=== PATIENT | male | born 1960 | race Caucasian/White ===

== ENCOUNTER 2016-05-12 06:32 | Inpatient (IN) | payer BC ==
[2016-04-11 15:01] VITALS: BMI 35.0
--- NOTE | 2016-04-11 15:35 | PAT Medication Instructions ---
Service Date Apr 11, 2016. Current Home Medication List Aspirin (Aspirin Ec), 81 MG PO QAM Fish Oil (Cabool-3), 2 TAB PO QAM Glucosamine-Chondroitin (Glucosamine & Chondroitin 500-400 mg), 2 TAB PO QAM Ibuprofen (Motrin), 600 MG PO Q6H PRN for Pain Ibuprofen-Diphenhydramine Citr (Ibuprofen Pm), 1 TAB PO HS PRN for RN Multivitamin (Multivitamin), 1 TAB PO QAM [Cinnamon], 2 TAB PO QAM [Pomegranite], 2 TAB PO QAM [Turmeric], 1 TAB PO QAM [Vitamin C], 2 TAB PO QAM [Vitamin D ], 1 TAB PO QAM Medication Instructions For Your Scheduled Surgery - Check with surgeon for instructions: Ibuprofen (Motrin), 600 MG PO Q6H PRN for Pain Ibuprofen-Diphenhydramine Citr (Ibuprofen Pm), 1 TAB PO HS PRN for RN - Hold the following medications 2 weeks prior to surgery: [Turmeric], 1 TAB PO QAM [Cinnamon], 2 TAB PO QAM Fish Oil (Cabool-3), 2 TAB PO QAM Glucosamine-Chondroitin (Glucosamine & Chondroitin 500-400 mg), 2 TAB PO QAM - Hold the following medications the morning of surgery: [Vitamin C], 2 TAB PO QAM [Vitamin D ], 1 TAB PO QAM Multivitamin (Multivitamin), 1 TAB PO QAM [Pomegranate], 2 TAB PO QAM - Take the following medications the morning of surgery with a sip of water: Aspirin (Aspirin Ec), 81 MG PO QAM (okay to continue per surgeon) If you have any questions please call us at [phone] (Lashanda Berkowitz PA-C) or [phone] or [phone]
--- NOTE | 2016-04-11 16:13 | DIAGNOSTIC IMAGING REPORT ---
CHEST 2 VIEWS ROUTINE CLINICAL HISTORY: PAT preoperative evaluation COMPARISON STUDY: No previous studies for comparison. FINDINGS: The bones soft tissues and hemidiaphragms are normal. The cardiomediastinal silhouette is normal. The lungs are clear. The pulmonary vasculature is normal. IMPRESSION: Negative chest. Electronically signed by: Wil Rae M.D. 04/11/2016 4:12 PM Dictated Date/Time: 04/11/2016 4:12 PM
[2016-04-11 16:27] LABS: URINE APPEARANCE CLEAR (CLEAR); URINE BILIRUBIN NEG (NEG); URINE COLOR YELLOW; URINE NITRITE NEG (NEG); URINE SPECIFIC GRAVITY 1.015 (1.000-1.030); UROBILINOGEN NEG (NEG)
[2016-04-11 16:27] LABS: BASO % 0.4 %; BASO ABS # 0.02 K/uL (0-0.2); COMPLETE YES; EOS % 0.5 %; HEMATOCRIT 43.8 % (42-52); IG% 0.2 %; LYMPH % 39.7 %; LYMPH ABS # 2.19 K/uL (1.2-3.4); MEAN CELL VOLUME 86.4 fL (80-100); MEAN PLATELET VOLUME 9.6 fL (7.4-10.4); MONO % 9.6 %; NEUT % 49.6 %; PLATELET COUNT 177 K/uL (130-400); RED BLOOD COUNT 5.07 M/uL (4.7-6.1); WHITE BLOOD COUNT 5.52 K/uL (4.8-10.8)
[2016-04-11 16:34] LABS: MANUAL MICROSCOPIC REQUIRED? NO; REVIEW REQ? NO
[2016-04-11 16:37] LABS: PROTHROMBIN TIME (PATIENT) 10.2 SECONDS (9.0-12.0)
[2016-04-11 16:54] LABS: BUN/CREATININE RATIO 14.2 (10-20); CALCIUM 9.2 mg/dl (8.5-10.1); CREATININE 0.89 mg/dl (0.60-1.40); POTASSIUM 4.5 mmol/L (3.5-5.1)
--- NOTE | 2016-05-10 17:14 | HISTORY & PHYSICAL EXAMINATION ---
DATE OF ADMISSION: 05/12/2016 CHIEF COMPLAINT: Osteoarthritis of the left knee. HISTORY OF PRESENT ILLNESS: Adam is a very pleasant 55-year-old male who had an ACL reconstruction in the past. Unfortunately, he has gone on to develop significant arthritis of the left knee. After failing extensive conservative treatment including multiple injections, he has elected to proceed with a left total knee arthroplasty. PAST MEDICAL HISTORY: Denies. PAST SURGICAL HISTORY: Significant for arthroscopy of bilateral knees and a right shoulder arthroscopy in 2015. ALLERGIES: None. FAMILY HISTORY: Noncontributory. CURRENT MEDICATIONS: Include aspirin 81 mg daily and ibuprofen as needed for pain. FAMILY HISTORY: Noncontributory. SOCIAL HISTORY: He is , has 5 children. Rarely drinks. He is mildly active. REVIEW OF SYSTEMS: He complains of left knee pain. All other pertinent review of systems is negative. PHYSICAL EXAMINATION: GENERAL: He is awake, alert and oriented x3. He is in no apparent distress. He is very pleasant. HEENT: Pupils are equal, round and reactive to light. Extraocular motion intact. Oral mucosa is pink and moist. HEART: Regular rate per radial pulse. LUNGS: Fiona symmetrically bilaterally with no audible breath sounds. ABDOMEN: Soft, nontender, and nondistended. MUSCULOSKELETAL: On physical examination of the left knee, he has good active range of motion. He has no effusion. He has a lot of pain over the medial and lateral joint line and over the patellofemoral region. IMPRESSION: Osteoarthritis of the left knee. PLAN: We will proceed with a Biomet Vanguard left total knee arthroplasty. Postoperatively, he will be kept likely 2 midnights in the hospital for postoperative medical management. We will start him on aspirin 325 mg twice a day postoperatively.
[2016-05-12] VITALS (10 sets, daily range): BP systolic 112–147; BP diastolic 65–90; PULSE 55–97; TEMP 36.4–36.8; O2SAT 94–98; Ht 175.3 cm; Wt 106.4 kg
[~2016-05-12] VITALS: Ht 175.3 cm; Wt 106.4 kg
[~2016-05-12 06:32] MED LIST: ACETAMINOPHEN 500 MG TAB PO SCH; ASPI81TA28 PO; BUPIVACAINE 0.5 % 5 MG/1 ML PF 10ML VIAL ONE; BUPIVACAINE/EPINEPHRINE 0.25% 1:200,000 30 ML VIAL ONE; CEFAZOLIN 2000 MG/60 ML D5W 60 ML IV SCH; CINNAMON PO; FAMOTIDINE 20 MG TAB PO SCH; GABAPENTIN 300 MG CAP PO SCH; GLUC1CAP33 PO; IBUP-1450 PO; IBUP1TAB55 PO; LACTATED RINGER'S 1000ML 1,000 ML IV SCH; LACTATED RINGER'S 1000ML IV SCH; MULT-506 PO; OMEG10007 PO; POMEGRANITE PO; ROPIVACAINE 5MG/ML 30 ML 150 MG, BUPIVACAINE/EPINEPHR 0.5% MPF 30 ML, KETOROLAC TROMETH... INFIL SCH; TURMERIC PO; VITAMIN C PO; VITAMIN D PO
[2016-05-12] MEDS ORDERED: FENTANYL CITRATE INJ 50 MCG/1 ML 2 ML VIAL ONE (06:50)
[2016-05-12] MEDS ORDERED: MIDAZOLAM HCL 1 MG/ML 2ML VIAL ONE ×2 (06:50→09:12)
--- NOTE | 2016-05-12 06:51 | History & Physical Bridge Note ---
H&P Re-Evaluation Bridge Note: I have examined the patient, reviewed the History & Physical and in the interval since the performance of the History & Physical I have noted the following changes of clinical significance: No changes noted
[2016-05-12] MEDS ORDERED: BACITRACIN 50000 UNIT VIAL ONE (07:28)
[2016-05-12] MEDS ORDERED: ORTHO JOINT ANESTHETIC ONE (07:28)
[2016-05-12] MEDS ORDERED: MEPERIDINE HCL 25 MG/ML CARP IV PRN (07:30)
[2016-05-12] MEDS ORDERED: PHENYLEPHRINE 100MCG/ML 5ML SYR IV PRN (07:30)
[2016-05-12] MEDS ORDERED: ONDANSETRON INJ 2 MG/ML 2 ML VIAL IV PRN ×2 (07:30→11:45)
[2016-05-12] MEDS ORDERED: FLUMAZENIL 0.1 MG/1 ML 10 ML VIAL IV PRN (07:30)
[2016-05-12] MEDS ORDERED: HYDROmorphone INJ 2 MG/ML SYR/VIAL IV PRN (07:30)
[2016-05-12] MEDS ORDERED: NALOXONE HCL 0.4 MG/1 ML VIAL/CARP IV PRN (07:30)
[2016-05-12] MEDS ORDERED: FENTANYL CITRATE INJ 50 MCG/1 ML 2 ML VIAL IV PRN (07:30)
[2016-05-12] MEDS ORDERED: LABETALOL HCL IV 5 MG/ML 20ML IV PRN (07:30)
[2016-05-12] MEDS ORDERED: ATROPINE SULFATE 0.1 MG/ML 5ML SYR IV PRN (07:30)
[2016-05-12] MEDS ORDERED: EpHEDrine SULFATE INJ 50 MG/ML AMP IV PRN (07:30)
[2016-05-12] MEDS: TRANEXAMIC ACID INJ 1,000 MG in SODIUM CHLORIDE 0.9% 100ML 100 ML IV SCH ×2 (08:19→14:00)
[2016-05-12] MEDS ORDERED: LIDOCAINE HCL 2% 2 ML VIAL (20MG/ML) ONE (08:47)
[2016-05-12] MEDS ORDERED: PROPOFOL IV EMULSION 10 MG/ML 20 ML VIAL IV ONE ×3 (08:47→11:02)
[2016-05-12] MEDS ORDERED: ONDANSETRON INJ 2 MG/ML 2 ML VIAL ONE (08:47)
--- NOTE | 2016-05-12 11:31 | [facility] Post Operative Brief Note ---
Immediate Operative Summary Operative Date May 12, 2016. Pre-Operative Diagnosis Osteoarthritis left knee Post-Operative Diagnosis Same Procedure(s) Performed Left total knee arthroplasty--cemented Surgeon Dr Jarvis Panel Wirer Surgeon(s) Romel Alicia PA-C Estimated Blood Loss 200ml Findings as above Specimens A. Left knee bone and tissue B. explanted hardware left knee x2 Complication(s) None Disposition Recovery Room / PACU
[2016-05-12] MEDS ORDERED: METOCLOPRAMIDE HCL INJ 5 MG/ML 2 ML VIAL IV PRN (11:45)
[2016-05-12] MEDS ORDERED: MoRPHine SULFATE 2 MG/ML CARP IV PRN (11:45)
[2016-05-12] MEDS ORDERED: BISACODYL 10 MG SUPP PR PRN (11:45)
[2016-05-12] MEDS ORDERED: SOD PHOSPHATE/SOD BIPHOSPHATE ENEMA 132 ML BTL PR PRN (11:45)
[2016-05-12] MEDS ORDERED: SILVER SULFADIAZINE 1% CR 50 GM JAR EXT PRN (11:45)
[2016-05-12] MEDS ORDERED: MAGNESIUM HYDROXIDE SUSP 30 ML UDC PO PRN (11:45)
[2016-05-12] MEDS ORDERED: OXYCODONE HCL IR 5 MG TAB (IMMEDIATE RELEASE) PO PRN (11:45)
--- NOTE | 2016-05-12 12:30 | DIAGNOSTIC IMAGING REPORT ---
TWO VIEWS LEFT KNEE CLINICAL HISTORY: Postoperative examination. FINDINGS: AP and crosstable lateral portable views of the left knee are obtained. A left knee arthroplasty is in near anatomic alignment. There has been undersurface remodeling of the patella. No acute fracture is seen. There are expected postoperative changes around the knee including a surgical drain, soft tissue edema, and subcutaneous gas. IMPRESSION: Expected postoperative changes status post left knee arthroplasty. No acute fracture is seen. Electronically signed by: Nirav Resendiz M.D. 05/12/2016 12:29 PM Dictated Date/Time: 05/12/2016 12:29 PM
--- NOTE | 2016-05-12 12:46 | Anesthesiology Progress Note ---
Anesthesia Post Op Note Date & Time May 12, 2016 at 12:46 Vital Signs Pain Intensity: 0 Vital Signs Past 12 Hours Date Time Temp Pulse Resp B/P Pulse Ox O2 Delivery O2 Flow Rate FiO2 05/12/16 12:25 36.9 58 16 05/12/16 12:25 58 16 114/76 97 05/12/16 12:20 59 13 05/12/16 12:20 60 13 112/76 97 05/12/16 12:15 56 14 05/12/16 12:15 57 14 114/73 96 05/12/16 12:10 57 10 05/12/16 12:10 58 10 107/76 98 05/12/16 12:08 112/78 05/12/16 12:05 36.6 56 16 112/78 98 Nasal Cannula 2 05/12/16 06:50 36.8 81 16 129/80 95 Room Air Notes Mental Status: alert / awake / arousable, participated in evaluation Pt Amnestic to Procedure: Yes Nausea / Vomiting: adequately controlled Pain: adequately controlled Airway Patency, RR, SpO2: stable & adequate BP & HR: stable & adequate Hydration State: stable & adequate Neuraxial Anesthesia: was administered, sensory block is resolving Anesthetic Complications: no major complications apparent
[2016-05-12] MEDS: D5W AND 1/2NSS + 20MEQ KCL 1,000 ML IV SCH (14:06)
[2016-05-12] MEDS: ACETAMINOPHEN IV 1,000 MG in EMPTY BAG 0 ML IV SCH ×2 (14:07→22:21)
[2016-05-12] MEDS ORDERED: NURSING VERBAL MED ORDER ONE (16:15)
--- NOTE | 2016-05-12 16:58 | OPERATIVE REPORT ---
DATE OF OPERATION: 05/12/2016 PREOPERATIVE DIAGNOSIS: Osteoarthritis of the left knee status post anterior cruciate ligament reconstruction. POSTOPERATIVE DIAGNOSIS: Same. PROCEDURE: Left total knee arthroplasty with removal of hardware. SURGEON: Dr. Tim Jarvis. HOT BLAST WORKER: Romel Alicia PA-C, whose assistance was necessary for positioning the leg and helping with instrumentation. ANESTHESIA: Spinal with a left adductor nerve block. COMPLICATIONS: None. CONDITION: Stable to PACU. INDICATIONS FOR PROCEDURE: Adam is a pleasant 55-year-old male who presented to my office with increasing left knee pain. He had an ACL done in the past and had 2 metal interference screws, one on the femoral side and the other on the tibial side. Unfortunately, he was progressing on to arthritis in this knee and after failing extensive conservative treatment, elected to undergo a left total knee arthroplasty. DESCRIPTION OF PROCEDURE: On 05/12/2016, he arrived at [facility] for the above procedure. He was seen in the preoperative holding area and the operative extremity was identified and signed. He was given a preoperative antibiotic and taken back to the operating room, laid on the table in supine position. He had a spinal anesthetic and a left adductor nerve block. The left knee was then prepped and draped in sterile fashion. Time-out was done and the patient and operative extremity was properly identified. A standard incision was made directly over the patella. Dissection was taken down through the fascia and a medial parapatellar approach was used. There was some scarring of the patella tendon, which made the case a little bit more difficult. Time was spent doing a release of the medial and lateral meniscus as well as the ACL and PCL. The patella was everted. It was very large patella. An 8 mm was resected off the posterior patella. The patella measured to be a size 34 and 3 drill holes were placed. The knee was then flexed. A drill was sent down the center of the femoral canal. An intramedullary kristina was then placed. Off that kristina, a distal femoral cutting block was placed and 9 mm was resected off the distal femur. A posterior referencing guide was then used and the femur measured to be a size 72.5. Two drill holes were placed in 3 degrees of external rotation and a 4-in-1 cutting block was impacted into place. Anterior, posterior and chamfer cuts were then made. A box cutting guide was then placed and the box was resected for the posterior stabilizing component. The proximal tibia was then exposed. A drill was sent down the center of the tibial canal followed by an intramedullary kristina. Off that kristina, a proximal tibial resection guide was placed and 2 mm was resected off the low medial side. This was checked with a spacer block and I did have to take an additional 2 mm off the proximal tibia. The tibia measured to be a size 75. It was set in appropriate rotation and the tibia was then drilled and punched. Trial components were placed. The knee was brought through a full range of motion and felt to be stable. The surrounding soft tissues were irrigated with 3 liters of normal saline solution with bacitracin. Surrounding soft tissues were also injected with 100 mL of orthopedic pain control cocktail. The femoral, tibial, and patellar components were then cemented in place with Palacos-G cement. A size 10 polyethylene insert was used. It was snapped into place and anterior bar was locked. The knee was brought through a full range of motion and felt to be stable. Two drains were placed. The extensor mechanism was closed with #2 FiberWire suture in the superior aspect of the patella and #1 Vicryl further proximally and distally. The skin was closed with 2-0 Vicryl and 3-0 V-Loc suture and a Prineo dressing. He was then placed in a soft compressive dressing and taken to the postanesthesia care unit in stable condition. He tolerated the procedure well. To note, while drilling both the femoral and tibial canals, I did encounter the metal interference screws from his ACL reconstruction. Time was spent taking these screws out of the canals. IMPLANTS USED: I used a Biomet Vanguard left total knee arthroplasty with a 72.5 left femur, a 75 mm tibia, a 34 x 8.5 patella and a 10-mm posterior stabilized bearing. All complements were cemented with Palacos-G cement. I attest to the content of the Intraoperative Record and any orders documented therein. Any exceptions are noted below. DUYEN
[2016-05-12] MEDS: CEFAZOLIN IV 2,000 MG in DEXTROSE 5% 50ML 50 ML IV SCH (17:16)
[2016-05-12] MEDS: KETOROLAC TROMETHAMINE 30 MG/ML VIAL IV. SCH ×2 (17:19→22:20)
[2016-05-12] MEDS: ASPIRIN 325 MG ECTAB PO SCH (21:16)
[2016-05-12] MEDS: DOCUSATE SODIUM 100 MG CAP PO SCH (21:16)
[2016-05-12] MEDS: SENNA 8.6 MG TAB PO SCH (21:17)
[2016-05-12] MEDS: ZOLPIDEM TARTRATE 10 MG TAB PO PRN (22:30)
[2016-05-13] VITALS (7 sets, daily range): BP systolic 101–130; BP diastolic 63–80; PULSE 57–87; TEMP 36.8–37.3; O2SAT 92–97
[2016-05-13] MEDS: CEFAZOLIN IV 2,000 MG in DEXTROSE 5% 50ML 50 ML IV SCH (00:08)
[2016-05-13] MEDS: D5W AND 1/2NSS + 20MEQ KCL 1,000 ML IV SCH ×3 (00:08→08:45)
[2016-05-13] MEDS: KETOROLAC TROMETHAMINE 30 MG/ML VIAL IV. SCH ×4 (04:15→21:56)
[2016-05-13 05:30] LABS: HEMATOCRIT 34.1 % (42-52); MEAN CORPUSCULAR HEMOGLOBIN 31.1 pg (25-34); MEAN CORPUSCULAR HGB CONC 35.8 g/dl (32-36); MEAN PLATELET VOLUME 9.4 fL (7.4-10.4); PLATELET COUNT 154 K/uL (130-400); RED BLOOD COUNT 3.92 M/uL (4.7-6.1); WHITE BLOOD COUNT 13.19 K/uL (4.8-10.8)
[2016-05-13 05:54] LABS: BUN/CREATININE RATIO 17.1 (10-20); CALCIUM 8.2 mg/dl (8.5-10.1); CREATININE 0.93 mg/dl (0.60-1.40); POTASSIUM 4.8 mmol/L (3.5-5.1)
[2016-05-13] MEDS: ACETAMINOPHEN IV 1,000 MG in EMPTY BAG 0 ML IV SCH ×3 (06:01→22:29)
[2016-05-13] MEDS: PANTOprazole SOD 40 MG TAB PO SCH (08:45)
[2016-05-13] MEDS: ASPIRIN 325 MG ECTAB PO SCH ×2 (08:45→20:39)
[2016-05-13] MEDS: DOCUSATE SODIUM 100 MG CAP PO SCH ×2 (08:45→20:39)
[2016-05-13] MEDS: MULTIVITAMIN TAB PO SCH (08:45)
--- NOTE | 2016-05-13 09:09 | PROGRESS NOTE ---
DATE: 05/13/2016 CHIEF COMPLAINT: Status post left total knee arthroplasty postop day #1. PROGRESS: Adam was seen and examined at bedside today. Overall, he is doing fairly well. He has very little pain in his knee. He is happy with his progress at this point, has no complaints. PHYSICAL EXAMINATION: LEFT KNEE: The dressing is clean and dry and the drain is to suction. He has active dorsiflexion and plantar flexion of his left ankle. Sensation is intact throughout. DATA: He has an H\T\H today of 12.2 and 34.1. His glucose is 127. His vital signs are all stable on room air. He is voiding on his own. X-rays postoperatively of the left knee showed the prosthesis to be in near anatomic alignment without any evidence of fracture, dislocation or loosening. IMPRESSION: Status post left total knee arthroplasty postop day #1. PLAN: At this point, he is doing fairly well. He will be seen by physical therapy today and will work on pain control. Tomorrow the nursing staff can change the dressing and pull the drain and I am planning to discharge him to home with [facility].
[2016-05-13] MEDS: SENNA 8.6 MG TAB PO SCH (20:38)
[2016-05-13] MEDS: ZOLPIDEM TARTRATE 10 MG TAB PO PRN (20:39)
[2016-05-14] MEDS: KETOROLAC TROMETHAMINE 30 MG/ML VIAL IV. SCH ×2 (04:06→10:42)
[2016-05-14] MEDS: ACETAMINOPHEN IV 1,000 MG in EMPTY BAG 0 ML IV SCH (05:48)
[2016-05-14 05:56] VITALS: BP 137/78; PULSE 76; TEMP 37; O2SAT 95
[2016-05-14] MEDS: ASPIRIN 325 MG ECTAB PO SCH (07:42)
[2016-05-14] MEDS: DOCUSATE SODIUM 100 MG CAP PO SCH (07:42)
[2016-05-14] MEDS: MULTIVITAMIN TAB PO SCH (07:42)
[2016-05-14] MEDS: PANTOprazole SOD 40 MG TAB PO SCH (07:43)
[2016-05-14] MEDS ORDERED: RXC5 PO (09:31)
--- NOTE | 2016-05-14 09:32 | Discharge Instructions ---
Discharge Instructions Date of Service May 14, 2016. Admission Reason for Admission: Left Knee Osteoarthritis Discharge Discharge Diagnosis / Problem: Left Total Knee Discharge Goals Goal(s): Decrease discomfort, Improve function Activity Recommendations Activity Limitations: resume your previous activity Shower/Bathe: may shower/bathe in 3 days . Instructions / Follow-Up Instructions / Follow-Up may shower tomorrow, leave glue dressing in place Current Hospital Diet Patient's current hospital diet: Regular Diet Discharge Diet Recommended Diet: Regular Diet Procedures Procedures Performed: Left total knee arthroplasty--cemented Pending Studies Studies pending at discharge: no Medical Emergencies . Who to Call and When: Medical Emergencies: If at any time you feel your situation is an emergency, please call 911 immediately. . Non-Emergent Contact Non-Emergency issues call your: Surgeon Call Non-Emergent contact if: wound has increased drainage, wound has increased redness . "Provider Documentation" section prepared by Tim Jarvis. VTE Core Measure Inpt VTE Proph given/why not?: Other Anticoagulation (Aspirin 325 twice a day for 6 weeks)
--- NOTE | 2016-05-14 09:55 | PROGRESS NOTE ---
DATE: 05/14/2016 CHIEF COMPLAINT: Status post left total knee arthroplasty, postop day #2. PROGRESS: Adam was seen and examined at bedside today. Overall, he is doing very well. He had some soreness in his knee, but it certainly tolerable. He was able to get some sleep last night. He has been working well with physical therapy. He has no new complaints. PHYSICAL EXAMINATION: LEFT KNEE: The dressing has been changed. The drain has been pulled. His leg is out to full extension. He has active dorsiflexion and plantarflexion of his left ankle and sensation is intact throughout. IMPRESSION: Status post left total knee arthroplasty, postop day #2. PLAN: At this point, he is doing well. His pain is well controlled on the oral pain medications and he is participating well with physical therapy. We will discharge him to home later this morning with the [facility].
--- NOTE | 2016-05-14 10:13 | DISCHARGE SUMMARY ---
DISCHARGE DIAGNOSIS: Primary osteoarthritis of the left knee. PROCEDURE: Left total knee arthroplasty on 05/12/[address] Tim Jarvis. DISCHARGE INSTRUCTIONS: 1. Oxycodone 5-10 mg every 4 hours as needed for pain. 2. Aspirin 325 mg twice a day for 6 weeks. 3. SRINIVAS hose stockings for 6 weeks. 4. Start physical therapy this week. 5. Follow up with Dr. Jarvis in 2 weeks. 6. Continue home supplementations. HOSPITAL COURSE: Adam is a pleasant 55-year-old male who presented to my office with left knee pain. He had an ACL reconstruction in the past and he has gone on to develop osteoarthritis of the knee. After failing years of conservative treatment, he elected to undergo a total knee arthroplasty. On 05/12/2016, he arrived at [facility] and underwent a left knee replacement without complications. He had a spinal anesthetic and a left adductor nerve block. Postoperatively, he was discharged to general orthopedic floor. His hospital course was uneventful. On postop day #1, his H\T\H was stable at 12.2 and 34.1. His pain was controlled on oral medications. He was ambulating well with physical therapy. On postop day #2, the dressing was changed, the drain was pulled and he continued to do well with therapy. His pain was controlled and he was subsequently discharged to home with [employer] and the above discharge instructions.
[2016-05-14 10:24] VITALS: BP 137/78; PULSE 76; TEMP 37; O2SAT 95
== END 2016-05-14 11:58 | disposition home health service (06) | DRG 470 ==
LOC: ENRESERVDT → ENRESERVTM → C.ACU 06:32 → C.3E 11:36
PROVIDERS: ADMIT Orthopaedic Surgery; ATTEND Orthopaedic Surgery
PROC: 0SRD0J9 Replacement of Left Knee Joint with Synthetic Substitute, Cemented, Open Approach (ICD-10-PCS; principal; 2016-05-12 08:45)
DX: M17.12 Unilateral primary osteoarthritis, left knee (principal); Z79.82 Long term (current) use of aspirin

== ENCOUNTER 2017-06-16 09:39 | Emergency (ER) | payer BC, OTHER ==
[~2017-06-16] VITALS: Ht 175.3 cm; Wt 107.6 kg
[~2017-06-16 09:39] MED LIST changes: -ACETAMINOPHEN 500 MG TAB PO SCH; -ASPI81TA28 PO; -BUPIVACAINE 0.5 % 5 MG/1 ML PF 10ML VIAL ONE; -BUPIVACAINE/EPINEPHRINE 0.25% 1:200,000 30 ML VIAL ONE; -CEFAZOLIN 2000 MG/60 ML D5W 60 ML IV SCH; -FAMOTIDINE 20 MG TAB PO SCH; -GABAPENTIN 300 MG CAP PO SCH; -LACTATED RINGER'S 1000ML 1,000 ML IV SCH; -LACTATED RINGER'S 1000ML IV SCH; -ROPIVACAINE 5MG/ML 30 ML 150 MG, BUPIVACAINE/EPINEPHR 0.5% MPF 30 ML, KETOROLAC TROMETH... INFIL SCH; +RXC5 PO
[2017-06-16 09:42] VITALS: TEMP 36.8; Ht 175.3 cm; Wt 107.6 kg
[2017-06-16 10:07] LABS: BASO % 0.3 %; BASO ABS # 0.02 K/uL (0-0.2); EOS % 0.5 %; EOS ABS # 0.03 K/uL (0-0.5); HEMATOCRIT 43.8 % (42-52); HEMOGLOBIN 16.3 g/dL (14.0-18.0); IG# 0.01 K/uL (0.00-0.02); LYMPH % 33.1 %; LYMPH ABS # 1.94 K/uL (1.2-3.4); MEAN CELL VOLUME 85.9 fL (80-100); MEAN CORPUSCULAR HGB CONC 37.2 g/dl (32-36); MEAN PLATELET VOLUME 9.5 fL (7.4-10.4); MONO % 8.7 %; MONO ABS # 0.51 K/uL (0.11-0.59); NEUT % 57.2 %; NEUT ABS # 3.35 K/uL (1.4-6.5); PLATELET COUNT 158 K/uL (130-400); RED CELL DISTRIBUTION WIDTH CV 12.5 % (11.5-14.5); RED CELL DISTRIBUTION WIDTH SD 39.8 fL (36.4-46.3); WHITE BLOOD COUNT 5.86 K/uL (4.8-10.8)
[2017-06-16 10:28] LABS: ALBUMIN 3.9 gm/dl (3.4-5.0); CREATININE 0.9 mg/dl (0.60-1.40); POTASSIUM 4.1 mmol/L (3.5-5.1)
[2017-06-16] MEDS ORDERED: ASPI81TA28 PO (10:28)
[2017-06-16 10:30] LABS: TOTAL PROTEIN 7.8 gm/dl (6.4-8.2)
[2017-06-16 10:42] LABS: INR 0.9 (0.9-1.1); PTT PATIENT 24.7 SECONDS (21.0-31.0)
--- NOTE | 2017-06-16 13:10 | DIAGNOSTIC IMAGING REPORT ---
CT ABD/PELVIS IV AND ORAL CONT CLINICAL HISTORY: Midline abdominal pain COMPARISON STUDY: None. TECHNIQUE: Following the IV administration of 94 mL of Optiray-320, CT scan of the abdomen and pelvis was performed from the lung bases to the proximal femurs. Images are reviewed in the axial, sagittal, and coronal planes. IV contrast was administered without complication. A dose lowering technique was utilized adhering to the principles of ALARA. CT DOSE: 978.78 mGy.cm FINDINGS: Lower chest: The heart is normal in size and configuration, without pericardial effusion. The lung bases and pleural spaces are clear. Liver: There is mild hepatic steatosis. No focal masses are visualized. The portal vein appears patent. Gallbladder: Unremarkable. Spleen: Normal in size and attenuation. Pancreas: Unremarkable. Adrenal glands: Unremarkable. Kidneys: There is symmetric renal cortical enhancement. The kidneys are normal in size without hydronephrosis. Bowel: There are no transition zones indicate bowel obstruction. The appendix appears normal. There is no acute diverticulitis. Peritoneum: There is no intraperitoneal free air or abdominal ascites. There is a tiny fat-containing umbilical hernia. Vasculature: The abdominal aorta is normal in course and caliber. Adenopathy: None. Pelvic viscera: The bladder, and pelvic viscera are unremarkable. Skeletal structures: No destructive osseous lesions are seen. IMPRESSION: 1. Mild hepatic steatosis 2. No evidence of bowel obstruction. No evidence of free air 3. Normal appendix 4. No evidence of acute diverticulitis 5. Tiny fat-containing umbilical hernia Electronically signed by: Gurjit Castaneda M.D. 06/16/2017 1:08 PM Dictated Date/Time: 06/16/2017 1:05 PM
[2017-06-16] MEDS ORDERED: OPTIRAY 320 IV PRN (13:15)
[2017-06-16 14:05] VITALS: BP 138/88; PULSE 61; O2SAT 96
--- NOTE | 2017-06-16 16:25 | EMERGENCY ROOM VISIT NOTE ---
History Report prepared by Chacho: René Bertrand Under the Supervision of: Dr. Miller Miller M.D. First contact with patient: 10:11 Chief Complaint: ABDOMINAL PAIN Stated Complaint: ABDOMINAL PAIN - CENTER Nursing Triage Summary: Patient c/o of abdominal pain since yesterday. Patient points to mid abdomen to lower abdomen. Patient reports hx of polyps. Denies n/v/d or constipation. History of Present Illness The patient is a 56 year old male who presents to the Emergency Room with complaints of constant, severe midline abdominal pain beginning yesterday morning. The patient reports that he had not eaten anything prior to the onset of his pain. He states that the pain is completely alleviated by lying down, but elicited by sitting up, movement, or pressure applied upon the region. The patient reports that the pain is most intense when pressure is applied on his abdomen. The patient denies any vomiting, diarrhea, black or bloody stools, or any abnormal bowel movements. He notes that he had abdominal surgery performed as an , but does not know what the procedure was. He was told that his appendix is on the other side of his body. He has not heard of the terms malrotation or situs inversus. He was seen at an urgent care center and sent here to rule out appendicitis. Source of History: patient Onset: 1 day ago. Position: abdomen (midline ) Symptom Intensity: severe Timing: constant Modifying Factors (Worsening): movement, other (pressure ) Modifying Factors (Relieving): other (lying down ) Associated Symptoms: No vomiting, No melena, No diarrhea Note: Denies: abnormal bowel movements. Review of Systems See HPI for pertinent positives & negatives. A total of 10 systems reviewed and were otherwise negative. Past Medical & Surgical Medical Problems: (1) Osteoarthritis of knee Family History Patient reports no known family medical history. Social History Smoking Status: Never Smoker Alcohol Use: occasionally Marital Status: Current/Historical Medications Scheduled Aspirin (Aspirin Ec), 81 MG PO DAILY Fish Oil ([place]-3), 2 TAB PO QAM Glucosamine-Chondroitin (Glucosamine & Chondroitin 500-400 mg), 2 TAB PO QAM Multivitamin (Multivitamin), 1 TAB PO QAM [Cinnamon], 2 TAB PO QAM [Pomegranite], 2 TAB PO QAM [Turmeric], 1 TAB PO QAM [Vitamin C], 2 TAB PO QAM [Vitamin D ], 1 TAB PO QAM Scheduled PRN Ibuprofen (Motrin), 600 MG PO Q6H PRN for Pain Ibuprofen-Diphenhydramine Citr (Ibuprofen Pm), 1 TAB PO HS PRN for RN Allergies Coded Allergies: No Known Allergies (Unverified , 06/16/17) Physical Exam Vital Signs Date Time Temp Pulse Resp B/P (MAP) Pulse Ox O2 Delivery O2 Flow Rate FiO2 06/16/17 14:05 61 16 138/88 96 06/16/17 12:23 77 18 134/89 96 Room Air 06/16/17 10:59 77 18 131/89 96 Room Air 06/16/17 09:42 36.8 77 18 140/92 96 Room Air Physical Exam Constitutional: Vital signs reviewed. Eyes: Pupils are equal round reactive to light. Conjunctiva are noninjected. ENT: Pharynx is clear without erythema or exudate. Mucous membranes are moist. Neck supple without meningeal signs. Respiratory: Clear to auscultation bilaterally. Breath sounds are equal bilaterally. Cardiovascular: Regular rate and rhythm. No rubs or gallops. GI: Midline tenderness from the epigastrium down to suprapubic region without guarding. No CVA tenderness.. Bowel sounds are present. Musculoskeletal: No peripheral edema. No lower extremity tenderness. Integumentary: No cyanosis. Neurological: The patient is awake and alert. No focal deficits. Psychiatric: Normal affect. Medical Decision & Procedures ER Provider Diagnostic Interpretation: Radiology results as stated below per my review and the radiologist's interpretation: CT ABD/PELVIS IV AND ORAL CONT CLINICAL HISTORY: Midline abdominal pain COMPARISON STUDY: None. TECHNIQUE: Following the IV administration of 94 mL of Optiray-320, CT scan of the abdomen and pelvis was performed from the lung bases to the proximal femurs. Images are reviewed in the axial, sagittal, and coronal planes. IV contrast was administered without complication. A dose lowering technique was utilized adhering to the principles of ALARA. CT DOSE: 978.78 mGy.cm FINDINGS: Lower chest: The heart is normal in size and configuration, without pericardial effusion. The lung bases and pleural spaces are clear. Liver: There is mild hepatic steatosis. No focal masses are visualized. The portal vein appears patent. Gallbladder: Unremarkable. Spleen: Normal in size and attenuation. Pancreas: Unremarkable. Adrenal glands: Unremarkable. Kidneys: There is symmetric renal cortical enhancement. The kidneys are normal in size without hydronephrosis. Bowel: There are no transition zones indicate bowel obstruction. The appendix appears normal. There is no acute diverticulitis. Peritoneum: There is no intraperitoneal free air or abdominal ascites. There is a tiny fat-containing umbilical hernia. Vasculature: The abdominal aorta is normal in course and caliber. Adenopathy: None. Pelvic viscera: The bladder, and pelvic viscera are unremarkable. Skeletal structures: No destructive osseous lesions are seen. IMPRESSION: 1. Mild hepatic steatosis 2. No evidence of bowel obstruction. No evidence of free air 3. Normal appendix 4. No evidence of acute diverticulitis 5. Tiny fat-containing umbilical hernia Electronically signed by: Gurjit Castaneda M.D. 06/16/2017 1:08 PM Dictated Date/Time: 06/16/2017 1:05 PM Laboratory Results 06/16/17 09:55 Red Blood Count 5.10, Mean Corpuscular Volume 85.9, Mean Corpuscular Hemoglobin 32.0, Mean Corpuscular Hemoglobin Concent 37.2, Mean Platelet Volume 9.5, Neutrophils (%) (Auto) 57.2, Lymphocytes (%) (Auto) 33.1, Monocytes (%) (Auto) 8.7, Eosinophils (%) (Auto) 0.5, Basophils (%) (Auto) 0.3, Neutrophils # (Auto) 3.35, Lymphocytes # (Auto) 1.94, Monocytes # (Auto) 0.51, Eosinophils # (Auto) 0.03, Basophils # (Auto) 0.02 06/16/17 09:55 Test 06/16/17 09:55 06/16/17 11:00 White Blood Count 5.86 K/uL (4.8-10.8) Red Blood Count 5.10 M/uL (4.7-6.1) Hemoglobin 16.3 g/dL (14.0-18.0) Hematocrit 43.8 % (42-52) Mean Corpuscular Volume 85.9 fL (80-100) Mean Corpuscular Hemoglobin 32.0 pg (25-34) Mean Corpuscular Hemoglobin Concent 37.2 g/dl (32-36) Platelet Count 158 K/uL (130-400) Mean Platelet Volume 9.5 fL (7.4-10.4) Neutrophils (%) (Auto) 57.2 % Lymphocytes (%) (Auto) 33.1 % Monocytes (%) (Auto) 8.7 % Eosinophils (%) (Auto) 0.5 % Basophils (%) (Auto) 0.3 % Neutrophils # (Auto) 3.35 K/uL (1.4-6.5) Lymphocytes # (Auto) 1.94 K/uL (1.2-3.4) Monocytes # (Auto) 0.51 K/uL (0.11-0.59) Eosinophils # (Auto) 0.03 K/uL (0-0.5) Basophils # (Auto) 0.02 K/uL (0-0.2) RDW Standard Deviation 39.8 fL (36.4-46.3) RDW Coefficient of Variation 12.5 % (11.5-14.5) Immature Granulocyte % (Auto) 0.2 % Immature Granulocyte # (Auto) 0.01 K/uL (0.00-0.02) Prothrombin Time 9.9 SECONDS (9.0-12.0) Prothromb Time International Ratio 0.9 (0.9-1.1) Activated Partial Thromboplast Time 24.7 SECONDS (21.0-31.0) Partial Thromboplastin Ratio 1.0 Anion Gap 3.0 mmol/L (3-11) Est Creatinine Clear Calc Drug Dose 110.8 ml/min Estimated GFR () 110.3 Estimated GFR (Non- 95.1 BUN/Creatinine Ratio 12.1 (10-20) Calcium Level 9.0 mg/dl (8.5-10.1) Total Bilirubin 1.2 mg/dl (0.2-1) Aspartate Amino Transf (AST/SGOT) 13 U/L (15-37) Alanine Aminotransferase (ALT/SGPT) 33 U/L (12-78) Alkaline Phosphatase 69 U/L (45-117) Total Protein 7.8 gm/dl (6.4-8.2) Albumin 3.9 gm/dl (3.4-5.0) Globulin 3.9 gm/dl (2.5-4.0) Albumin/Globulin Ratio 1.0 (0.9-2) Lipase 201 U/L (73-393) Urine Color YELLOW Urine Appearance CLEAR (CLEAR) Urine pH 7.0 (4.5-7.5) Urine Specific Makinen 1.006 (1.000-1.030) Urine Protein NEG (NEG) Urine Glucose (UA) NEG (NEG) Urine Ketones NEG (NEG) Urine Occult Blood NEG (NEG) Urine Nitrite NEG (NEG) Urine Bilirubin NEG (NEG) Urine Urobilinogen NEG (NEG) Urine Leukocyte Esterase NEG (NEG) Laboratory results as reviewed by me. ED Course 1018: The patient was evaluated in room C02. A complete history and physical exam was performed. 1146: I discussed test results with the patient. Waiting on CT scan reading for further treatment plan. 1319: I discussed the patient's CT results with the patient. I was able to successfully reduce his umbilical hernia. The patient feels much better now. 1353: I discussed the patient's case with Collin VELASQUEZ for general surgery. She states that the patient should schedule an appointment as an outpatient. I discussed discharge and return instructions with the patient. Upon reevaluation , the patient appeared to have improvement of his symptoms. I discussed violeta' s findings with him. He verbalized agreement of the treatment plan. He was discharged home. Medical Decision This is a 56-year-old male who presents with abdominal pain. Differential diagnosis includes pancreatitis, gastritis, diverticulitis, appendicitis, UTI, hernia. I did perform a limited focused review of portions of the patient's old chart on the electronic medical record. The patient has had no recent pertinent visits to this hospital. I did evaluate the patient as noted above. Patient has had pain since yesterday morning. Is worse when he moves. He is tender throughout the midline of his abdomen seemingly worse just above his umbilicus. He was sent here by an urgent care center rule out appendicitis. He states he is not sure if his appendix is on the left of the right side. He had surgery as an and told that his bowels were twisted. IV access was established. The patient declined any pain medication. I did order and personally review the patient's urine analysis as described above. I did order and review the patient's blood work as noted in the electronic medical record. His labs are unremarkable. There is no elevation of his white blood cell count. Lipase is unremarkable. I did order a CT of the abdomen and pelvis. I did review the images myself as well as the radiology report as described above. There is no acute process other than a fat-containing umbilical hernia. I did reexamine the patient. He is quite tender over the umbilicus. I was able to slowly and easily reduce a small umbilical hernia. He stated he felt much better afterwards although he still had some soreness to the area above his umbilicus. I did discuss precautions regarding activity with him. I did speak to the general surgery service who will follow up as an outpatient. He was discharged and referred to Dr. Virgen of surgery. He was given return instructions as outlined below. Medication Reconcilliation Current Medication List: was personally reviewed by me Blood Pressure Screening Patient's blood pressure: Elevated blood pressure Blood pressure disposition: Referred to PCP The patient is hypertensive. Consults Time Called: 1345 Consulting Physician: Collin VELASQUEZ for general surgery Returned Call: [phone] I discussed the patient's case with Collin VELASQUEZ for general surgery. She states that the patient should schedule an appointment as an outpatient. Impression Primary Impression: Incarcerated umbilical hernia Scribe Attestation The scribe's documentation has been prepared under my direct and personally reviewed by me in its entirety. I confirm that the note above accurately reflects all work, treatment, procedures, and medical decision making performed by me. Departure Information Dispostion Home / Self-Care Referrals Jovi Bacon M.D. (PCP) Forms Call Back Authorization, HOME CARE DOCUMENTATION FORM, IMPORTANT VISIT INFORMATION Patient Instructions 5-Hydroxyindoleacetic Acid Urine, My [facility] Additional Instructions You have been examined and treated today on an emergency basis only. This is not a substitute for, or an effort to provide, complete comprehensive medical care. It is impossible to recognize and treat all injuries or illnesses in a single emergency department visit. It is therefore important that you follow up closely with Dr. Virgen of surgery. Call as soon as possible for an appointment. Return for worsening symptoms or if you develop fever, vomiting, rectal bleeding or any other concerning symptoms.
== END 2017-06-16 14:05 | disposition home or self-care (01) ==
LOC: C.EDB 09:41 → C.EDC 14:05
DX: K42.0 Umbilical hernia with obstruction, without gangrene (principal); R03.0 Elevated blood-pressure reading, without diagnosis of hypertension; Z79.82 Long term (current) use of aspirin

== ENCOUNTER → 2017-06-19 | Outpatient (CLI) | payer OTHER ==
[~2017-06-19] MED LIST changes: +ASPI81TA28 PO; +DIPH-437 PO; +OXYC-57 PO; -RXC5 PO
--- NOTE | 2017-06-19 17:28 | DIAGNOSTIC IMAGING REPORT ---
CHEST 2 VIEWS ROUTINE CLINICAL HISTORY: Preoperative chest COMPARISON STUDY: April 11, 2016 FINDINGS: The cardiac and mediastinal contours are normal. There is no evidence of focal pulmonary consolidation. There is no evidence of failure. No pleural effusions are visualized.[ There is a small left cardiophrenic angle fat pad. IMPRESSION: No active disease in the chest. Electronically signed by: Gurjit Castaneda M.D. 06/19/2017 5:27 PM Dictated Date/Time: 06/19/2017 5:26 PM
== END | disposition home or self-care (01) ==
LOC: C.LAB 16:49
PROVIDERS: ATTEND Surgery
DX: Z01.818 Encounter for other preprocedural examination (principal); K42.9 Umbilical hernia without obstruction or gangrene

== ENCOUNTER → 2017-06-21 | Day surgery (SDC) | payer OTHER ==
[2017-06-20 09:36] VITALS: BMI 34.0
[~2017-06-21] VITALS: Ht 175.3 cm; Wt 106.4 kg
[~2017-06-21] MED LIST changes: +ATROPINE SULFATE 0.1 MG/ML 5ML SYR IV PRN; +BACITRACIN 50000 UNIT VIAL ONE; +BUPIVACAINE/EPINEPHRINE 0.5% MPF 1:200,000 30 ML VIAL ONE; +CHECK SCOPOLAMINE PATCH PLACEMENT SCH; +DEXAMETHASONE SOD INJ 4 MG/ML VIAL ONE; +EpHEDrine SULFATE INJ 50 MG/ML AMP IV PRN; +FENTANYL CITRATE INJ 50 MCG/1 ML 2 ML VIAL IV PRN; +FENTANYL CITRATE INJ 50 MCG/1 ML 2 ML VIAL ONE; +GLYCOPYRROLATE INJ 0.2 MG/ML VIAL ONE; +HYDROmorphone INJ 2 MG/ML SYR/VIAL IV PRN; +KETOROLAC TROMETHAMINE 30 MG/ML VIAL ONE; +LABETALOL HCL IV 5 MG/ML 20ML IV PRN; +LACTATED RINGER'S 1000ML 1,000 ML IV SCH; +LARYING-O-JET KIT (LTA) ONE; +LIDOCAINE HCL 2% 2 ML VIAL (20MG/ML) ONE; +MIDAZOLAM HCL 1 MG/ML 2ML VIAL ONE; +MoRPHine SULFATE 2 MG/ML CARP IV PRN; +NEOSTIGMINE METHYLSULFATE 5 MG/5 ML SYR ONE; +ONDANSETRON INJ 2 MG/ML 2 ML VIAL IV PRN; +ONDANSETRON INJ 2 MG/ML 2 ML VIAL ONE; +OXYCODONE/ACETAMINOPHEN 5-325 TAB PO PRN; +PHENYLEPHRINE 100MCG/ML 5ML SYR IV PRN; +PROMETHAZINE HCL INJ 12.5 MG in SODIUM CHLORIDE 0.9% 50ML 50 ML IV PRN; +PROPOFOL IV EMULSION 10 MG/ML 20 ML VIAL IV ONE; +ROCURONIUM BROMIDE 10 MG/ML 5 ML VIAL IV ONE; +SCOPOLAMINE 1.5 MG TDSY TD ONE; +SCOPOLAMINE 1.5 MG TDSY TD SCH
[2017-06-21 06:35] VITALS: BP 123/79; PULSE 65; TEMP 36.9; O2SAT 95; Ht 175.3 cm; Wt 106.4 kg
--- NOTE | 2017-06-21 07:30 | History & Physical Bridge Note ---
H&P Re-Evaluation Bridge Note: I have examined the patient, reviewed the History & Physical and in the interval since the performance of the History & Physical I have noted the following changes of clinical significance: No changes noted at bedside, pt marked, all questions answered
--- NOTE | 2017-06-21 08:51 | [facility] Post Operative Brief Note ---
Immediate Operative Summary Operative Date Jun 21, 2017. Pre-Operative Diagnosis Umbilical hernia Post-Operative Diagnosis SAME HEMATOMA LEFT RECTUS Procedure(s) Performed repair inc umbilical hernia and left rectus muscle biopsy Surgeon Dr. Virgen Counsellors Surgeon(s) albert bolaños Estimated Blood Loss 5cc Findings See Below as post op dx Specimens left rectus muscle biopsy
--- NOTE | 2017-06-21 09:13 | Discharge Instructions ---
Discharge Instructions Date of Service Jun 21, 2017. Visit Reason for Visit: Umbilical Hernia Discharge Discharge Diagnosis / Problem: repair of hernia Discharge Goals Goal(s): Decrease discomfort Activity Recommendations Activity Limitations: as noted below Lifting Limitations: no more than 10 pounds Shower/Bathe: tomorrow Driving or Machine Use: resume 3 days after discharge Anesthesia . Post Anesthesia Instructions: If you have had General Anesthesia or IV Sedation: * Do not drive today. * Resume driving when surgeon permits. * Do not make important decisions or sign legal documents today. * Call surgeon for: 1. Temperature elevations greater than 101 degrees F. 2. Uncontrollable pain. 3. Excessive bleeding. 4. Persistent nausea and vomiting. 5. Medication intolerance (nausea, vomiting or rash). * For nausea and vomiting use only clear liquids such as: tea, soda, bouillon until nausea subsides, then gradually increase diet as tolerated. * If you have any concerns or questions, call your surgeon's office. If physician is unavailable and it is an emergency, call 911 or go to the nearest emergency room. . Instructions / Follow-Up Instructions / Follow-Up Dr. Virgen in 1 week, call [phone] if you need to schedule an appt or have any questions Your bandage is waterproof, shower over it for two days then you may remove the bandage Diet Recommendations Recommended Home Diet: no limitations Procedures Procedures Performed: repair inc umbilical hernia and left rectus muscle biopsy Pending Studies Studies pending at discharge: no Medical Emergencies . Who to Call and When: Medical Emergencies: If at any time you feel your situation is an emergency, please call 911 immediately. . Non-Emergent Contact Non-Emergency issues call your: Surgeon Call Non-Emergent contact if: you have a fever, temperature is above 101.5, your pain is not controlled, wound has increased redness, you have any medication questions . . "Provider Documentation" section prepared by Nate Wolf. .
--- NOTE | 2017-06-21 09:46 | Anesthesiology Progress Note ---
Anesthesia Post Op Note Date & Time Jun 21, 2017 at 09:46 Vital Signs Pain Intensity: 0 Vital Signs Past 12 Hours Date Time Temp Pulse Resp B/P (MAP) Pulse Ox O2 Delivery O2 Flow Rate FiO2 06/21/17 09:40 36.1 60 14 156/84 94 Oxymask 3 06/21/17 09:30 66 14 147/88 94 Oxymask 3 06/21/17 09:20 75 14 149/87 96 Oxymask 5 06/21/17 09:10 36.0 83 12 146/80 96 Oxymask 10 06/21/17 06:35 36.9 65 18 123/79 (94) 95 Room Air Notes Mental Status: alert / awake / arousable, participated in evaluation Pt Amnestic to Procedure: Yes Nausea / Vomiting: adequately controlled Pain: adequately controlled Airway Patency, RR, SpO2: stable & adequate BP & HR: stable & adequate Hydration State: stable & adequate Anesthetic Complications: no major complications apparent
[2017-06-21 09:56] VITALS: BP 126/76; PULSE 65; TEMP 36.6; O2SAT 96
--- NOTE | 2017-06-21 10:16 | OPERATIVE REPORT ---
DATE OF OPERATION: 06/21/2017 SURGEON: Rachid Virgen MD CARRY OUT CLERK: Nate Wolf PA-C PREOPERATIVE DIAGNOSIS: Incarcerated umbilical hernia. POSTOPERATIVE DIAGNOSIS: Incarcerated umbilical hernia with left rectus muscle hematoma. PROCEDURE: Repair of incarcerated umbilical hernia with Marlex mesh onlay, biopsy of the left rectus muscle. SUMMARY: The patient was brought into the operating room theater. The abdomen was prepped with Betadine scrubbing solution and properly draped. The patient had an incarcerated umbilical hernia and according to the patient, the lump was quite prominent and going over to the supraumbilical area. Therefore, we made an incision about 2 inches long above the umbilicus going towards the left of the umbilicus, deepened through subcutaneous tissue. We were met with significant amount of fatty tissue, in fact, to get to the abdominal wall, the patient had about 2.5 inches of fat. We dissected this out and then we were able to get onto the anterior abdominal wall just laterally to the midline and as we freed up the tissue, we were not sure exactly where the opening of the defect. Therefore, we scored using electrocautery on the abdominal wall fascia in the midline, the right rectus sheath into the left. On the left hand side, we could see what appeared to be a weak left rectus sheath, I was not sure exactly what the reason for this was as we were just at the left of the midline. We then elevated the subcutaneous tissue, then we were able to free the area, it was approximately 4 cm in diameter circumferentially. At this point, we had not gone down to the umbilical opening yet. What possible might was the anterior rectus sheath on the left side, it was quite thin, therefore I opened that and once we opened the sheath for approximately a centimeter and a half, there was a bloody hematoma in the sheath itself. There was no evidence of any gross abnormality from the rectus muscle itself. This was not recognized by the CAT scan that he had about 4 days ago. I was not sure if this was something related to our dissection or it was something prior to that, because the blood that seemed to be old in nature and the muscle fibers. I elected to take about a centimeter biopsy of this that we sent for permanent, again, it did not look pathological. Having said this, then I opened the linea alba above the umbilicus sufficient enough to place a finger in there into the abdomen, so I could palpate the posterior aspect of this rectus sheath making sure there was no pathology with that and that appeared to be fine. At this point, I closed the peritoneum with 3-0 chromic suture and then closed the linea alba that we had opened just about a centimeter and a half with #1 PDS [id number]. We took the dissection toward the umbilical area and we could see the incarcerated fatty tissue. The defect itself was about a centimeter or so, therefore, we were able to reduce that all intraabdominally without resecting the incarcerated fat. I closed the opening with #1 PDS. We had enough dissection on top of the previous opening of the peritoneum. I closed the rectus sheath with #1 silk suture. There was no active bleeding and then placed a sheet of Marlex about 2 x 4 circumferentially covering all the defect in the rectus and also to the right of the midline where we had opened the linea alba and well-incorporating the defect in the umbilical area. The mesh was attached to the abdominal wall fascia using 2-0 nylon suture, continuous. The area was checked for hemostasis and appeared satisfactory. We used local anesthesia around the mesh and then used topical antibiotic. 2-0 Vicryl was used to approximate the fatty tissue onto the mesh and subcutaneous 3-0 Monocryl for skin edges. Morris applied. The procedure was tolerated well by the patient. Estimated blood loss approximately 5 mL. The patient was taken to recovery room in good condition. I attest to the content of the Intraoperative Record and any orders documented therein. Any exception s are noted below.
[2017-06-21 10:26] VITALS: BP 136/78; PULSE 60; O2SAT 96
[2017-06-21 10:56] VITALS: BP 136/78; PULSE 59; O2SAT 96
== END | disposition home or self-care (01) ==
LOC: C.ACU 06:14
PROVIDERS: ATTEND Surgery
DX: K42.0 Umbilical hernia with obstruction, without gangrene (principal); Z82.49 Family history of ischemic heart disease and other diseases of the circulatory system; Z83.3 Family history of diabetes mellitus; Z80.0 Family history of malignant neoplasm of digestive organs; Z79.82 Long term (current) use of aspirin; E78.5 Hyperlipidemia, unspecified; K21.9 Gastro-esophageal reflux disease without esophagitis; E66.9 Obesity, unspecified

== ENCOUNTER 2022-04-12 11:09 | Observation (INO) ==
[2022-04-12] MEDS ORDERED: SODIUM CHLORIDE 0.9% 500 ML IV ONE (11:17)
--- NOTE | 2022-04-12 11:38 | Emergency Department Note ---
Impression & Plan Chest pain, Left arm weakness, Hypertensive urgency ED Provider Note NAME: ELISHA KENNEDY AGE: 61 SEX: M ARRIVES VIA: Walk-In INFORMANT: Patient ED PROVIDER(S): José Antonio Lyons MD CHIEF COMPLAINT: CP, LUE weakness PLAN: Disposition: Admit MEDICAL DECISION MAKING: The patient is a pleasant 61-year-old gentleman with a past medical history of hyperlipidemia who presents to the emergency department as a walk-in for evaluation of acute onset sharp/stabbing like left-sided chest pain that radiated to his left arm and jaw and abdomen at approximately 1015. The patient reports subsequently feeling heaviness, numbness tingling/weakness in his left arm. The pain lasted approximately 30 minutes and subsided however he reports feeling continued heaviness in his left arm. He reports having some upper respiratory sinus congestion over the past week but denies any significant cough/forceful coughing or vomiting. On arrival the patient is uncomfortable but in no acute distress, afebrile with blood pressure in triage initially 200/130s and vital signs otherwise stable. He appears clinically dry. On examination the patient has equal pulses in all extremities. He has equivocal objective weakness of the left upper extremity. Given the patient's neurologic symptoms stroke alert was activated. Case was [place] [facility] [place], Dr. Roque. EKG without overt acute ischemia. WBC, H/H and platelets within normal limits. Chemistry without metabolic acidosis. Electrolytes and LFTs without significant abnormality. High- sensitivity troponin 2.7, within normal limits. Lipase not elevated. COVID-19 RNA, YANY test was negative. CT head and CTA of the head and neck in addition to CT of the chest with dissection protocol were performed. CTs were unremarkable without evidence of acute pathology nor significant vascular disease. Appreciate telestroke evaluation and recommendations. At the time of telestroke evaluation the patient's symptoms were improving and he reported 80-90% strength of his left upper extremity compared to his right upper extremity and had no objective weakness/drift on examination. Given the patient's minimal symptoms at this point with reassuring evaluation otherwise upon discussion regarding option for TNK given he is within the window the patient did agree that he did not feel the benefit in this setting would outweigh the risks. Thus, TNK was deferred. Appreciate further recommendations for cardiac evaluation given the patient's symptoms as well as his elevated blood pressure. At this time stroke is considered less likely and so recommendations are to manage blood pressure as would typically be done for hypertensive urgency and permissive hypertension is not necessary. If no additional explanation is identified MRI of the brain could be considered. Case was d/[place]. Wilhelm, [facility] [place] who will evaluate the patient for admission. Triage Nursing notes reviewed and agree them. Prior/outside medical records reviewed Vital Signs: reviewed Differential diagnosis: Cardiac ischemia, aortic dissection, pulmonary embolism, pneumothorax, pneumonia, pericarditis, myocarditis, esophageal rupture, GERD, cholecystitis, pancreatitis, musculoskeletal, as well as other pathologies. ER treatment provided: See below. Diagnostics interpreted by me: ECG: Normal sinus rhythm, 72 bpm, no ectopy, no overt ST elevation or depression, QTc 42, QRS 82 Cardiac Monitoring: An order for continuous cardiac monitoring was placed and demonstrated Normal sinus rhythm, 72 bpm, no ectopy Laboratory studies: See below Imaging studies: See below Consultation(s): [facility] [place], Dr. Roque. Dr. Wilhelm [facility] [place]. HPI: The patient is a pleasant 61-year-old gentleman with a past medical history of hyperlipidemia who presents to the emergency department as a walk-in for evaluation of acute onset sharp/stabbing like left-sided chest pain that radiated to his left arm and jaw and abdomen at approximately 1015. The patient reports subsequently feeling heaviness, numbness tingling/weakness in his left arm. The pain lasted approximately 30 minutes and subsided however he reports feeling continued heaviness in his left arm. He reports having some upper respiratory sinus congestion over the past week but denies any significant cough/forceful coughing or vomiting. ROS: See above HPI for pertinent positives & negatives. A total of 10 systems reviewed and were otherwise negative. VITALS:See Below PHYSICAL EXAMINATION: GENERAL: Awake, alert, uncomfortable-appearing, in no distress HENT: Normocephalic, atraumatic. Oropharynx with dry mucous membranes and otherwise unremarkable. EYES: Normal conjunctiva. Sclera non-icteric. EOMI. No nystamgus. PEARRL. NECK: Supple. No nuchal rigidity. FROM. No JVD. RESPIRATORY: Clear to auscultation. CARDIAC: Regular rate, normal rhythm. Extremities warm and well perfused. Pulses equal. ABDOMEN: Soft, non-distended. No tenderness to palpation. No rebound or guarding. No masses. RECTAL: Deferred. MUSCULOSKELETAL: Chest examination reveals no tenderness. The back is symmetric al on inspection without obvious abnormality. There is no CVA tenderness to palpation. No joint edema. LOWER EXTREMITIES: Calves are equal size bilaterally and non-tender. No edema. No discoloration. NEURO: Speech is fluent. CN II-XII grossly intact. Steady gait. Equivocal left upper extremity weakness. SKIN: No rash or jaundice noted. José Antonio Lyons MD Past Med/Surg History Medical History (Updated 04/13/22 @ 01:43 by José Antonio Lyons MD) Diverticular disease History of anesthesia reaction VOCAL CORDS DAMAGED DURING HERNIA SURGERY Hyperlipidemia NO MEDS, DIET CONTROLLED Nausea and vomiting after administration of anesthetic agent Obesity (BMI 30-39.9) Osteoarthritis Surgical History H/O arthroscopy of left knee X3 H/O arthroscopy of right knee X3 H/O umbilical hernia repair History of colonoscopy History of repair of left rotator cuff History of repair of right rotator cuff History of tooth extraction WISDOM TEETH History of total left knee replacement (TKR) Hx of vasectomy S/P LASIK surgery of both eyes Family History Mother Family history of diabetes mellitus Grandfather Family hx of colon cancer PATERNAL Grandmother Family hx of colon cancer PATERNAL Brother Family hx of colon cancer 2 BROTHERS Family history of esophageal cancer Family/Other Family hx of colon cancer PATERNAL UNCLES Social History Smoking Status: Never smoker Second Hand Exposure: Yes (BOTH PARENTS SMOKED); Hx Alcohol Use: Yes Alcohol type: beer and wine Hx Substance Use: No Preferred Language: Northern Irish Communication Ability: Effective Jig Mill Operator Required: No Beliefs That Will Affect Care: Hindu Hindu Beliefs: LUTHERAN Current Living Situation: Spouse and Family Current Living Situation Comment: LIVES WITH AND SON Feels Safe at Home: Yes Assistive Devices: Glasses Allergies Allergies Allergy/AdvReac Type Severity Reaction Status Date / Time No Known Allergies Allergy Verified 07/02/19 18:43 Home Meds Home Medications Medication Instructions Recorded Confirmed ascorbic acid (vitamin C) 500 mg 500 mg PO QAM 11/27/17 04/12/22 tablet (Vitamin C) cholecalciferol (vitamin D3) 25 1,000 unit PO QAM 11/27/17 04/12/22 mcg (1,000 unit) capsule (Vitamin D3) garlic 1,000 mg capsule 1,000 mg PO QAM 11/27/17 04/12/22 ibuprofen 200 mg tablet 200 - 400 mg PO QID PRN Pain 11/27/17 04/12/22 multivitamin 1 tab PO QAM 11/27/17 04/12/22 turmeric 400 mg capsule 1 tab PO QAM 11/27/17 04/12/22 cinnamon bark 500 mg capsule 1,000 mg PO DAILY 07/02/19 04/12/22 (Cinnamon) glucosamine sulf dipot 2 cap PO DAILY 07/02/19 04/12/22 chlr,msm,chond 550 mg-C 30 mg-gala 1 mg capsule (Glucosamine Chondroitin) rosuvastatin 10 mg tablet (Crestor) 10 mg PO DAILY 07/02/19 04/12/22 Pomegranate 04/12/22 Results & Data (ED) Vital Signs Vital Signs - 24 hr 04/12/22 11:12 04/12/22 11:38 04/12/22 12:03 Temperature 36.8 C Temperature Source Temporal Artery Scan Pulse Rate 68 65 Pulse Rate from SpO2 Sensor Pulse Rhythm Regular Respiratory Rate 18 18 Blood Pressure 200/134 H Blood Pressure Mean 156 Pulse Oximetry 97 98 97 Oxygen Delivery Method Room Air Room Air Room Air Sepsis Recent Fever Within 48 Hours No Sepsis New/Unexplained Change in Mental Status No Sepsis Action Taken by Nursing No Action Required 04/12/22 12:27 04/12/22 12:54 04/12/22 13:05 Temperature Temperature Source Pulse Rate 62 60 65 Pulse Rate from SpO2 Sensor 62 Pulse Rhythm Respiratory Rate 12 18 15 Blood Pressure 125/86 176/97 H Blood Pressure Mean 99 123 Pulse Oximetry 98 95 95 Oxygen Delivery Method Room Air Room Air Sepsis Recent Fever Within 48 Hours Sepsis New/Unexplained Change in Mental Status Sepsis Action Taken by Nursing 04/12/22 13:10 04/12/22 13:20 04/12/22 13:30 Temperature Temperature Source Pulse Rate 58 L 57 L Pulse Rate from SpO2 Sensor 58 L 58 L Pulse Rhythm Respiratory Rate 9 L 9 L Blood Pressure 155/98 H Blood Pressure Mean 117 Pulse Oximetry 94 96 Oxygen Delivery Method Sepsis Recent Fever Within 48 Hours Sepsis New/Unexplained Change in Mental Status Sepsis Action Taken by Nursing 04/12/22 13:30 04/12/22 13:40 Temperature Temperature Source Pulse Rate 56 L 57 L Pulse Rate from SpO2 Sensor 56 L 57 L Pulse Rhythm Respiratory Rate 12 12 Blood Pressure Blood Pressure Mean Pulse Oximetry 96 96 Oxygen Delivery Method Sepsis Recent Fever Within 48 Hours Sepsis New/Unexplained Change in Mental Status Sepsis Action Taken by Nursing Laboratory Data Attestation: I reviewed the patient's lab results. 04/12/22 11:28 04/12/22 11:28 Lab Results 04/12/22 04/12/22 04/12/22 Range/Units 11:28 11:28 11:28 WBC 4.81 (4.8-10.8) K/ul RBC 5.12 (4.70-6.10) M/uL Hgb 15.6 (14.0-18.0) g/dl POC Hgb (14.0-18.0) g/dl Hct 43.9 (42.0-52.0) % POC Hct (42-52) % MCV 85.7 (80.0-100.0) fL MCH 30.5 (25.0-34.0) pg MCHC 35.5 (32.0-36.0) g/dL RDW Std Deviation 38.7 (36.4-46.3) fL RDW Coeff of Anna 12.3 (11.5-14.5) % Plt Count 171 (130-400) K/uL MPV 9.5 (9.4-12.4) fL Immature Gran % (Auto) 0.2 % Neut % (Auto) 56.0 % Lymph % (Auto) 32.6 % [place] % (Auto) 10.2 % Eos % (Auto) 0.4 % Baso % (Auto) 0.6 % Neut # (Auto) 2.69 (1.40-6.50) K/uL Lymph # (Auto) 1.57 (1.2-3.4) K/uL [place] # (Auto) 0.49 (0.11-0.59) K/uL Eos # (Auto) 0.02 (0-0.50) K/uL Baso # (Auto) 0.03 (0-0.2) K/uL Immature Gran # (Auto) 0.01 (0.01-0.20) K/uL PT 10.6 (9.0-12.0) Seconds INR 1.0 (0.9-1.1) APTT 26.2 (21.0-31.0) Seconds PTT Ratio 1.0 POC Sodium (135-144) mmol/L Sodium 137 (136-145) mmol/L POC Potassium (3.3-5.0) mmol/L Potassium 4.1 (3.5-5.1) mmol/L POC Chloride (101-112) mmol/L Chloride 106 (98-107) mmol/L Carbon Dioxide 26 (21-32) mmol/L POC Total CO2 (24-31) mmol/L Anion Gap 5 (3-11) POC Anion Gap (16-25) mmol/L POC BUN (7-18) mg/dl BUN 19 (6-23) mg/dl Creatinine 0.94 (0.6-1.4) mg/dl POC Creatinine (0.6-1.3) mg/dl Est Cr Clr Drug Dosing 97.1 ml/min Est GFR ( Amer) 101.0 ml/min Est GFR (Non-Af Amer) 87.2 ml/min BUN/Creatinine Ratio 20.2 H (10-20) Glucose 97 (70-99(Fasting)) mg/dl POC Glucose (70-99) mg/dl POC Glucose (other) (70-99) mg/dl Calcium 10.3 H (8.5-10.1) mg/dl POC Ioniz Calcium Andrzej (1.12-1.32) mmol/l Phosphorus 3.4 (2.5-4.9) mg/dl Magnesium 2.2 (1.7-2.4) mg/dl Total Bilirubin 1.3 H (0.2-1.0) mg/dl AST 18 (13-39) U/L ALT 23 (7-52) U/L Alkaline Phosphatase 60 (34-104) U/L Troponin I High Sens 2.7 (0-20) pg/ml Total Protein 7.9 (6.0-8.3) gm/dl Albumin 4.6 (3.4-5.0) gm/dl Globulin 3.3 (2.5-4.0) gm/dl Albumin/Globulin Ratio 1.4 (0.9-2) Lipase 28 (11-82) U/L SARS-CoV-2, RNA, NAAT (NEGATIVE) 04/12/22 04/12/22 04/12/22 Range/Units 11:30 11:34 11:50 WBC (4.8-10.8) K/ul RBC (4.70-6.10) M/uL Hgb (14.0-18.0) g/dl POC Hgb 15.0 (14.0-18.0) g/dl Hct (42.0-52.0) % POC Hct 44 (42-52) % MCV (80.0-100.0) fL MCH (25.0-34.0) pg MCHC (32.0-36.0) g/dL RDW Std Deviation (36.4-46.3) fL RDW Coeff of Anna (11.5-14.5) % Plt Count (130-400) K/uL MPV (9.4-12.4) fL Immature Gran % (Auto) % Neut % (Auto) % Lymph % (Auto) % [place] % (Auto) % Eos % (Auto) % Baso % (Auto) % Neut # (Auto) (1.40-6.50) K/uL Lymph # (Auto) (1.2-3.4) K/uL [place] # (Auto) (0.11-0.59) K/uL Eos # (Auto) (0-0.50) K/uL Baso # (Auto) (0-0.2) K/uL Immature Gran # (Auto) (0.01-0.20) K/uL PT (9.0-12.0) Seconds INR (0.9-1.1) APTT (21.0-31.0) Seconds PTT Ratio POC Sodium 139 (135-144) mmol/L Sodium (136-145) mmol/L POC Potassium 4.1 (3.3-5.0) mmol/L Potassium (3.5-5.1) mmol/L POC Chloride 105 (101-112) mmol/L Chloride (98-107) mmol/L Carbon Dioxide (21-32) mmol/L POC Total CO2 24 (24-31) mmol/L Anion Gap (3-11) POC Anion Gap 14.0 L (16-25) mmol/L POC BUN 16 (7-18) mg/dl BUN (6-23) mg/dl Creatinine (0.6-1.4) mg/dl POC Creatinine 0.9 (0.6-1.3) mg/dl Est Cr Clr Drug Dosing ml/min Est GFR ( Amer) ml/min Est GFR (Non-Af Amer) ml/min BUN/Creatinine Ratio (10-20) Glucose (70-99(Fasting)) mg/dl POC Glucose 95 (70-99) mg/dl POC Glucose (other) 95 (70-99) mg/dl Calcium (8.5-10.1) mg/dl POC Ioniz Calcium Andrzej 1.18 (1.12-1.32) mmol/l Phosphorus (2.5-4.9) mg/dl Magnesium (1.7-2.4) mg/dl Total Bilirubin (0.2-1.0) mg/dl AST (13-39) U/L ALT (7-52) U/L Alkaline Phosphatase (34-104) U/L Troponin I High Sens (0-20) pg/ml Total Protein (6.0-8.3) gm/dl Albumin (3.4-5.0) gm/dl Globulin (2.5-4.0) gm/dl Albumin/Globulin Ratio (0.9-2) Lipase (11-82) U/L SARS-CoV-2, RNA, NAAT NEGATIVE (NEGATIVE) 04/12/22 Range/Units 14:13 WBC (4.8-10.8) K/ul RBC (4.70-6.10) M/uL Hgb (14.0-18.0) g/dl POC Hgb (14.0-18.0) g/dl Hct (42.0-52.0) % POC Hct (42-52) % MCV (80.0-100.0) fL MCH (25.0-34.0) pg MCHC (32.0-36.0) g/dL RDW Std Deviation (36.4-46.3) fL RDW Coeff of Anna (11.5-14.5) % Plt Count (130-400) K/uL MPV (9.4-12.4) fL Immature Gran % (Auto) % Neut % (Auto) % Lymph % (Auto) % [place] % (Auto) % Eos % (Auto) % Baso % (Auto) % Neut # (Auto) (1.40-6.50) K/uL Lymph # (Auto) (1.2-3.4) K/uL [place] # (Auto) (0.11-0.59) K/uL Eos # (Auto) (0-0.50) K/uL Baso # (Auto) (0-0.2) K/uL Immature Gran # (Auto) (0.01-0.20) K/uL PT (9.0-12.0) Seconds INR (0.9-1.1) APTT (21.0-31.0) Seconds PTT Ratio POC Sodium (135-144) mmol/L Sodium (136-145) mmol/L POC Potassium (3.3-5.0) mmol/L Potassium (3.5-5.1) mmol/L POC Chloride (101-112) mmol/L Chloride (98-107) mmol/L Carbon Dioxide (21-32) mmol/L POC Total CO2 (24-31) mmol/L Anion Gap (3-11) POC Anion Gap (16-25) mmol/L POC BUN (7-18) mg/dl BUN (6-23) mg/dl Creatinine (0.6-1.4) mg/dl POC Creatinine (0.6-1.3) mg/dl Est Cr Clr Drug Dosing ml/min Est GFR ( Amer) ml/min Est GFR (Non-Af Amer) ml/min BUN/Creatinine Ratio (10-20) Glucose (70-99(Fasting)) mg/dl POC Glucose (70-99) mg/dl POC Glucose (other) (70-99) mg/dl Calcium (8.5-10.1) mg/dl POC Ioniz Calcium Andrzej (1.12-1.32) mmol/l Phosphorus (2.5-4.9) mg/dl Magnesium (1.7-2.4) mg/dl Total Bilirubin (0.2-1.0) mg/dl AST (13-39) U/L ALT (7-52) U/L Alkaline Phosphatase (34-104) U/L Troponin I High Sens 3.7 (0-20) pg/ml Total Protein (6.0-8.3) gm/dl Albumin (3.4-5.0) gm/dl Globulin (2.5-4.0) gm/dl Albumin/Globulin Ratio (0.9-2) Lipase (11-82) U/L SARS-CoV-2, RNA, NAAT (NEGATIVE) Administered Medications Diphenhydramine HCl (Diphenhydramine Capsule 25 Mg Cap) 25 mg PO HS PRN PRN Reason: Insomnia Stop: 05/12/22 18:16 Last Admin: 04/12/22 22:43 Dose: 25 mg Documented By: MARIA LUZ Discontinued Medications Aspirin (Aspirin Chew 324 Mg) 324 mg PO NOW STA Stop: 04/12/22 12:36 Last Admin: 04/12/22 12:52 Dose: 324 mg Documented By: MARIA LUZ(2) Sodium Chloride (Nss) 500 mls @ 999 mls/hr IV .Q31M ONE Stop: 04/12/22 11:47 Last Infusion: 04/12/22 12:21 Dose: 0 mls/hr Documented By: MARIA LUZ(2) Admin: 04/12/22 11:53 Dose: 999 mls/hr Documented By: MARIA LUZ(2) Ioversol (Optiray 350 100ml) 112 ml IV ONCE ONE Stop: 04/12/22 11:49 Last Admin: 04/12/22 11:39 Dose: 112 ml Documented By: EZRA Imaging Data Radiologist's Impression: Chest CTA 04/12/22 11:29 CT angio chest dissec wo/w con HISTORY: 61 years-old Male with stabbing CP, LUE weakness. Acute chest pain with left upper extremity weakness TECHNIQUE: Multiple CTA images of the chest were obtained after the intravenous administration of 112 ml Optiray. Coronal and sagittal MIPS were obtained from the axial data set and were submitted for review. Noncontrast chest CT also obtained. All measurements were obtained according to NASCET criteria. A dose lowering technique was utilized adhering to the principles of ALARA. COMPARISON: Chest radiograph of same day FINDINGS: CTA: Moderate cardiomegaly without pericardial effusion. Moderate coronary artery calcifications. No thoracic aortic aneurysm or dissection. The opacified pulmonary artery appears unremarkable. CT CHEST: Unremarkable thyroid. No lymphadenopathy. No pneumothorax, pleural effusion, airspace consolidation, overt pulmonary edema, suspicious pulmonary nodule or mass. Central airways are patent. Mild nonspecific distal esophageal wall thickening with nonenlarged periesophageal lymph nodes. Mild hepatic steatosis. No hepatic mass identified. Unremarkable soft tissues. No acute fracture identified. Prior left-sided rotator cuff repair. IMPRESSION: 1. No thoracic aortic aneurysm or dissection. 2. Cardiomegaly with moderate coronary artery calcifications. 3. Mild hepatic steatosis. ACT 112: Negative or not required by law. The above report was generated using voice recognition software. It may contain grammatical, syntax or spelling errors. Electronically signed by: Hipolito Ventura M.D. 04/12/2022 12:[address] 04/12/22 11:29 CT OF THE HEAD WITHOUT CONTRAST CLINICAL HISTORY: neuro deficit, acute stroke suspected. Left-sided weakness. COMPARISON STUDY: MRI of the brain March 18, 2021. CT DOSE: 3066.13 mGy.cm TECHNIQUE: Helical axial images of the head were obtained without IV contrast. Automated exposure control was utilized for the study. A dose lowering technique was utilized adhering to the principles of ALARA. FINDINGS: No acute intracranial hemorrhage, midline shift or mass effect is present. The ventricular system is unremarkable. The basal cisterns are patent. No extra-axial collections are present. There are no findings to suggest acute dural sinus thrombosis or acute territorial infarct. No significant calvarial abnormalities are present. Visualized portions of the sinuses and mastoid air cells are clear. IMPRESSION: No acute intracranial findings. ACT 112: Negative or not required by law. Electronically signed by: Cali Whitaker M.D. 04/12/2022 12:05 PM Head CTA 04/12/22 11:29 CTA ANGIOGRAPHY OF THE HEAD CLINICAL HISTORY: neuro deficit, acute stroke suspected. Left-sided weakness. COMPARISON STUDY: MRI of the brain March 18, 2021. TECHNIQUE: Helical axial images of the head were obtained following uneventful intravenous administration of 112 cc of Optiray. Sagittal and coronal reconstructions were viewed as well as maximal intensity projections on an independent 3-D workstation. Automated exposure control was utilized for the study. A dose lowering technique was utilized adhering to the principles of ALARA. FINDINGS: Brain volume is normal. Ventricular system is normal. Basal cisterns are patent. No extra-axial collections are present. No acute intracranial hemorrhage was identified on the head CT which will be reported separately. Mucous retention cyst within the right maxillary sinus is noted. The bilateral M1, M2, A1 and A2 segments are patent. There is mild plaque within the bilateral cavernous carotids without stenosis. persistence of the bilateral posterior to arteries is noted. As a result, the basilar artery and intracranial portions of the vertebral arteries are somewhat diminutive. Posterior cerebral arteries are patent. Major dural sinuses are patent. No intracranial aneurysm. IMPRESSION: No central vessel occlusion. No intracranial aneurysm. ACT 112: Negative or not required by law. Electronically signed by: Cali Whitaker M.D. 04/12/2022 12:10 PM Neck CTA 04/12/22 11:29 CT angio neck with con CLINICAL HISTORY: 61 years-old Male with neuro deficit, acute stroke suspected. Acute strokelike symptoms COMPARISON STUDY: CTA had of same day TECHNIQUE: Following the IV administration of 112 mL of Optiray, CT angiogram of the neck was performed from the aortic arch to the skull base. Images are reviewed in the axial, sagittal, and coronal planes. 3-D MIPS images are created and assessed. IV contrast was administered without complication. All measur ements were calculated based on NASCET criteria. A dose lowering technique was utilized adhering to the principles of ALARA. FINDINGS: Three-vessel morphology of the thoracic aortic arch. Patency of the innominate and imaged subclavian arteries. The common and internal carotid arteries are widely patent. Dominant right vertebral artery. The bilateral vertebral arteries are patent. origin of the posterior cerebral arteries. No aneurysm, d issection, high-grade stenosis or arterial occlusion identified. No pneumothorax. Unremarkable soft tissues. Mild polypoid mucosal thickening of the maxillary sinuses, right greater than left. Degenerative changes of the cervical spine without acute fracture identified. IMPRESSION:Unremarkable CTA of the neck. ACT 112: Negative or not required by law. The above report was generated using voice recognition software. It may contain grammatical, syntax or spelling errors. Electronically signed by: Hipolito Ventura M.D. 04/12/2022 12:23 PM Discharge Plan Visit Data Chief Complaint: Cardiac Assessment Stated Complaint: CHEST PAIN, L ARM WEAK/NUMB, PAIN IN JAW ED Provider: José Antonio Lyons Discharge Problem: Chest pain, Left arm weakness, Hypertensive urgency Patient Disposition: Admitted As Inpatient Discharge Instructions Interventions: ED Discharge Assessment Last Done: 04/12/22 18:24
[2022-04-12 11:40] LABS: Basophils # (auto) 0.03 K/uL (0-0.2); Basophils % (auto) 0.6 %; Eosinophils # (auto) 0.02 K/uL (0-0.50); Eosinophils % (auto) 0.4 %; Hematocrit (blood only) 43.9 % (42.0-52.0); Hemoglobin 15.6 g/dl (14.0-18.0); Immature Granulocytes # (auto) 0.01 K/uL (0.01-0.20); Immature Granulocytes % (auto) 0.2 %; Lymphocytes # (auto) 1.57 K/uL (1.2-3.4); Lymphocytes % (auto) 32.6 %; Mean Corpuscular Hemoglobin 30.5 pg (25.0-34.0); Mean Corpuscular Hgb Conc 35.5 g/dL (32.0-36.0); Mean Corpuscular Volume 85.7 fL (80.0-100.0); Mean Platelet Volume 9.5 fL (9.4-12.4); Monocytes # (auto) 0.49 K/uL (0.11-0.59); Monocytes % (auto) 10.2 %; Neutrophils # (auto) 2.69 K/uL (1.40-6.50); Platelet Count 171 K/uL (130-400); RDW Coefficient of Variation 12.3 % (11.5-14.5); RDW Standard Deviation 38.7 fL (36.4-46.3); Red Blood Count 5.12 M/uL (4.70-6.10); White Blood Count 4.81 K/ul (4.8-10.8)
--- NOTE | 2022-04-12 11:41 | Electrocardiogram Report ---
Test Reason : Blood Pressure : / mmHG Vent. Rate : 072 BPM Atrial Rate : 072 BPM P-R Int : 174 ms QRS Dur : 082 ms QT Int : 386 ms P-R-T Axes : 055 032 052 degrees QTc Int : 422 ms Normal sinus rhythm Poor R wave progression, consider anterior [place] vs. lead placement vs. LVH Abnormal ECG When compared with ECG of 02-JUL-2019 17:41, No significant change Confirmed by Conor Conroy ([id number]) on 04/12/2022 11:40:46 AM Referred By: Confirmed By:Conor Conroy
[2022-04-12 11:47] LABS: iSTAT Creatinine 0.9 mg/dl (0.6-1.3); iSTAT Ionized Calcium 1.18 mmol/l (1.12-1.32); iSTAT Potassium 4.1 mmol/L (3.3-5.0)
[2022-04-12] MEDS ORDERED: OPTIRAY 350 100ml IV ONE (11:48)
[2022-04-12 11:59] LABS: Partial Thromboplastin Time 26.2 Seconds (21.0-31.0); Prothrombin Time 10.6 Seconds (9.0-12.0)
--- NOTE | 2022-04-12 12:07 | CT Scan Report ---
CT OF THE HEAD WITHOUT CONTRAST CLINICAL HISTORY: neuro deficit, acute stroke suspected. Left-sided weakness. COMPARISON STUDY: MRI of the brain March 18, 2021. CT DOSE: 3066.13 mGy.cm TECHNIQUE: Helical axial images of the head were obtained without IV contrast. Automated exposure con trol was utilized for the study. A dose lowering technique was utilized adhering to the principles o f ALARA. FINDINGS: No acute intracranial hemorrhage, midline shift or mass effect is present. The ventricular system is unremarkable. The basal cisterns are patent. No extra-axial collections are present. There are no findings to suggest acute dural sinus thrombosis or acute territorial infarct. No significant calvarial abnormalities are present. Visualized portions of the sinuses and mastoid air cells are eula ar. IMPRESSION: No acute intracranial findings. ACT 112: Negative or not required by law. Electronically signed by: Cali Whitaker M.D. 04/12/2022 12:05 PM
--- NOTE | 2022-04-12 12:11 | CT Scan Report ---
CTA ANGIOGRAPHY OF THE HEAD CLINICAL HISTORY: neuro deficit, acute stroke suspected. Left-sided weakness. COMPARISON STUDY: MRI of the brain March 18, 2021. TECHNIQUE: Helical axial images of the head were obtained following uneventful intravenous administr ation of 112 cc of Optiray. Sagittal and coronal reconstructions were viewed as well as maximal inten sity projections on an independent 3-D workstation. Automated exposure control was utilized for the study. A dose lowering technique was utilized adhering to the principles of ALARA. FINDINGS: Brain volume is normal. Ventricular system is normal. Basal cisterns are patent. No extra-a xial collections are present. No acute intracranial hemorrhage was identified on the head CT which wi ll be reported separately. Mucous retention cyst within the right maxillary sinus is noted. The bilat eral M1, M2, A1 and A2 segments are patent. There is mild plaque within the bilateral cavernous carot ids without stenosis. persistence of the bilateral posterior to arteries is noted. As a result, the basilar artery and intracranial portions of the vertebral arteries are somewhat diminutive. Post erior cerebral arteries are patent. Major dural sinuses are patent. No intracranial aneurysm. IMPRESSION: No central vessel occlusion. No intracranial aneurysm. ACT 112: Negative or not required by law. Electronically signed by: Cali Whitaker M.D. 04/12/2022 12:10 PM
[2022-04-12 12:12] LABS: Albumin Globulin Ratio 1.4 (0.9-2); Albumin Level 4.6 gm/dl (3.4-5.0); BUN Creatinine Ratio 20.2 (10-20); Bilirubin,Total 1.3 mg/dl (0.2-1.0); Calcium 10.3 mg/dl (8.5-10.1); Creatinine Clr Calc Pharmacy 97.1 ml/min; Est GFR (Non-African American) 87.2 ml/min; Globulin 3.3 gm/dl (2.5-4.0); Magnesium 2.2 mg/dl (1.7-2.4); Phosphorus 3.4 mg/dl (2.5-4.9); Potassium 4.1 mmol/L (3.5-5.1); Total Protein 7.9 gm/dl (6.0-8.3); Troponin I High Sensitivity 2.7 pg/ml (0-20)
--- NOTE | 2022-04-12 12:24 | CT Scan Report ---
CT angio neck with con CLINICAL HISTORY: 61 years-old Male with neuro deficit, acute stroke suspected. Acute strokelike s ymptoms COMPARISON STUDY: CTA had of same day TECHNIQUE: Following the IV administration of 112 mL of Optiray, CT angiogram of the neck was perform ed from the aortic arch to the skull base. Images are reviewed in the axial, sagittal, and coronal pl anes. 3-D MIPS images are created and assessed. IV contrast was administered without complication. Al l measurements were calculated based on NASCET criteria. A dose lowering technique was utilized adhe ring to the principles of ALARA. FINDINGS: Three-vessel morphology of the thoracic aortic arch. Patency of the innominate and imaged subclavian arteries. The common and internal carotid arteries are widely patent. Dominant right vertebral artery . The bilateral vertebral arteries are patent. origin of the posterior cerebral arteries. No an eurysm, dissection, high-grade stenosis or arterial occlusion identified. No pneumothorax. Unremarkable soft tissues. Mild polypoid mucosal thickening of the maxillary sinuses , right greater than left. Degenerative changes of the cervical spine without acute fracture identifi ed. IMPRESSION:Unremarkable CTA of the neck. ACT 112: Negative or not required by law. The above report was generated using voice recognition software. It may contain grammatical, syntax o r spelling errors. Electronically signed by: Hipolito Ventura M.D. 04/12/2022 12:23 PM
--- NOTE | 2022-04-12 12:32 | CT Scan Report ---
CT angio chest dissec wo/w con HISTORY: 61 years-old Male with stabbing CP, LUE weakness. Acute chest pain with left upper extremi ty weakness TECHNIQUE: Multiple CTA images of the chest were obtained after the intravenous administration of 112 ml Optiray. Coronal and sagittal MIPS were obtained from the axial data set and were submitted for review. Noncontrast chest CT also obtained. All measurements were obtained according to NASCET criter ia. A dose lowering technique was utilized adhering to the principles of ALARA. COMPARISON: Chest radiograph of same day FINDINGS: CTA: Moderate cardiomegaly without pericardial effusion. Moderate coronary artery calcifications. No thora cic aortic aneurysm or dissection. The opacified pulmonary artery appears unremarkable. CT CHEST: Unremarkable thyroid. No lymphadenopathy. No pneumothorax, pleural effusion, airspace consolidation, overt pulmonary edema, suspicious pulmonary nodule or mass. Central airways are patent. Mild nonspecific distal esophageal wall thickening with nonenlarged periesophageal lymph nodes. Mild hepatic steatosis. No hepatic mass identified. Unremarkable soft tissues. No acute fracture identifie d. Prior left-sided rotator cuff repair. IMPRESSION: 1. No thoracic aortic aneurysm or dissection. 2. Cardiomegaly with moderate coronary artery calcifications. 3. Mild hepatic steatosis. ACT 112: Negative or not required by law. The above report was generated using voice recognition software. It may contain grammatical, syntax o r spelling errors. Electronically signed by: Hipolito Ventura M.D. 04/12/2022 12:31 PM
[2022-04-12] MEDS ORDERED: ASPIRIN CHEW 324 MG PO STA (12:35)
--- NOTE | 2022-04-12 12:48 | XRay Report ---
XR chest 1V portable HISTORY: Chest pain, nonspecific COMPARISON: Chest 07/02/2019. FINDINGS: The cardiac silhouette remains borderline enlarged. No pleural effusions. No pneumothorax. The lungs are clear. No acute rib fractures. IMPRESSION: No significant change compared to the prior study. No acute process. ACT 112: Negative or not required by law. Electronically signed by: Julio Leong M.D. 04/12/2022 12:46 PM
--- NOTE | 2022-04-12 12:55 | History & Physical Report ---
Date of Service April 12, 2022 Assessment & Plan (1) Chest pain: Plan: Rule out NH 10:15 am pain for 25 minutes, non-exertional although radiating to jaw and arm are concerning symptoms with moderate atherosclerotic disease on CT Serial troponins, if negative stress echo in AM Lipid profile and HbA1c with a.m. labs (2) Left arm weakness: Plan: Given significant pronator drift noted by ER physician will complete stroke workup with brain MRI and consult neurology given no good alternative explanation of his sudden weakness but low suspicion this is stroke related and may just be related to his chest pain (3) Hyperlipidemia: Plan: Continue rosuvastatin 10 mg p.o. daily Plan VTE prophylaxis - low risk Diet - heart healthy, n.p.o. at midnight Disposition - observation status to [facility] with telemetry Admission and Anticipated Discharge Date Admission Date: April 12, 2022 History of Present Illness Chief Complaint: Chest pain Primary Care Provider: Jovi Bacon MD Adam Olmedo is a 61 year old male who presents to the ER with chest pain rad iating to his jaw and left arm. Left-sided chest pain started at 10:15am lasting for 20-25 minutes, occurred while sitting in a nonstressful situation, radiating down to his epigastric area of his abdomen, severity 9/10, slowly resolved without intervention while walking around, no worse on exertion or drinking coffee. Nothing he can think of made it better or worse. During this episode of chest tightness he started to feel his left arm becoming numb, no pain but with some weakness. His left hand is felt cold which lasted till 1 PM in the emergency room. He also noticed the chest pain radiating to his jaw which started towards the end of him having chest pain and lasted slightly longer than the chest pain itself. He denies any nausea, shortness of breath, diaphoresis. He is a non-smoker, no diabetes. He has hypercholesterolemia which is treated with rosuvastatin. No previous heart attacks or strokes. Initial high- sensitivity troponin in the emergency room was normal. Due to left arm weakness and numbness noted in the emergency room a telestroke call was initiated. TNK was not recommended. He reports his left arm weakness and numbness is now completely resolved. Allergies Allergy/AdvReac Type Severity Reaction Status Date / Time No Known Allergies Allergy Verified 07/02/19 18:43 Home Medications Medication Instructions Recorded Confirmed Type ascorbic acid (vitamin C) 500 mg 500 mg PO QAM 11/27/17 04/12/22 History tablet (Vitamin C) cholecalciferol (vitamin D3) 25 1,000 unit PO QAM 11/27/17 04/12/22 History mcg (1,000 unit) capsule (Vitamin D3) garlic 1,000 mg capsule 1,000 mg PO QAM 11/27/17 04/12/22 History ibuprofen 200 mg tablet 200 - 400 mg PO QID PRN Pain 11/27/17 04/12/22 History multivitamin 1 tab PO QAM 11/27/17 04/12/22 History turmeric 400 mg capsule 1 tab PO QAM 11/27/17 04/12/22 History cinnamon bark 500 mg capsule 1,000 mg PO DAILY 07/02/19 04/12/22 History (Cinnamon) glucosamine sulf dipot 2 cap PO DAILY 07/02/19 04/12/22 History chlr,msm,chond 550 mg-C 30 mg-gala 1 mg capsule (Glucosamine Chondroitin) rosuvastatin 10 mg tablet (Crestor) 10 mg PO DAILY 07/02/19 04/12/22 History Pomegranate 04/12/22 History Past Med/Surg History Medical History (Updated 04/13/22 @ 03:34 by Martin Wilhelm MD) Diverticular disease History of anesthesia reaction VOCAL CORDS DAMAGED DURING HERNIA SURGERY Hyperlipidemia Nausea and vomiting after administration of anesthetic agent Obesity (BMI 30-39.9) Osteoarthritis Surgical History H/O arthroscopy of left knee X3 H/O arthroscopy of right knee X3 H/O umbilical hernia repair History of colonoscopy History of repair of left rotator cuff History of repair of right rotator cuff History of tooth extraction WISDOM TEETH History of total left knee replacement (TKR) Hx of vasectomy S/P LASIK surgery of both eyes Family History Mother Family history of diabetes mellitus Grandfather Family hx of colon cancer PATERNAL Grandmother Family hx of colon cancer PATERNAL Brother Family hx of colon cancer 2 BROTHERS Family history of esophageal cancer Family/Other Family hx of colon cancer PATERNAL UNCLES Social History Smoking Status: Never smoker Second Hand Exposure: Yes (BOTH PARENTS SMOKED); Hx Alcohol Use: Yes Alcohol type: beer and wine Hx Substance Use: No Preferred Language: Peruvian Communication Ability: Effective District Manager Primary Care Sales Required: No Beliefs That Will Affect Care: L[employer] Day L[employer] Day Beliefs: JAINISM Current Living Situation: Spouse and Family Current Living Situation Comment: LIVES WITH AND SON Feels Safe at Home: Yes Assistive Devices: Glasses Review of Systems Review of Systems: All systems reviewed & are unremarkable except as noted in HPI & below Physical Exam Constitutional: WD/WN, vitals as above Eyes: PERRL, conjunctivae normal, anicteric sclerae ENMT: external ear and nose normal, oropharynx normal Respiratory: normal respiratory effort, lungs clear to auscultation Cardiovascular: RRR, no murmur, no edema Gastrointestinal (Abdomen): normal bowel sounds, soft, nontender, no hepatosplenomegaly Musculoskeletal: no cyanosis or clubbing, extremities motor strength 5/5 Skin: no rashes, warm and dry Neurologic: moves all extremities and awake; no focal motor deficits and not confused Speech / Cognition: normal speech Motor/Sensory: no tremor, no pronator drift and no sensory deficit Cranial Nerves: sense of smell intact, PERRL, normal accommodation, EOM intact bilaterally, normal facial strength, tongue midline, able to rotate head bilaterally, able to elevate shoulders bilaterally, no nystagmus and symmetric palate elevation Psychiatric: A+Ox3, euthymic affect Results & Data Results & Data ([facility]) Vital Signs (Past 12 Hours) Vital Signs Temp Pulse Resp BP Pulse Ox O2 Del Method 04/12/22 12:27 62 12 125/86 98 Room Air 04/12/22 12:03 97 Room Air 04/12/22 11:38 65 18 98 Room Air 04/12/22 11:12 36.8 C 68 18 200/134 H 97 Room Air Laboratory Results Abnormal lab results 04/12/22 04/12/22 Range/Units 11:28 11:34 POC Anion Gap 14.0 L (16-25) mmol/L BUN/Creatinine Ratio 20.2 H (10-20) Calcium 10.3 H (8.5-10.1) mg/dl Total Bilirubin 1.3 H (0.2-1.0) mg/dl Diagnostic Findings XR chest 1V portable HISTORY: Chest pain, nonspecific COMPARISON: Chest 07/02/2019. FINDINGS: The cardiac silhouette remains borderline enlarged. No pleural effusions. No pneumothorax. The lungs are clear. No acute rib fractures. IMPRESSION: No significant change compared to the prior study. No acute process. CT angio chest dissec wo/w con HISTORY: 61 years-old Male with stabbing CP, LUE weakness. Acute chest pain with left upper extremity weakness TECHNIQUE: Multiple CTA images of the chest were obtained after the intravenous administration of 112 ml Optiray. Coronal and sagittal MIPS were obtained from the axial data set and were submitted for review. Noncontrast chest CT also obtained. All measurements were obtained according to NASCET criteria. A dose lowering technique was utilized adhering to the principles of ALARA. COMPARISON: Chest radiograph of same day FINDINGS: CTA: Moderate cardiomegaly without pericardial effusion. Moderate coronary artery calcifications. No thoracic aortic aneurysm or dissection. The opacified pulmonary artery appears unremarkable. CT CHEST: Unremarkable thyroid. No lymphadenopathy. No pneumothorax, pleural effusion, airspace consolidation, overt pulmonary edema, suspicious pulmonary nodule or mass. Central airways are patent. Mild nonspecific distal esophageal wall thickening with nonenlarged periesophageal lymph nodes. Mild hepatic steatosis. No hepatic mass identified. Unremarkable soft tissues. No acute fracture identified. Prior left-sided rotator cuff repair. IMPRESSION: 1. No thoracic aortic aneurysm or dissection. 2. Cardiomegaly with moderate coronary artery calcifications. 3. Mild hepatic steatosis. CT OF THE HEAD WITHOUT CONTRAST CLINICAL HISTORY: neuro deficit, acute stroke suspected. Left-sided weakness. COMPARISON STUDY: MRI of the brain March 18, 2021. CT DOSE: 3066.13 mGy.cm TECHNIQUE: Helical axial images of the head were obtained without IV contrast. Automated exposure control was utilized for the study. A dose lowering technique was utilized adhering to the principles of ALARA. FINDINGS: No acute intracranial hemorrhage, midline shift or mass effect is present. The ventricular system is unremarkable. The basal cisterns are patent. No extra-axial collections are present. There are no findings to suggest acute dural sinus thrombosis or acute territorial infarct. No significant calvarial abnormalities are present. Visualized portions of the sinuses and mastoid air cells are clear. IMPRESSION: No acute intracranial findings. CTA ANGIOGRAPHY OF THE HEAD CLINICAL HISTORY: neuro deficit, acute stroke suspected. Left-sided weakness. COMPARISON STUDY: MRI of the brain March 18, 2021. TECHNIQUE: Helical axial images of the head were obtained following uneventful intravenous administration of 112 cc of Optiray. Sagittal and coronal reconstructions were viewed as well as maximal intensity projections on an independent 3-D workstation. Automated exposure control was utilized for the study. A dose lowering technique was utilized adhering to the principles of A STAR. FINDINGS: Brain volume is normal. Ventricular system is normal. Basal cisterns are patent. No extra-axial collections are present. No acute intracranial hemorrhage was identified on the head CT which will be reported separately. Mucous retention cyst within the right maxillary sinus is noted. The bilateral M1, M2, A1 and A2 segments are patent. There is mild plaque within the bilateral cavernous carotids without stenosis. persistence of the bilateral posterior to arteries is noted. As a result, the basilar artery and intracranial portions of the vertebral arteries are somewhat diminutive. Posterior cerebral arteries are patent. Major dural sinuses are patent. No intracranial aneurysm. IMPRESSION: No central vessel occlusion. No intracranial aneurysm. CT angio neck with con CLINICAL HISTORY: 61 years-old Male with neuro deficit, acute stroke suspected. Acute strokelike symptoms COMPARISON STUDY: CTA had of same day TECHNIQUE: Following the IV administration of 112 mL of Optiray, CT angiogram of the neck was performed from the aortic arch to the skull base. Images are reviewed in the axial, sagittal, and coronal planes. 3-D MIPS images are created and assessed. IV contrast was administered without complication. All measurements were calculated based on NASCET criteria. A dose lowering technique was utilized adhering to the principles of ALARA. FINDINGS: Three-vessel morphology of the thoracic aortic arch. Patency of the innominate and imaged subclavian arteries. The common and internal carotid arteries are widely patent. Dominant right vertebral artery. The bilateral vertebral arteries are patent. origin of the posterior cerebral arteries. No aneurysm, dissection, high-grade stenosis or arterial occlusion identified. No pneumothorax. Unremarkable soft tissues. Mild polypoid mucosal thickening of the maxillary sinuses, right greater than left. Degenerative changes of the cervical spine without acute fracture identified. IMPRESSION:Unremarkable CTA of the neck. Medications Administered ER medications given: NSS 500 mL bolus Aspirin 324 mg p.o. ECG Indication: chest pain Rate (beats per minute): 72 Rhythm: normal sinus Findings: + other (Poor R wave progression); no acute ischemic change Comparison ECG Date: from (July 02, 2019) Change: no significant change Code Status & VTE Plan Code Status Full PG Care Time/CCT Total # of Minutes Spent Total Time Spent with Patient: Total time spent is greater than 50% in coordination of care (as documented) at patient's floor/unit and/or counseling patient: Coding Level of Care Code 17721 INT INP/OBS CARE 3/75MIN Diagnoses Chest pain R07.9 Left arm weakness R29.898 Hyperlipidemia E78.5
[2022-04-12] MEDS ORDERED: ACETAMINOPHEN 325 MG TAB PO PRN (16:02)
[2022-04-12] MEDS ORDERED: PHARMACIST DISCHARGE MED REC CONSULT PRN (16:02)
--- NOTE | 2022-04-12 16:42 | Neurology Consultation ---
Date of Consultation April 12, 2022 Assessment & Plan (1) Left arm weakness: Impression: The patient suddenly had burning left chest pain, which was radiating to left arm with paresthesia and weakness, started around 10:15 AM today. Imaging studies including head CT, CT angiogram of head, neck, and chest were unremarkable. The symptoms have been resolved since then. This is unlikely to be related to cerebrovascular accident, however, reported arm weakness will indicate stroke work-up. Recommendations/plan: We should start patient on daily aspirin, 81 mg. Continue on the rosuvastatin as before. We will check fasting lipid panel. Goal LDL level is lower than 100 unless MRI shows cerebrovascular accident. There is no indication for permissive hypertension. Usual management of blood pressure. Brain MRI without contrast. If brain MRI shows cerebrovascular accident, we should pursue with additional stroke work-up including echocardiogram with bubble study. Telemetry monitoring. Neurological monitoring. Thank you for the consultation. (2) Chest pain: Impression: The patient had sudden onset left chest pain, burning sensation, which was radiating to left arm, jaw, and abdomen. This is highly suggestive of coronary artery syndrome. The patient denies having similar symptoms in the past. Recommendations and plan: Cardiac enzymes. EKG and telemetry monitoring. Consider cardiology consultation. History of Present Illness Reason for Consultation: Left arm numbness and weakness. Requesting Physician: Martin Wilhelm MD Attending Physician: Martin Wilhelm MD History of Present Illness The patient is a 61-year-old pleasant gentleman, who experienced sudden onset, left burning chest pain, which was radiating to left arm, jaw and abdomen around 10:15 AM today. At the same time, he experienced left arm numbness and weakness. He did not experience neck pain, headache, or sensorimotor symptoms in other extremities. His speech was unaffected. Code stroke was activated and the patient was brought to emergency department. His symptoms were resolving in emergency department. Telestroke neurologist was consulted. Head CT, CT angiogram of head and neck, and CT angiogram of the chest did not show vascular abnormality or other acute intracranial pathology. Since then, his symptoms have been resolved completely. The patient denies having similar symptoms in the past. He has history of oral hyperlipidemia on the rosuvastatin. He denies having angina symptoms before. He denies any head and neck trauma but last weekend, he was carrying furniture's in the house, with some muscle ac hes.Laboratory work-up did not show obvious abnormality. The patient was admitted to hospital for stroke and cardiac work-up. Cardiac monitoring has been showing sinus rhythm so far. I have reviewed the patient's chart including imaging studies and visualized them personally. I have discussed the case with the patient and answered his questions in detail. Allergies Allergy/AdvReac Type Severity Reaction Status Date / Time No Known Allergies Allergy Verified 07/02/19 18:43 Home Medications Medication Instructions Recorded Confirmed Type ascorbic acid (vitamin C) 500 mg 500 mg PO QAM 11/27/17 04/12/22 History tablet (Vitamin C) cholecalciferol (vitamin D3) 25 1,000 unit PO QAM 11/27/17 04/12/22 History mcg (1,000 unit) capsule (Vitamin D3) garlic 1,000 mg capsule 1,000 mg PO QAM 11/27/17 04/12/22 History ibuprofen 200 mg tablet 200 - 400 mg PO QID PRN Pain 11/27/17 04/12/22 History multivitamin 1 tab PO QAM 11/27/17 04/12/22 History turmeric 400 mg capsule 1 tab PO QAM 11/27/17 04/12/22 History cinnamon bark 500 mg capsule 1,000 mg PO DAILY 07/02/19 04/12/22 History (Cinnamon) glucosamine sulf dipot 2 cap PO DAILY 07/02/19 04/12/22 History chlr,msm,chond 550 mg-C 30 mg-gala 1 mg capsule (Glucosamine Chondroitin) rosuvastatin 10 mg tablet (Crestor) 10 mg PO DAILY 07/02/19 04/12/22 History Pomegranate 04/12/22 History Patient History Medical History Diverticular disease History of anesthesia reaction VOCAL CORDS DAMAGED DURING HERNIA SURGERY Hyperlipidemia NO MEDS, DIET CONTROLLED Nausea and vomiting after administration of anesthetic agent Obesity (BMI 30-39.9) Osteoarthritis Surgical History H/O arthroscopy of left knee X3 H/O arthroscopy of right knee X3 H/O umbilical hernia repair History of colonoscopy History of repair of left rotator cuff History of repair of right rotator cuff History of tooth extraction WISDOM TEETH History of total left knee replacement (TKR) Hx of vasectomy S/P LASIK surgery of both eyes Family History Mother Family history of diabetes mellitus Grandfather Family hx of colon cancer PATERNAL Grandmother Family hx of colon cancer PATERNAL Brother Family hx of colon cancer 2 BROTHERS Family history of esophageal cancer Family/Other Family hx of colon cancer PATERNAL UNCLES Social History Smoking Status: Never smoker Second Hand Exposure: Yes (BOTH PARENTS SMOKED); Hx Alcohol Use: Yes Alcohol type: beer and wine Hx Substance Use: No Preferred Language: Kinyarwanda Communication Ability: Effective General Foreman Required: No Beliefs That Will Affect Care: Gnosticist Gnosticist Beliefs: PENTECOSTALISM Current Living Situation: Spouse and Family Current Living Situation Comment: LIVES WITH AND SON Feels Safe at Home: Yes Assistive Devices: Glasses Review of Systems Review of Systems: All systems reviewed & are unremarkable except as noted in HPI & below Physical Exam Physical Exam: General Examination: Constitutional: Well developed person in no acute distress. HENT: Normal exam with inspection. CV: Hearth rhythm is regular. Neck: Supple, no carotid bruits. Lungs: Non-labored and comfortable breathing. Abdomen: Soft, non-tender, non-distended. Skin: No rash or ecchymosis. Extremities: No edema or cyanosis NEUROLOGICAL EXAMINATION: Mental Status: Alert and oriented to place, person and time. Cranial Nerves: II-XII are intact. No nystagmus. Funduscopy: Normal looking optic discs. Motor: 5/5 in all extremities without asymmetry. Tone: Normal without spasticity or rigidity. Sensory: Intact to all sensory modalities. Coordination: No dysmetria with FTN testing. Speech: Fluent. Comprehension is intact. Gait: Normal. No ataxia or abnormal walking pattern. Musculoskeletal: Normal muscle bulk, no atrophy. DTRs: 2- all. No babinsky Results & Data ([facility]) Vital Signs (Past 12 Hours) Vital Signs Temp Pulse Resp BP Pulse Ox O2 Del Method 04/12/22 15:20 59 L 12 149/95 H 94 Room Air 04/12/22 15:10 52 L 12 95 04/12/22 15:00 54 L 14 94 04/12/22 15:00 149/95 H 04/12/22 14:50 57 L 12 97 04/12/22 14:40 61 10 L 94 Room Air 04/12/22 14:38 63 18 04/12/22 14:38 139/94 04/12/22 13:40 57 L 12 96 04/12/22 13:30 56 L 12 96 04/12/22 13:30 155/98 H 04/12/22 13:20 57 L 9 L 96 04/12/22 13:10 58 L 9 L 94 04/12/22 13:05 65 15 95 04/12/22 12:54 60 18 176/97 H 95 Room Air 04/12/22 12:27 62 12 125/86 98 Room Air 04/12/22 12:03 97 Room Air 04/12/22 11:38 65 18 98 Room Air 04/12/22 11:12 36.8 C 68 18 200/134 H 97 Room Air Laboratory Results Laboratory Results - last 24 hr 04/12/22 04/12/22 04/12/22 11:28 11:28 11:28 WBC 4.81 RBC 5.12 Hgb 15.6 POC Hgb Hct 43.9 POC Hct MCV 85.7 MCH 30.5 MCHC 35.5 RDW Std Deviation 38.7 RDW Coeff of Anna 12.3 Plt Count 171 MPV 9.5 Immature Gran % (Auto) 0.2 Neut % (Auto) 56.0 Lymph % (Auto) 32.6 [place] % (Auto) 10.2 Eos % (Auto) 0.4 Baso % (Auto) 0.6 Neut # (Auto) 2.69 Lymph # (Auto) 1.57 [place] # (Auto) 0.49 Eos # (Auto) 0.02 Baso # (Auto) 0.03 Immature Gran # (Auto) 0.01 PT 10.6 INR 1.0 APTT 26.2 PTT Ratio 1.0 POC Sodium Sodium 137 POC Potassium Potassium 4.1 POC Chloride Chloride 106 Carbon Dioxide 26 POC Total CO2 Anion Gap 5 POC Anion Gap POC BUN BUN 19 Creatinine 0.94 POC Creatinine Est Cr Clr Drug Dosing 97.1 Est GFR ( Amer) 101.0 Est GFR (Non-Af Amer) 87.2 BUN/Creatinine Ratio 20.2 H Glucose 97 POC Glucose POC Glucose (other) Calcium 10.3 H POC Ioniz Calcium Andrzej Phosphorus 3.4 Magnesium 2.2 Total Bilirubin 1.3 H AST 18 ALT 23 Alkaline Phosphatase 60 Troponin I High Sens 2.7 Total Protein 7.9 Albumin 4.6 Globulin 3.3 Albumin/Globulin Ratio 1.4 Lipase 28 SARS-CoV-2, RNA, NAAT 04/12/22 04/12/22 04/12/22 11:30 11:34 11:50 WBC RBC Hgb POC Hgb 15.0 Hct POC Hct 44 MCV MCH MCHC RDW Std Deviation RDW Coeff of Anna Plt Count MPV Immature Gran % (Auto) Neut % (Auto) Lymph % (Auto) [place] % (Auto) Eos % (Auto) Baso % (Auto) Neut # (Auto) Lymph # (Auto) [place] # (Auto) Eos # (Auto) Baso # (Auto) Immature Gran # (Auto) PT INR APTT PTT Ratio POC Sodium 139 Sodium POC Potassium 4.1 Potassium POC Chloride 105 Chloride Carbon Dioxide POC Total CO2 24 Anion Gap POC Anion Gap 14.0 L POC BUN 16 BUN Creatinine POC Creatinine 0.9 Est Cr Clr Drug Dosing Est GFR ( Amer) Est GFR (Non-Af Amer) BUN/Creatinine Ratio Glucose POC Glucose 95 POC Glucose (other) 95 Calcium POC Ioniz Calcium Andrzej 1.18 Phosphorus Magnesium Total Bilirubin AST ALT Alkaline Phosphatase Troponin I High Sens Total Protein Albumin Globulin Albumin/Globulin Ratio Lipase SARS-CoV-2, RNA, NAAT NEGATIVE 04/12/22 14:13 WBC RBC Hgb POC Hgb Hct POC Hct MCV MCH MCHC RDW Std Deviation RDW Coeff of Anna Plt Count MPV Immature Gran % (Auto) Neut % (Auto) Lymph % (Auto) [place] % (Auto) Eos % (Auto) Baso % (Auto) Neut # (Auto) Lymph # (Auto) [place] # (Auto) Eos # (Auto) Baso # (Auto) Immature Gran # (Auto) PT INR APTT PTT Ratio POC Sodium Sodium POC Potassium Potassium POC Chloride Chloride Carbon Dioxide POC Total CO2 Anion Gap POC Anion Gap POC BUN BUN Creatinine POC Creatinine Est Cr Clr Drug Dosing Est GFR ( Amer) Est GFR (Non-Af Amer) BUN/Creatinine Ratio Glucose POC Glucose POC Glucose (other) Calcium POC Ioniz Calcium Andrzej Phosphorus Magnesium Total Bilirubin AST ALT Alkaline Phosphatase Troponin I High Sens 3.7 Total Protein Albumin Globulin Albumin/Globulin Ratio Lipase SARS-CoV-2, RNA, NAAT Diagnostic Findings Chest X-Ray 04/12/22 11:17 XR chest 1V portable HISTORY: Chest pain, nonspecific COMPARISON: Chest 07/02/2019. FINDINGS: The cardiac silhouette remains borderline enlarged. No pleural effusions. No pneumothorax. The lungs are clear. No acute rib fractures. IMPRESSION: No significant change compared to the prior study. No acute process. ACT 112: Negative or not required by law. Electronically signed by: Julio Leong M.D. 04/12/2022 12:46 PM Chest CTA 04/12/22 11:29 CT angio chest dissec wo/w con HISTORY: 61 years-old Male with stabbing CP, LUE weakness. Acute chest pain with left upper extremity weakness TECHNIQUE: Multiple CTA images of the chest were obtained after the intravenous administration of 112 ml Optiray. Coronal and sagittal MIPS were obtained from the axial data set and were submitted for review. Noncontrast chest CT also obtained. All measurements were obtained according to NASCET criteria. A dose lowering technique was utilized adhering to the principles of ALARA. COMPARISON: Chest radiograph of same day FINDINGS: CTA: Moderate cardiomegaly without pericardial effusion. Moderate coronary artery calcifications. No thoracic aortic aneurysm or dissection. The opacified pu lmonary artery appears unremarkable. CT CHEST: Unremarkable thyroid. No lymphadenopathy. No pneumothorax, pleural effusion, airspace consolidation, overt pulmonary edema, suspicious pulmonary nodule or mass. Central airways are patent. Mild nonspecific distal esophageal wall thickening with nonenlarged periesophageal lymph nodes. Mild hepatic steatosis. No hepatic mass identified. Unremarkable soft tissues. No acute fracture identified. Prior left-sided rotator cuff repair. IMPRESSION: 1. No thoracic aortic aneurysm or dissection. 2. Cardiomegaly with moderate coronary artery calcifications. 3. Mild hepatic steatosis. ACT 112: Negative or not required by law. The above report was generated using voice recognition software. It may contain grammatical, syntax or spelling errors. Electronically signed by: Hipolito Ventura M.D. 04/12/2022 12:[address] 04/12/22 11:29 CT OF THE HEAD WITHOUT CONTRAST CLINICAL HISTORY: neuro deficit, acute stroke suspected. Left-sided weakness. COMPARISON STUDY: MRI of the brain March 18, 2021. CT DOSE: 3066.13 mGy.cm TECHNIQUE: Helical axial images of the head were obtained without IV contrast. Automated exposure control was utilized for the study. A dose lowering technique was utilized adhering to the principles of ALARA. FINDINGS: No acute intracranial hemorrhage, midline shift or mass effect is present. The ventricular system is unremarkable. The basal cisterns are patent. No extra-axial collections are present. There are no findings to suggest acute dural sinus thrombosis or acute territorial infarct. No significant calvarial abnormalities are present. Visualized portions of the sinuses and mastoid air cells are clear. IMPRESSION: No acute intracranial findings. ACT 112: Negative or not required by law. Electronically signed by: Cali Whitaker M.D. 04/12/2022 12:05 PM Head CTA 04/12/22 11:29 CTA ANGIOGRAPHY OF THE HEAD CLINICAL HISTORY: neuro deficit, acute stroke suspected. Left-sided weakness. COMPARISON STUDY: MRI of the brain March 18, 2021. TECHNIQUE: Helical axial images of the head were obtained following uneventful intravenous administration of 112 cc of Optiray. Sagittal and coronal reconstructions were viewed as well as maximal intensity projections on an independent 3-D workstation. Automated exposure control was utilized for the study. A dose lowering technique was utilized adhering to the principles of ALARA. FINDINGS: Brain volume is normal. Ventricular system is normal. Basal cisterns are patent. No extra-axial collections are present. No acute intracranial hemorrhage was identified on the head CT which will be reported separately. Mucous retention cyst within the right maxillary sinus is noted. The bilateral M1, M2, A1 and A2 segments are patent. There is mild plaque within the bilateral cavernous carotids without stenosis. persistence of the bilateral rougher merchant mill ior to arteries is noted. As a result, the basilar artery and intracranial portions of the vertebral arteries are somewhat diminutive. Posterior cerebral arteries are patent. Major dural sinuses are patent. No intracranial aneurysm. IMPRESSION: No central vessel occlusion. No intracranial aneurysm. ACT 112: Negative or not required by law. Electronically signed by: Cali Whitaker M.D. 04/12/2022 12:10 PM Neck CTA 04/12/22 11:29 CT angio neck with con CLINICAL HISTORY: 61 years-old Male with neuro deficit, acute stroke suspected. Acute strokelike symptoms COMPARISON STUDY: CTA had of same day TECHNIQUE: Following the IV administration of 112 mL of Optiray, CT angiogram of the neck was performed from the aortic arch to the skull base. Images are reviewed in the axial, sagittal, and coronal planes. 3-D MIPS images are created and assessed. IV contrast was administered without complication. All measurements were calculated based on NASCET criteria. A dose lowering technique was utilized adhering to the principles of ALARA. FINDINGS: Three-vessel morphology of the thoracic aortic arch. Patency of the innominate and imaged subclavian arteries. The common and internal carotid arteries are widely patent. Dominant right vertebral artery. The bilateral vertebral arteries are patent. origin of the posterior cerebral arteries. No aneurysm, dissection, high-grade stenosis or arterial occlusion identified. No pneumothorax. Unremarkable soft tissues. Mild polypoid mucosal thickening of the maxillary sinuses, right greater than left. Degenerative changes of the cervical spine without acute fracture identified. IMPRESSION:Unremarkable CTA of the neck. ACT 112: Negative or not required by law. The above report was generated using voice recognition software. It may contain grammatical, syntax or spelling errors. Electronically signed by: Hipolito Ventura M.D. 04/12/2022 12:23 PM
--- NOTE | 2022-04-12 17:29 | Magnetic Resonance Report ---
MR brain wo con HISTORY: 61 years-old Male Left upper extremity weakness acute strokelike symptoms COMPARISON: Head CT of same day, brain MRI March 18, 2021 TECHNIQUE: Multiplanar multisequence MRI of the brain was obtained without the use of IV contrast. FINDINGS: No restricted diffusion. Midline structures appear unremarkable. Degenerative changes of the imaged c ervical spine. No acute intracranial hemorrhage, midline shift, abnormal extra-axial collection, hydr ocephalus or intracranial mass. No pathologic blooming artifact. There are a few punctate foci of T2/ FLAIR prolongation noted within the white matter, likely of no clinical significance. Cerebral venous sinuses and major arterial flow voids appear patent. Mild mucosal thickening of the r ight maxillary sinus. The mastoid air cells are clear. The skull, orbits and soft tissues are unremar kable. IMPRESSION: No acute intracranial abnormality. No acute or subacute infarct. ACT 112: Negative or not required by law. The above report was generated using voice recognition software. It may contain grammatical, syntax o r spelling errors. Electronically signed by: Hipolito Ventura M.D. 04/12/2022 5:26 PM
[2022-04-12] MEDS ORDERED: diphenhydrAMINE Capsule 25 MG CAP PO PRN (18:17)
[2022-04-13 06:39] LABS: Basophils # (auto) 0.03 K/uL (0-0.2); Basophils % (auto) 0.6 %; Eosinophils # (auto) 0.03 K/uL (0-0.50); Eosinophils % (auto) 0.6 %; Hematocrit (blood only) 43.1 % (42.0-52.0); Immature Granulocytes # (auto) 0.01 K/uL (0.01-0.20); Immature Granulocytes % (auto) 0.2 %; Lymphocytes # (auto) 1.53 K/uL (1.2-3.4); Lymphocytes % (auto) 28.8 %; Mean Corpuscular Hemoglobin 30.2 pg (25.0-34.0); Mean Corpuscular Hgb Conc 34.8 g/dL (32.0-36.0); Mean Corpuscular Volume 86.7 fL (80.0-100.0); Mean Platelet Volume 9.8 fL (9.4-12.4); Monocytes # (auto) 0.49 K/uL (0.11-0.59); Monocytes % (auto) 9.2 %; Neutrophils # (auto) 3.22 K/uL (1.40-6.50); Neutrophils % (auto) 60.6 %; Platelet Count 167 K/uL (130-400); RDW Coefficient of Variation 12.4 % (11.5-14.5); Red Blood Count 4.97 M/uL (4.70-6.10); White Blood Count 5.31 K/ul (4.8-10.8)
--- NOTE | 2022-04-13 07:57 | Hospitalist Progress Note ---
Date of Service April 13, 2022 Assessment & Plan (1) Chest pain: Plan: Sudden onset chest pain 2/8 AM for 20-25 minutes w/ radiation to epigastric area and jaw with L arm weakness Moderate atherosclerotic disease on CT Trop negative x 3 Stress ECHO for this morning ordered A1c/lipid panel pending for risk stratification (2) Left arm weakness: Plan: Given significant pronator drift noted by ER physician will complete stroke workup with brain MRI and consult neurology given no good alternative explanation of his sudden weakness but low suspicion this is stroke related and may just be related to his chest pain MRI brain negative for acute process Recs to start asa 81mg daily (3) Hyperlipidemia: Plan: Continue rosuvastatin 10 mg p.o. daily Plan VTE prophylaxis - low risk Diet - heart healthy, n.p.o. at midnight Disposition - observation status to [facility] with telemetry Admission and Anticipated Discharge Date Admission Date: April 12, 2022 Results & Data Results & Data ([facility]) Vital Signs (Past 12 Hours) Vital Signs Temp Pulse Resp BP Pulse Ox O2 Del Method 04/13/22 07:44 36.7 C 62 18 142/81 H 95 Room Air 04/13/22 02:38 36.7 C 63 20 129/78 96 Room Air 04/12/22 22:42 36.8 C 60 20 139/81 94 Room Air Laboratory Results 04/13/22 04/13/22 04/13/22 Range/Units 06:01 06:01 06:01 WBC (4.8-10.8) K/ul RBC (4.70-6.10) M/uL Hgb (14.0-18.0) g/dl POC Hgb (14.0-18.0) g/dl Hct (42.0-52.0) % POC Hct (42-52) % MCV (80.0-100.0) fL MCH (25.0-34.0) pg MCHC (32.0-36.0) g/dL RDW Std Deviation (36.4-46.3) fL RDW Coeff of Anna (11.5-14.5) % Plt Count (130-400) K/uL MPV (9.4-12.4) fL Immature Gran % (Auto) % Neut % (Auto) % Lymph % (Auto) % Giles % (Auto) % Eos % (Auto) % Baso % (Auto) % Neut # (Auto) (1.40-6.50) K/uL Lymph # (Auto) (1.2-3.4) K/uL Giles # (Auto) (0.11-0.59) K/uL Eos # (Auto) (0-0.50) K/uL Baso # (Auto) (0-0.2) K/uL Immature Gran # (Auto) (0.01-0.20) K/uL PT (9.0-12.0) Seconds INR (0.9-1.1) APTT (21.0-31.0) Seconds PTT Ratio POC Sodium (135-144) mmol/L Sodium Pending (136-145) mmol/L POC Potassium (3.3-5.0) mmol/L Potassium Pending (3.5-5.1) mmol/L POC Chloride (101-112) mmol/L Chloride Pending (98-107) mmol/L Carbon Dioxide Pending (21-32) mmol/L POC Total CO2 (24-31) mmol/L Anion Gap Pending (3-11) POC Anion Gap (16-25) mmol/L POC BUN (7-18) mg/dl BUN Pending (6-23) mg/dl Creatinine Pending (0.6-1.4) mg/dl POC Creatinine (0.6-1.3) mg/dl Est Cr Clr Drug Dosing Pending ml/min Est GFR ( Amer) Pending ml/min Est GFR (Non-Af Amer) Pending ml/min BUN/Creatinine Ratio Pending (10-20) Glucose Pending (70-99(Fasting)) mg/dl POC Glucose (70-99) mg/dl POC Glucose (other) (70-99) mg/dl Estimat Average Glucose Pending Hemoglobin A1c Pending Calcium Pending (8.5-10.1) mg/dl POC Ioniz Calcium Andrzej (1.12-1.32) mmol/l Phosphorus (2.5-4.9) mg/dl Magnesium (1.7-2.4) mg/dl Total Bilirubin (0.2-1.0) mg/dl AST (13-39) U/L ALT (7-52) U/L Alkaline Phosphatase (34-104) U/L Troponin I High Sens 2.7 (0-20) pg/ml Total Protein (6.0-8.3) gm/dl Albumin (3.4-5.0) gm/dl Globulin (2.5-4.0) gm/dl Albumin/Globulin Ratio (0.9-2) Triglycerides Pending Cholesterol Pending LDL Cholesterol, Calc Pending VLDL Cholesterol, Calc Pending HDL Cholesterol Pending Cholesterol/HDL Ratio Pending Lipase (11-82) U/L SARS-CoV-2, RNA, NAAT (NEGATIVE) 04/13/22 04/12/22 04/12/22 Range/Units 06:01 22:46 14:13 WBC 5.31 (4.8-10.8) K/ul RBC 4.97 (4.70-6.10) M/uL Hgb 15.0 (14.0-18.0) g/dl POC Hgb (14.0-18.0) g/dl Hct 43.1 (42.0-52.0) % POC Hct (42-52) % MCV 86.7 (80.0-100.0) fL MCH 30.2 (25.0-34.0) pg MCHC 34.8 (32.0-36.0) g/dL RDW Std Deviation 39.0 (36.4-46.3) fL RDW Coeff of Anna 12.4 (11.5-14.5) % Plt Count 167 (130-400) K/uL MPV 9.8 (9.4-12.4) fL Immature Gran % (Auto) 0.2 % Neut % (Auto) 60.6 % Lymph % (Auto) 28.8 % Giles % (Auto) 9.2 % Eos % (Auto) 0.6 % Baso % (Auto) 0.6 % Neut # (Auto) 3.22 (1.40-6.50) K/uL Lymph # (Auto) 1.53 (1.2-3.4) K/uL Giles # (Auto) 0.49 (0.11-0.59) K/uL Eos # (Auto) 0.03 (0-0.50) K/uL Baso # (Auto) 0.03 (0-0.2) K/uL Immature Gran # (Auto) 0.01 (0.01-0.20) K/uL PT (9.0-12.0) Seconds INR (0.9-1.1) APTT (21.0-31.0) Seconds PTT Ratio POC Sodium (135-144) mmol/L Sodium (136-145) mmol/L POC Potassium (3.3-5.0) mmol/L Potassium (3.5-5.1) mmol/L POC Chloride (101-112) mmol/L Chloride (98-107) mmol/L Carbon Dioxide (21-32) mmol/L POC Total CO2 (24-31) mmol/L Anion Gap (3-11) POC Anion Gap (16-25) mmol/L POC BUN (7-18) mg/dl BUN (6-23) mg/dl Creatinine (0.6-1.4) mg/dl POC Creatinine (0.6-1.3) mg/dl Est Cr Clr Drug Dosing ml/min Est GFR ( Amer) ml/min Est GFR (Non-Af Amer) ml/min BUN/Creatinine Ratio (10-20) Glucose (70-99(Fasting)) mg/dl POC Glucose (70-99) mg/dl POC Glucose (other) (70-99) mg/dl Estimat Average Glucose Hemoglobin A1c Calcium (8.5-10.1) mg/dl POC Ioniz Calcium Andrzej (1.12-1.32) mmol/l Phosphorus (2.5-4.9) mg/dl Magnesium (1.7-2.4) mg/dl Total Bilirubin (0.2-1.0) mg/dl AST (13-39) U/L ALT (7-52) U/L Alkaline Phosphatase (34-104) U/L Troponin I High Sens 3.3 3.7 (0-20) pg/ml Total Protein (6.0-8.3) gm/dl Albumin (3.4-5.0) gm/dl Globulin (2.5-4.0) gm/dl Albumin/Globulin Ratio (0.9-2) Triglycerides Cholesterol LDL Cholesterol, Calc VLDL Cholesterol, Calc HDL Cholesterol Cholesterol/HDL Ratio Lipase (11-82) U/L SARS-CoV-2, RNA, NAAT (NEGATIVE) 04/12/22 04/12/22 04/12/22 Range/Units 11:50 11:34 11:30 WBC (4.8-10.8) K/ul RBC (4.70-6.10) M/uL Hgb (14.0-18.0) g/dl POC Hgb 15.0 (14.0-18.0) g/dl Hct (42.0-52.0) % POC Hct 44 (42-52) % MCV (80.0-100.0) fL MCH (25.0-34.0) pg MCHC (32.0-36.0) g/dL RDW Std Deviation (36.4-46.3) fL RDW Coeff of Anna (11.5-14.5) % Plt Count (130-400) K/uL MPV (9.4-12.4) fL Immature Gran % (Auto) % Neut % (Auto) % Lymph % (Auto) % Giles % (Auto) % Eos % (Auto) % Baso % (Auto) % Neut # (Auto) (1.40-6.50) K/uL Lymph # (Auto) (1.2-3.4) K/uL Giles # (Auto) (0.11-0.59) K/uL Eos # (Auto) (0-0.50) K/uL Baso # (Auto) (0-0.2) K/uL Immature Gran # (Auto) (0.01-0.20) K/uL PT (9.0-12.0) Seconds INR (0.9-1.1) APTT (21.0-31.0) Seconds PTT Ratio POC Sodium 139 (135-144) mmol/L Sodium (136-145) mmol/L POC Potassium 4.1 (3.3-5.0) mmol/L Potassium (3.5-5.1) mmol/L POC Chloride 105 (101-112) mmol/L Chloride (98-107) mmol/L Carbon Dioxide (21-32) mmol/L POC Total CO2 24 (24-31) mmol/L Anion Gap (3-11) POC Anion Gap 14.0 L (16-25) mmol/L POC BUN 16 (7-18) mg/dl BUN (6-23) mg/dl Creatinine (0.6-1.4) mg/dl POC Creatinine 0.9 (0.6-1.3) mg/dl Est Cr Clr Drug Dosing ml/min Est GFR ( Amer) ml/min Est GFR (Non-Af Amer) ml/min BUN/Creatinine Ratio (10-20) Glucose (70-99(Fasting)) mg/dl POC Glucose 95 (70-99) mg/dl POC Glucose (other) 95 (70-99) mg/dl Estimat Average Glucose Hemoglobin A1c Calcium (8.5-10.1) mg/dl POC Ioniz Calcium Andrzej 1.18 (1.12-1.32) mmol/l Phosphorus (2.5-4.9) mg/dl Magnesium (1.7-2.4) mg/dl Total Bilirubin (0.2-1.0) mg/dl AST (13-39) U/L ALT (7-52) U/L Alkaline Phosphatase (34-104) U/L Troponin I High Sens (0-20) pg/ml Total Protein (6.0-8.3) gm/dl Albumin (3.4-5.0) gm/dl Globulin (2.5-4.0) gm/dl Albumin/Globulin Ratio (0.9-2) Triglycerides Cholesterol LDL Cholesterol, Calc VLDL Cholesterol, Calc HDL Cholesterol Cholesterol/HDL Ratio Lipase (11-82) U/L SARS-CoV-2, RNA, NAAT NEGATIVE (NEGATIVE) 04/12/22 04/12/22 04/12/22 Range/Units 11:28 11:28 11:28 WBC 4.81 (4.8-10.8) K/ul RBC 5.12 (4.70-6.10) M/uL Hgb 15.6 (14.0-18.0) g/dl POC Hgb (14.0-18.0) g/dl Hct 43.9 (42.0-52.0) % POC Hct (42-52) % MCV 85.7 (80.0-100.0) fL MCH 30.5 (25.0-34.0) pg MCHC 35.5 (32.0-36.0) g/dL RDW Std Deviation 38.7 (36.4-46.3) fL RDW Coeff of Anna 12.3 (11.5-14.5) % Plt Count 171 (130-400) K/uL MPV 9.5 (9.4-12.4) fL Immature Gran % (Auto) 0.2 % Neut % (Auto) 56.0 % Lymph % (Auto) 32.6 % Giles % (Auto) 10.2 % Eos % (Auto) 0.4 % Baso % (Auto) 0.6 % Neut # (Auto) 2.69 (1.40-6.50) K/uL Lymph # (Auto) 1.57 (1.2-3.4) K/uL Giles # (Auto) 0.49 (0.11-0.59) K/uL Eos # (Auto) 0.02 (0-0.50) K/uL Baso # (Auto) 0.03 (0-0.2) K/uL Immature Gran # (Auto) 0.01 (0.01-0.20) K/uL PT 10.6 (9.0-12.0) Seconds INR 1.0 (0.9-1.1) APTT 26.2 (21.0-31.0) Seconds PTT Ratio 1.0 POC Sodium (135-144) mmol/L Sodium 137 (136-145) mmol/L POC Potassium (3.3-5.0) mmol/L Potassium 4.1 (3.5-5.1) mmol/L POC Chloride (101-112) mmol/L Chloride 106 (98-107) mmol/L Carbon Dioxide 26 (21-32) mmol/L POC Total CO2 (24-31) mmol/L Anion Gap 5 (3-11) POC Anion Gap (16-25) mmol/L POC BUN (7-18) mg/dl BUN 19 (6-23) mg/dl Creatinine 0.94 (0.6-1.4) mg/dl POC Creatinine (0.6-1.3) mg/dl Est Cr Clr Drug Dosing 97.1 ml/min Est GFR ( Amer) 101.0 ml/min Est GFR (Non-Af Amer) 87.2 ml/min BUN/Creatinine Ratio 20.2 H (10-20) Glucose 97 (70-99(Fasting)) mg/dl POC Glucose (70-99) mg/dl POC Glucose (other) (70-99) mg/dl Estimat Average Glucose Hemoglobin A1c Calcium 10.3 H (8.5-10.1) mg/dl POC Ioniz Calcium Andrzej (1.12-1.32) mmol/l Phosphorus 3.4 (2.5-4.9) mg/dl Magnesium 2.2 (1.7-2.4) mg/dl Total Bilirubin 1.3 H (0.2-1.0) mg/dl AST 18 (13-39) U/L ALT 23 (7-52) U/L Alkaline Phosphatase 60 (34-104) U/L Troponin I High Sens 2.7 (0-20) pg/ml Total Protein 7.9 (6.0-8.3) gm/dl Albumin 4.6 (3.4-5.0) gm/dl Globulin 3.3 (2.5-4.0) gm/dl Albumin/Globulin Ratio 1.4 (0.9-2) Triglycerides Cholesterol LDL Cholesterol, Calc VLDL Cholesterol, Calc HDL Cholesterol Cholesterol/HDL Ratio Lipase 28 (11-82) U/L SARS-CoV-2, RNA, NAAT (NEGATIVE) Diagnostic Findings Chest X-Ray 04/12/22 11:17 XR chest 1V portable HISTORY: Chest pain, nonspecific COMPARISON: Chest 07/02/2019. FINDINGS: The cardiac silhouette remains borderline enlarged. No pleural effusions. No pneumothorax. The lungs are clear. No acute rib fractures. IMPRESSION: No significant change compared to the prior study. No acute process. ACT 112: Negative or not required by law. Electronically signed by: Julio Leong M.D. 04/12/2022 12:46 PM Chest CTA 04/12/22 11:29 CT angio chest dissec wo/w con HISTORY: 61 years-old Male with stabbing CP, LUE weakness. Acute chest pain with left upper extremity weakness TECHNIQUE: Multiple CTA images of the chest were obtained after the intravenous administration of 112 ml Optiray. Coronal and sagittal MIPS were obtained from the axial data set and were submitted for review. Noncontrast chest CT also obtained. All measurements were obtained according to NASCET criteria. A dose lowering technique was utilized adhering to the principles of ALARA. COMPARISON: Chest radiograph of same day FINDINGS: CTA: Moderate cardiomegaly without pericardial effusion. Moderate coronary artery calcifications. No thoracic aortic aneurysm or dissection. The opacified pulmonary artery appears unremarkable. CT CHEST: Unremarkable thyroid. No lymphadenopathy. No pneumothorax, pleural effusion, airspace consolidation, overt pulmonary edema, suspicious pulmonary nodule or mass. Central airways are patent. Mild nonspecific distal esophageal wall thickening with nonenlarged periesophageal lymph nodes. Mild hepatic steatosis. No hepatic mass identified. Unremarkable soft tissues. No acute fracture identified. Prior left-sided rotator cuff repair. IMPRESSION: 1. No thoracic aortic aneurysm or dissection. 2. Cardiomegaly with moderate coronary artery calcifications. 3. Mild hepatic steatosis. ACT 112: Negative or not required by law. The above report was generated using voice recognition software. It may contain grammatical, syntax or spelling errors. Electronically signed by: Hipolito Ventura M.D. 04/12/2022 12:[address] 04/12/22 11:29 CT OF THE HEAD WITHOUT CONTRAST CLINICAL HISTORY: neuro deficit, acute stroke suspected. Left-sided weakness. COMPARISON STUDY: MRI of the brain March 18, 2021. CT DOSE: 3066.13 mGy.cm TECHNIQUE: Helical axial images of the head were obtained without IV contrast. Automated exposure control was utilized for the study. A dose lowering technique was utilized adhering to the principles of ALARA. FINDINGS: No acute intracranial hemorrhage, midline shift or mass effect is present. The ventricular system is unremarkable. The basal cisterns are patent. No extra-axial collections are present. There are no findings to suggest acute dural sinus thrombosis or acute territorial infarct. No significant calvarial abnormalities are present. Visualized portions of the sinuses and mastoid air cells are clear. IMPRESSION: No acute intracranial findings. ACT 112: Negative or not required by law. Electronically signed by: Cali Whitaker M.D. 04/12/2022 12:05 PM Head CTA 04/12/22 11:29 CTA ANGIOGRAPHY OF THE HEAD CLINICAL HISTORY: neuro deficit, acute stroke suspected. Left-sided weakness. COMPARISON STUDY: MRI of the brain March 18, 2021. TECHNIQUE: Helical axial images of the head were obtained following uneventful intravenous administration of 112 cc of Optiray. Sagittal and coronal reconstructions were viewed as well as maximal intensity projections on an independent 3-D workstation. Automated exposure control was utilized for the study. A dose lowering technique was utilized adhering to the principles of ALARA. FINDINGS: Brain volume is normal. Ventricular system is normal. Basal cisterns are patent. No extra-axial collections are present. No acute intracranial hemorrhage was identified on the head CT which will be reported separately. Muco us retention cyst within the right maxillary sinus is noted. The bilateral M1, M2, A1 and A2 segments are patent. There is mild plaque within the bilateral cavernous carotids without stenosis. persistence of the bilateral posterior to arteries is noted. As a result, the basilar artery and intracranial portions of the vertebral arteries are somewhat diminutive. Posterior cerebral arteries are patent. Major dural sinuses are patent. No intracranial aneurysm. IMPRESSION: No central vessel occlusion. No intracranial aneurysm. ACT 112: Negative or not required by law. Electronically signed by: Cali Whitaker M.D. 04/12/2022 12:10 PM Neck CTA 04/12/22 11:29 CT angio neck with con CLINICAL HISTORY: 61 years-old Male with neuro deficit, acute stroke suspected. Acute strokelike symptoms COMPARISON STUDY: CTA had of same day TECHNIQUE: Following the IV administration of 112 mL of Optiray, CT angiogram of the neck was performed from the aortic arch to the skull base. Images are reviewed in the axial, sagittal, and coronal planes. 3-D MIPS images are created and assessed. IV contrast was administered without complication. All measurem ents were calculated based on NASCET criteria. A dose lowering technique was utilized adhering to the principles of ALARA. FINDINGS: Three-vessel morphology of the thoracic aortic arch. Patency of the innominate and imaged subclavian arteries. The common and internal carotid arteries are widely patent. Dominant right vertebral artery. The bilateral vertebral arteries are patent. origin of the posterior cerebral arteries. No aneurysm, dissection, high-grade stenosis or arterial occlusion identified. No pneumothorax. Unremarkable soft tissues. Mild polypoid mucosal thickening of the maxillary sinuses, right greater than left. Degenerative changes of the cervical spine without acute fracture identified. IMPRESSION:Unremarkable CTA of the neck. ACT 112: Negative or not required by law. The above report was generated using voice recognition software. It may contain grammatical, syntax or spelling errors. Electronically signed by: Hipolito Ventura M.D. 04/12/2022 12:23 PM Brain MRI 04/12/22 14:18 MR brain wo con HISTORY: 61 years-old Male Left upper extremity weakness acute strokelike symptoms COMPARISON: Head CT of same day, brain MRI March 18, 2021 TECHNIQUE: Multiplanar multisequence MRI of the brain was obtained without the use of IV contrast. FINDINGS: No restricted diffusion. Midline structures appear unremarkable. Degenerative changes of the imaged cervical spine. No acute intracranial hemorrhage, midline shift, abnormal extra-axial collection, hydrocephalus or intracranial mass. No pathologic blooming artifact. There are a few punctate foci of T2/FLAIR prolongation noted within the white matter, likely of no clinical significance. Cerebral venous sinuses and major arterial flow voids appear patent. Mild mucosal thickening of the right maxillary sinus. The mastoid air cells are clear. The skull, orbits and soft tissues are unremarkable. IMPRESSION: No acute intracranial abnormality. No acute or subacute infarct. ACT 112: Negative or not required by law. The above report was generated using voice recognition software. It may contain grammatical, syntax or spelling errors. Electronically signed by: Hipolito Ventura M.D. 04/12/2022 5:26 PM PG Care Time/CCT Total # of Minutes Spent Total Time Spent with Patient: Total time spent is greater than 50% in coordination of care (as documented) at patient's floor/unit and/or counseling patient: Coding Diagnoses Chest pain R07.9 Chest pain type: unspecified Left arm weakness R29.898 Hyperlipidemia E78.5 (1) Chest pain Chest pain type: unspecified Qualified Code(s): R07.9 - Chest pain, unspecified
[2022-04-13 08:01] LABS: Calcium 9.1 mg/dl (8.5-10.1); Chol HDL Ratio 4.2 (0-5); Creatinine Clr Calc Pharmacy 106.9 ml/min; Est GFR (Non-African American) 92.3 ml/min; Potassium 4.3 mmol/L (3.5-5.1)
[2022-04-13 08:42] LABS: Estimated Average Glucose 114 mg/dl; Hemoglobin A1C 5.6 % (4.5-5.6)
[2022-04-13] MEDS ORDERED: ROSUVASTATIN CALCIUM 10 MG TAB PO SCH (09:00)
[2022-04-13] MEDS ORDERED: ASPIRIN 81 MG ECTAB PO SCH (09:00)
[2022-04-13] MEDS ORDERED: lisinopril 5 MG TAB PO ONE (11:30)
[2022-04-13] MEDS ORDERED: lisinopril 2.5 MG TAB PO SCH (11:30)
--- NOTE | 2022-04-13 11:43 | Discharge Summary ---
Date of Service April 13, 2022 Admission HPI Per Admitting Provider Adam Olmedo is a 61 year old male who presents to the ER with chest pain radiating to his jaw and left arm. Left-sided chest pain started at 10:15am lasting for 20-25 minutes, occurred while sitting in a nonstressful situation, radiating down to his epigastric area of his abdomen, severity 9/10, slowly resolved without intervention while walking around, no worse on exertion or drinking coffee. Nothing he can think of made it better or worse. During this episode of chest tightness he started to feel his left arm becoming numb, no pain but with some weakness. His left hand is felt cold which lasted till 1 PM in the emergency room. He also noticed the chest pain radiating to his jaw which started towards the end of him having chest pain and lasted slightly longer than the chest pain itself. He denies any nausea, shortness of breath, diaphoresis. He is a non-smoker, no diabetes. He has hypercholesterolemia which is treated with rosuvastatin. No previous heart attacks or strokes. Initial high-sen sitivity troponin in the emergency room was normal. Due to left arm weakness and numbness noted in the emergency room a telestroke call was initiated. TNK was not recommended. He reports his left arm weakness and numbness is now completely resolved. Admission Exam Per Admitting Provider Constitutional: WD/WN, vitals as above Eyes: PERRL, conjunctivae normal, anicteric sclerae ENMT: external ear and nose normal, oropharynx normal Respiratory: normal respiratory effort, lungs clear to auscultation Cardiovascular: RRR, no murmur, no edema Gastrointestinal (Abdomen): normal bowel sounds, soft, nontender, no hepatosplenomegaly Musculoskeletal: no cyanosis or clubbing, extremities motor strength 5/5 Skin: no rashes, warm and dry Neurologic: moves all extremities and awake; no focal motor deficits and not confused Speech / Cognition: normal speech Motor/Sensory: no tremor, no pronator drift and no sensory deficit Cranial Nerves: sense of smell intact, PERRL, normal accommodation, EOM intact bilaterally, normal facial strength, tongue midline, able to rotate head bilaterally, able to elevate shoulders bilaterally, no nystagmus and symmetric palate elevation Psychiatric: A+Ox3, euthymic affect Principal Diagnosis TIA, HTN urgency Discharge Exam General: WD/WN male sitting up in bed, no acute distress HEENT: head normocephalic, atraumatic, mmm, trachea midline without deviation Resp: CTAB, no w/c, on room air CV: RRR, no significant m/r/g, no pitting edema/calf tenderness GI: +BS, soft/NT MSK/Neuro: moves all extremities, no focal deficit Psych: AOx3, pleasant and cooperative Discharge Data Allergies Allergy/AdvReac Type Severity Reaction Status Date / Time No Known Allergies Allergy Verified 07/02/19 18:43 Consultations 04/12/22 12:40 ED Decision to Admit Stat 04/12/22 16:02 Consult Neurology Routine Ordered Studies Chest X-Ray 04/12/22 11:17 XR chest 1V portable HISTORY: Chest pain, nonspecific COMPARISON: Chest 07/02/2019. FINDINGS: The cardiac silhouette remains borderline enlarged. No pleural effusions. No pneumothorax. The lungs are clear. No acute rib fractures. IMPRESSION: No significant change compared to the prior study. No acute process. ACT 112: Negative or not required by law. Electronically signed by: Julio Leong M.D. 04/12/2022 12:46 PM Chest CTA 04/12/22 11:29 CT angio chest dissec wo/w con HISTORY: 61 years-old Male with stabbing CP, LUE weakness. Acute chest pain with left upper extremity weakness TECHNIQUE: Multiple CTA images of the chest were obtained after the intravenous administration of 112 ml Optiray. Coronal and sagittal MIPS were obtained from the axial data set and were submitted for review. Noncontrast chest CT also obtained. All measurements were obtained according to NASCET criteria. A dose lowering technique was utilized adhering to the principles of ALARA. COMPARISON: Chest radiograph of same day FINDINGS: CTA: Moderate cardiomegaly without pericardial effusion. Moderate coronary artery calcifications. No thoracic aortic aneurysm or dissection. The opacified pulmonary artery appears unremarkable. CT CHEST: Unremarkable thyroid. No lymphadenopathy. No pneumothorax, pleural effusion, airspace consolidation, overt pulmonary edema, suspicious pulmonary nodule or mass. Central airways are patent. Mild nonspecific distal esophageal wall thickening with nonenlarged periesophageal lymph nodes. Mild hepatic steatosis. No hepatic mass identified. Unremarkable soft tissues. No acute fracture identified. Prior left-sided rotator cuff repair. IMPRESSION: 1. No thoracic aortic aneurysm or dissection. 2. Cardiomegaly with moderate coronary artery calcifications. 3. Mild hepatic steatosis. ACT 112: Negative or not required by law. The above report was generated using voice recognition software. It may contain grammatical, syntax or spelling errors. Electronically signed by: Hipolito Ventura M.D. 04/12/2022 12:[address] 04/12/22 11:29 CT OF THE HEAD WITHOUT CONTRAST CLINICAL HISTORY: neuro deficit, acute stroke suspected. Left-sided weakness. COMPARISON STUDY: MRI of the brain March 18, 2021. CT DOSE: 3066.13 mGy.cm TECHNIQUE: Helical axial images of the head were obtained without IV contrast. Automated exposure control was utilized for the study. A dose lowering technique was utilized adhering to the principles of ALARA. FINDINGS: No acute intracranial hemorrhage, midline shift or mass effect is present. The ventricular system is unremarkable. The basal cisterns are patent. No extra-axial collections are present. There are no findings to suggest acute dural sinus thrombosis or acute territorial infarct. No significant calvarial abnormalities are present. Visualized portions of the sinuses and mastoid air cells are clear. IMPRESSION: No acute intracranial findings. ACT 112: Negative or not required by law. Electronically signed by: Cali Whitaker M.D. 04/12/2022 12:05 PM Head CTA 04/12/22 11:29 CTA ANGIOGRAPHY OF THE HEAD CLINICAL HISTORY: neuro deficit, acute stroke suspected. Left-sided weakness. COMPARISON STUDY: MRI of the brain March 18, 2021. TECHNIQUE: Helical axial images of the head were obtained following uneventful intravenous administration of 112 cc of Optiray. Sagittal and coronal reconstructions were viewed as well as maximal intensity projections on an independent 3-D workstation. Automated exposure control was utilized for the study. A dose lowering technique was utilized adhering to the principles of ALARA. FINDINGS: Brain volume is normal. Ventricular system is normal. Basal cisterns are patent. No extra-axial collections are present. No acute intracranial hemorrhage was identified on the head CT which will be reported separately. Mucous retention cyst within the right maxillary sinus is noted. The bilateral M1, M2, A1 and A2 segments are patent. There is mild plaque within the bilateral cavernous carotids without stenosis. persistence of the bilateral posterior to arteries is noted. As a result, the basilar artery and intracranial portions of the vertebral arteries are somewhat diminutive. Posterior cerebral arteries are patent. Major dural sinuses are patent. No intracranial aneurysm. IMPRESSION: No central vessel occlusion. No intracranial aneurysm. ACT 112: Negative or not required by law. Electronically signed by: Cali Whitaker M.D. 04/12/2022 12:10 PM Neck CTA 04/12/22 11:29 CT angio neck with con CLINICAL HISTORY: 61 years-old Male with neuro deficit, acute stroke suspected. Acute strokelike symptoms COMPARISON STUDY: CTA had of same day TECHNIQUE: Following the IV administration of 112 mL of Optiray, CT angiogram of the neck was performed from the aortic arch to the skull base. Images are reviewed in the axial, sagittal, and coronal planes. 3-D MIPS images are created and assessed. IV contrast was administered without complication. All measurements were calculated based on NASCET criteria. A dose lowering technique was utilized adhering to the principles of ALARA. FINDINGS: Three-vessel morphology of the thoracic aortic arch. Patency of the innominate and imaged subclavian arteries. The common and internal carotid arteries are widely patent. Dominant right vertebral artery. The bilateral vertebral arteries are patent. origin of the posterior cerebral arteries. No aneurysm, dissection, high-grade stenosis or arterial occlusion identified. No pneumothorax. Unremarkable soft tissues. Mild polypoid mucosal thickening of the maxillary sinuses, right greater than left. Degenerative changes of the cervical spine without acute fracture identified. IMPRESSION:Unremarkable CTA of the neck. ACT 112: Negative or not required by law. The above report was generated using voice recognition software. It may contain grammatical, syntax or spelling errors. Electronically signed by: Hipolito Ventura M.D. 04/12/2022 12:23 PM Brain MRI 04/12/22 14:18 MR brain wo con HISTORY: 61 years-old Male Left upper extremity weakness acute strokelike symptoms COMPARISON: Head CT of same day, brain MRI March 18, 2021 TECHNIQUE: Multiplanar multisequence MRI of the brain was obtained without the use of IV contrast. FINDINGS: No restricted diffusion. Midline structures appear unremarkable. Degenerative changes of the imaged cervical spine. No acute intracranial hemorrhage, midline shift, abnormal extra-axial collection, hydrocephalus or intracranial mass. No pathologic blooming artifact. There are a few punctate foci of T2/FLAIR prolongation noted within the white matter, likely of no clinical significance. Cerebral venous sinuses and major arterial flow voids appear patent. Mild mucosal thickening of the right maxillary sinus. The mastoid air cells are clear. The skull, orbits and soft tissues are unremarkable. IMPRESSION: No acute intracranial abnormality. No acute or subacute infarct. ACT 112: Negative or not required by law. The above report was generated using voice recognition software. It may contain grammatical, syntax or spelling errors. Electronically signed by: Hipolito Ventura M.D. 04/12/2022 5:26 PM 04/13/22 -- Stress Echocardiogram The exercise echocardiographic exam is normal without resting LV walll motion abnormalities or inducible ischemia. Baseline ECG essentially normal. No symptoms were noted. Stress ECG response was normal. Exercise capacity is above average. Hospital Course (1) Chest pain: Sudden onset chest pain 2/8 AM for 20-25 minutes w/ radiation to epigastric area and jaw with L arm weakness. Given 324mg aspirin and 1L IVF on admission with resolution of symptoms Moderate atherosclerotic disease on CT Trop negative x 3 EKG essentially normal No afib/flutter on monitor Stress ECHO NEGATIVE A1c/lipid panel pending for risk stratification --> a1c 5.9 Lipid panel acceptable, LDL <100 BPs 123/80 prior to d/c or placement on medications -- BP was 230s/100s on admission but reports normal at office visits. Was drinking coffee/at work [employer], discussed PPI (has generic acid reflux meds at home-- rx for Protonix at d/c prn). Also discussed checking BPs and if elevated outpatient to start meds in discussion with PCP given family w/ sister MD @ age 66, mother at 75. Per patient, mother had hx DM, both were obese and he would prefer off meds given prior well controlled BPs. Did discuss given family history, if elevated in follow up would benefit from better control given moderate coronary artery calcifications on CTA chest (2) Left arm weakness: Given significant pronator drift noted by ER physician will complete stroke workup with brain MRI and consult neurology given no good alternative explanation of his sudden weakness but low suspicion this is stroke related and may just be related to his chest pain MRI brain negative for acute process Recs to start asa 81mg daily -- rx at discharge PT/OT consulted, stable for d/c home (3) Hyperlipidemia: Continued rosuvastatin 10 mg p.o. daily, lipid panel well controlled Plan discharged home continue asa 81mg daily close f/u PCP for BP monitoring/need for start anti-HTN agent Total Time Total Time Spent Total Time Spent (In Minutes): 60 Discharge Plan Discharge Items Patient Disposition: Home - Self-Care Reason For Visit: CHEST PAIN, LEFT ARM NUMBNESS Discharge Diagnosis: Chest Pain, Hypertensive Emergency Goals: You have been hospitalized for an acute medical problem. During your stay at [facility], we have made an effort to correct the problem that brought you to the hospital while keeping you as comfortable as possible. Medications were used to bring your condition under control and your discharge instructions will include directions for any medications you should take after leaving the hospital. Please make sure you see your Primary Care Provider as part of your follow up plan. Activity: As commented below Non-emergency contact: Primary Care Provider Call non-emergency contact if: you have any medication questions, your symptoms worsen, your pain is not controlled and you have a fever Follow-up/Referrals: Jovi Baocn MD [Primary Care Provider] - Diet: Heart Healthy Addtl Attending Provider Instructions: You have been hospitalized for chest pain and left arm weakness. Stroke workup has been negative and neurology was consulted and recommended you start baby aspirin daily 81mg which should be continued at discharge. Troponin levels were normal (measurement to check for damage to the heart) and your stress echo was deemed normal. Your blood pressure was elevated on admission, however given prior reports of this being well controlled in the office setting, we have decided to let you go home without blood pressure medications and recommend you obtain a BP cuff and check your blood pressures at home and alert your primary care provider if your top number is >160 or bottom >90 as this would indicate need to be on medication more urgently. We would recommend you stay away from caffeine products to prevent issues. We have also sent in medications to help with acid reflux and you can use these daily as needed -- protonix 40mg. You should follow up with your primary care provider in the next 7-10 days to monitor your progress. Please return to the ER with any worsening chest pain, shortness of breath, weakness, blurry vision, or for any other symptoms concerning for you. Pending Studies at Discharge: No Stand-Alone Forms: [facility], Work/School Release, Smoking Cessation Medications and DC Order Prescriptions: New aspirin 81 mg Tablet,Delayed Release (Dr/Ec) 81 mg PO QAM Qty: 30 0RF pantoprazole 40 mg tablet,delayed release (DR/EC) 40 mg PO DAILY PRN (Reason: reflux) Qty: 30 0RF Continued multivitamin Tablet 1 tab PO QAM garlic 1,000 mg Capsule 1,000 mg PO QAM ascorbic acid (vitamin C) [Vitamin C] 500 mg Tablet 500 mg PO QAM ibuprofen 200 mg Tablet 200 - 400 mg PO QID PRN (Reason: Pain) cholecalciferol (vitamin D3) [Vitamin D3] 1,000 unit Capsule 1,000 unit PO QAM turmeric 400 mg Capsule 1 tab PO QAM rosuvastatin [Crestor] 10 mg tablet 10 mg PO DAILY cinnamon bark [Cinnamon] 500 mg Capsule 1,000 mg PO DAILY Glucosamine Chondroitin 550-30-1 mg Capsule 2 cap PO DAILY Pomegranate Admission Data Admit Date/Time: 04/12/22 14:18 Attending Provider: Dayna Mccall Admit Provider: Martin Wilhelm Primary Care Provider: Jovi Bacon Other Providers: Martin Wilhelm ; Roberto Carlos Kahn Supervising Physician Co-Signing Physician Notes PA Supervision Note: I personally saw and examined the patient. I verified all alfaro points and agree with EVA Quigley with the following exceptions and/or additions: S-Pt feeling well, BPs controlled, CVA ruled out, MD ruled out. O- Vitals reviewed Gen: [AAOx3, NAD] HEENT: [anicteric sclerae, EOMI] CV: [RRR no mgr nl S1S2] Pulm: [CTAB no wcr] Abd: [+BS soft NT ND no masses or hernias] Ext: [no edema] Skin: [no rashes, warm/dry] Neuro: [full strength throughout] A/P-61 yo male here with chest pain and LUE numbness and hypertensive urgency. COuld be related to GERD symptoms causing pain and anxiety leading to elevated BPs Recommend starting ASA for CAD seen on CT scan. Start Protonix. Continue statin Recommend lifestyle changes, low salt diet, weight loss, exercise program, avoidance of caffeine Watch BPs at home f/u with PCP closely Coding Level of Care Code HOSP INP/OBS DISCH >30 MIN Diagnoses Chest pain R07.9 Chest pain type: unspecified Left arm weakness R29.898 Hyperlipidemia E78.5
--- NOTE | 2022-04-13 12:06 | XCELERA ---
[id number]
--- NOTE | 2022-04-13 12:10 | Electrocardiogram Report ---
Test Reason : Blood Pressure : / mmHG Vent. Rate : 072 BPM Atrial Rate : 072 BPM P-R Int : 170 ms QRS Dur : 088 ms QT Int : 394 ms P-R-T Axes : 061 032 055 degrees QTc Int : 431 ms Normal sinus rhythm Normal ECG When compared with ECG of 12-APR-2022 11:20, No significant change was found Confirmed by Conor Conroy ([id number]) on 04/13/2022 12:10:14 PM Referred By: REFERRED SELF Confirmed By:Conor Conroy
== END 2022-04-13 14:00 | disposition home or self-care (01) ==
LOC: 2N 11:09 → ED 11:09 → SUATTDRO 14:18 → 2N 18:24

== ENCOUNTER 2023-04-11 20:45 | Inpatient (IN) ==
[2023-04-11 21:51] LABS: Albumin Globulin Ratio 1.4 (0.9-2); Albumin Level 4.5 gm/dl (3.4-5.0); BUN Creatinine Ratio 19.4 (10-20); Bilirubin,Total 1.4 mg/dl (0.2-1.0); Calcium 9.6 mg/dl (8.6-10.3); Creatinine Clr Calc Pharmacy 104.7 ml/min; Est GFR (African American) 101.6 ml/min; Est GFR (Non-African American) 87.7 ml/min; Globulin 3.2 gm/dl (2.5-4.0); Potassium 4.4 mmol/L (3.5-5.1); Total Protein 7.7 gm/dl (6.0-8.3)
[2023-04-11 21:53] LABS: Basophils # (auto) 0.03 K/uL (0.00-0.20); Basophils % (auto) 0.3 %; Eosinophils # (auto) 0.03 K/uL (0.00-0.50); Eosinophils % (auto) 0.3 %; Hematocrit (blood only) 45.6 % (42.0-52.0); Hemoglobin 16.2 g/dl (14.0-18.0); Immature Granulocytes # (auto) 0.03 K/uL (0.01-0.20); Immature Granulocytes % (auto) 0.3 %; Lymphocytes # (auto) 1.51 K/uL (1.20-3.40); Lymphocytes % (auto) 15.7 %; Mean Corpuscular Hemoglobin 30.5 pg (25.0-34.0); Mean Corpuscular Hgb Conc 35.5 g/dL (32.0-36.0); Mean Corpuscular Volume 85.7 fL (80.0-100.0); Mean Platelet Volume 10.2 fL (9.4-12.4); Monocytes % (auto) 6.2 %; Neutrophils # (auto) 7.42 K/uL (1.40-6.50); Neutrophils % (auto) 77.2 %; Platelet Count 152 K/uL (130-400); RDW Coefficient of Variation 12.4 % (11.5-14.5); RDW Standard Deviation 38.5 fL (36.4-46.3); Red Blood Count 5.32 M/uL (4.70-6.10); White Blood Count 9.62 K/ul (4.8-10.8)
[2023-04-11 22:43] LABS: Appearance Urine Clear (Clear); Bilirubin Urine Negative (Negative); Blood Urine Negative (Negative); Color Urine Yellow; Glucose Urine UA Negative (Negative); Ketones Urine Negative (Negative); Leukocyte Esterase Urine Negative (Negative); Nitrite Urine Negative (Negative); Protein Urine Negative (Negative); Urobilinogen Urine Negative (Negative); pH Urine 7.5 (4.5-7.5)
[2023-04-11] MEDS: OPTIRAY 320 125ml IV ONE (23:20)
[2023-04-11] MEDS: ONDANSETRON INJ 2 MG/ML 2 ML VIAL IV STA (23:31)
[2023-04-11] MEDS: MoRPHine SULFATE 4 MG/ML 1 ML CARP\\VIAL IV STA (23:32)
[2023-04-11] MEDS: ACETAMINOPHEN 1,000 MG/100 ML VIAL IV STA (23:36)
--- NOTE | 2023-04-11 23:50 | CT Scan Report ---
Exam(s): CTA CHEST IV Amt: 117 cc opti 320 EXAM: CT Angiography Chest With Intravenous Contrast CLINICAL HISTORY: Reason for exam: PE. TECHNIQUE: Axial computed tomographic angiography images of the chest with intravenous contrast. CTDI is 28.12 mGy and DLP is 2464.86 mGy-cm. Automated exposure control was utilized for the study. A dose lowering technique was utilized adhering to the principles of ALARA. MIP reconstructed images were created and reviewed. COMPARISON: No relevant prior studies available. FINDINGS: Pulmonary arteries: Unremarkable. No acute pulmonary embolism. Aorta: No acute findings. No thoracic aortic aneurysm. Lungs: Unremarkable. No mass. No consolidation. Pleural space: Unremarkable. No significant effusion. No pneumothorax. Heart: Cardiomegaly. No significant pericardial effusion. No evidence of RV dysfunction. Bones/joints: No acute fracture. No dislocation. Soft tissues: Unremarkable. Lymph nodes: Unremarkable. No enlarged lymph nodes. Liver: Hepatic steatosis. IMPRESSION: No acute pulmonary embolism. Electronically signed by: Lux Mireles MD 04/11/23 23:49 PM
--- NOTE | 2023-04-11 23:51 | CT Scan Report ---
Exam(s): CT ABDOMEN + PELVIS With Contrast IV Amt: 117 cc opti 320 EXAM: CT Abdomen and Pelvis With Intravenous Contrast CLINICAL HISTORY: Reason for exam: mid abd pain. TECHNIQUE: Axial computed tomography images of the abdomen and pelvis with intravenous contrast. CTDI is 28.14 mGy and DLP is 2464.86 mGy-cm. Automated exposure control was utilized for the study. A dose lowering technique was utilized adhering to the principles of ALARA. CONTRAST: Patient received 117 cc opti 320 of IV contrast COMPARISON: No relevant prior studies available. FINDINGS: Lung bases: Unremarkable. No mass. No consolidation. ABDOMEN: Liver: Hepatic steatosis. Gallbladder and bile ducts: Contracted gallbladder. No calcified stones. No ductal dilation. Pancreas: Unremarkable. No mass. No ductal dilation. Spleen: Unremarkable. No splenomegaly. Adrenals: Unremarkable. No mass. Kidneys and ureters: Unremarkable. No hydronephrosis or delayed nephrogram. Stomach and bowel: Dilated small bowel measuring up to 3.6 cm, concerning for small bowel obstruction. The area of transition is in the LEFT lower quadrant on coronal image 87. This area demonstrates circumferential wall thickening. Surgical evaluation recommended. PELVIS: Appendix: No findings to suggest acute appendicitis. Bladder: Unremarkable. No mass. Reproductive: Unremarkable as visualized. ABDOMEN and PELVIS: Intraperitoneal space: Unremarkable. No free air. No significant fluid collection. Bones/joints: Degenerative changes of the spine. No acute fracture. No dislocation. Soft tissues: Unremarkable. Vasculature: Atherosclerotic changes of the aorta. No abdominal aortic aneurysm. Lymph nodes: Unremarkable. No enlarged lymph nodes. IMPRESSION: Dilated small bowel measuring up to 3.6 cm, concerning for small bowel obstruction. The area of transition is in the LEFT lower quadrant on coronal image 87. This area demonstrates circumferential wall thickening. Surgical evaluation recommended. Electronically signed by: Lux Mireles MD 04/11/23 23:50 PM
--- NOTE | 2023-04-12 00:28 | Emergency Department Note ---
History of Present Illness General Chief complaint: Abdominal Pain Stated complaint: ABDOMINAL CRAMPS/SPAZIMS, PAINFUL Time Seen by Provider: 04/11/23 22:55 History of Present Illness Maximum Pain Intensity: 8 This 62-year-old male presents the ER complaining of severe abdominal pain that radiates to his chest since 230 this afternoon steadily getting worse. He states when he was an he had abdominal surgery for twisted colon. He had a colonoscopy earlier this year and had some benign polyps. Patient denies fever, chills, vomiting, diarrhea, flulike illness. No history of small bowel obstructions. Home Medications Medication Instructions Recorded Confirmed Type cholecalciferol (vitamin D3) 25 1,000 unit PO QAM 11/27/17 04/12/23 History mcg (1,000 unit) capsule (Vitamin D3) ibuprofen 200 mg tablet 200 - 400 mg PO QID PRN Pain 11/27/17 04/12/23 History multivitamin 1 tab PO QAM 11/27/17 04/12/23 History turmeric 400 mg capsule 1 tab PO QAM 11/27/17 04/12/23 History glucosamine sulf dipot 2 cap PO DAILY 07/02/19 04/12/23 History chlr,msm,chond 550 mg-C 30 mg-gala 1 mg capsule (Glucosamine Chondroitin) rosuvastatin 10 mg tablet (Crestor) 10 mg PO QAM 07/02/19 04/12/23 History aspirin 81 mg tablet,delayed 81 mg PO QAM #30 tabs 04/13/22 04/12/23 Rx release Allergies Allergy/AdvReac Type Severity Reaction Status Date / Time No Known Allergies Allergy Verified 04/12/23 00:32 Past Med/Surg History Medical History History of COVID-19 2021- flu symptoms; resolved Obesity (BMI 30-39.9) History of anesthesia reaction VOCAL CORDS DAMAGED DURING HERNIA SURGERY Nausea and vomiting after administration of anesthetic agent Osteoarthritis Diverticular disease Hyperlipidemia Surgical History H/O arthroscopy of left knee X3 H/O arthroscopy of right knee X3 History of repair of left rotator cuff History of repair of right rotator cuff History of total left knee replacement (TKR) Hx of vasectomy History of colonoscopy H/O umbilical hernia repair History of tooth extraction WISDOM TEETH S/P LASIK surgery of both eyes Family History Mother Family history of diabetes mellitus Grandfather Family hx of colon cancer PATERNAL Grandmother Family hx of colon cancer PATERNAL Brother Family hx of colon cancer 2 BROTHERS Family history of esophageal cancer Family/Other Family hx of colon cancer PATERNAL UNCLES Social History Smoking Status: Never smoker Second Hand Exposure: Yes (BOTH PARENTS SMOKED); Do You Dip or Chew Tobacco: No; Hx Alcohol Use: Yes Alcohol type: wine and hard liquor Hx Substance Use: No Preferred Language: Lithuanian Communication Ability: Effective Industrial Engineering Technician Required: No Beliefs That Will Affect Care: None Current Living Situation: Spouse Other Information That Helps Us Care for You: No Feels Safe at Home: Yes Safety Concerns: Feels Safe At This Time Assistive Devices: None Review of Systems A total of 10 systems reviewed and were otherwise negative Physical Exam Vital Signs Vital Signs - 24 hr 04/11/23 21:11 04/11/23 23:40 Temperature 36.0 C L Temperature Source Temporal Artery Scan Pulse Rate 85 68 Respiratory Rate 19 Respiratory Effort / Characteristics Non-Labored Respiratory Depth Normal Blood Pressure 186/155 H Blood Pressure Mean 165 Pulse Oximetry 97 Oxygen Delivery Method Room Air Sepsis Recent Fever Within 48 Hours No Sepsis New/Unexplained Change in Mental Status N/A Sepsis Action Taken by Nursing No Action Required VITALS: Vitals are noted on the nurse's note and reviewed by myself. Vital signs stable. GENERAL: Pleasant gentleman who appears in pain, in no acute distress, nondiaphoretic, well-developed well-nourished. SKIN: Capillary reflex less than 2 seconds. HEENT: Normocephalic. PERRLA. EOMI. Nares patent. Mucous membranes moist. Neck is supple without nuchal rigidity. HEART: Regular rate and rhythm LUNGS: Clear to auscultation bilaterally without wheezes, rales or rhonchi. No retractions or accessory muscle use. ABDOMEN: Positive bowel sounds x 4. Normal tympanic percussion. Soft, tender mid abdomen, without masses or organomegaly. Thomas sign negative. No guarding or rebound tenderness. no CVA tenderness MUSCULOSKELETAL: No gross musculoskeletal defects. NEURO: Patient was alert and oriented to person place and time. No focal neurological deficits. Course Administered Medications Sodium Chloride (Nss) 1,000 mls @ 100 mls/hr IV .Q10H YEMI Stop: 05/12/23 02:14 Last Admin: 04/12/23 02:25 Dose: 100 mls/hr Documented By: VLADIMIR Discontinued Medications Acetaminophen (Ofirmev) 1,000 mg in 100 mls @ 400 mls/hr IV NOW STA Stop: 04/11/23 23:15 Last Infusion: 04/12/23 00:04 Dose: Infused Documented By: Admin: 04/11/23 23:36 Dose: 400 mls/hr Documented By: JASS Piperacillin Sod/Tazobactam Sod (Zosyn) 4.5 gm in 100 mls @ 200 mls/hr IV NOW STA; Protocol Stop: 04/12/23 01:25 Last Infusion: 04/12/23 01:52 Dose: Infused Documented By: Admin: 04/12/23 01:17 Dose: 200 mls/hr Documented By: BRIAN Lactated Ringer's (Lr) 1,000 mls @ 100 mls/hr IV .Q10H YEMI Stop: 05/12/23 02:06 Last Admin: 04/12/23 02:21 Dose: Not Given Documented By: VLADIMIR Ioversol (Optiray 320 125ml) 118 ml IV ONCE ONE Stop: 04/11/23 23:20 Last Admin: 04/11/23 23:20 Dose: 118 ml Documented By: YAMILA Morphine Sulfate (Morphine Sulfate 4 Mg/Ml 1 Ml Carp\Vial) 4 mg IV NOW STA Stop: 04/11/23 23:02 Last Admin: 04/11/23 23:32 Dose: 4 mg Documented By: JASS Ondansetron HCl (Ondansetron Inj 2 Mg/Ml 2 Ml Vial) 4 mg IV NOW STA Stop: 04/11/23 23:02 Last Admin: 04/11/23 23:31 Dose: 4 mg Documented By: JASS Medical Decision Making Medical Records Attestation: I reviewed the patient's medical records. Home Medications Current Medication List: was personally reviewed by md Laboratory Data Attestation: I reviewed the patient's lab results. 04/11/23 21:18 04/11/23 21:18 Lab Results 04/11/23 04/11/23 04/11/23 Range/Units 21:18 22:32 23:54 WBC 9.62 (4.8-10.8) K/ul RBC 5.32 (4.70-6.10) M/uL Hgb 16.2 (14.0-18.0) g/dl Hct 45.6 (42.0-52.0) % MCV 85.7 (80.0-100.0) fL MCH 30.5 (25.0-34.0) pg MCHC 35.5 (32.0-36.0) g/dL RDW Std Deviation 38.5 (36.4-46.3) fL RDW Coeff of Anna 12.4 (11.5-14.5) % Plt Count 152 (130-400) K/uL MPV 10.2 (9.4-12.4) fL Immature Gran % (Auto) 0.3 % Neut % (Auto) 77.2 % Lymph % (Auto) 15.7 % [place] % (Auto) 6.2 % Eos % (Auto) 0.3 % Baso % (Auto) 0.3 % Neut # (Auto) 7.42 H (1.40-6.50) K/uL Lymph # (Auto) 1.51 (1.20-3.40) K/uL [place] # (Auto) 0.60 H (0.11-0.59) K/uL Eos # (Auto) 0.03 (0.00-0.50) K/uL Baso # (Auto) 0.03 (0.00-0.20) K/uL Immature Gran # (Auto) 0.03 (0.01-0.20) K/uL Sodium 137 (136-145) mmol/L Potassium 4.4 (3.5-5.1) mmol/L Chloride 102 (98-107) mmol/L Carbon Dioxide 28 (21-32) mmol/L Anion Gap 7 (3-11) BUN 18 (6-23) mg/dl Creatinine 0.93 (0.6-1.4) mg/dl Est Cr Clr Drug Dosing 104.7 ml/min Est GFR ( Amer) 101.6 ml/min Est GFR (Non-Af Amer) 87.7 ml/min BUN/Creatinine Ratio 19.4 (10-20) Glucose 132 H (70-99(Fasting)) mg/dl Calcium 9.6 (8.6-10.3) mg/dl Total Bilirubin 1.4 H (0.2-1.0) mg/dl AST 14 (13-39) U/L ALT 20 (7-52) U/L Alkaline Phosphatase 66 (34-104) U/L Troponin I High Sens 2.9 (0-20) pg/ml Total Protein 7.7 (6.0-8.3) gm/dl Albumin 4.5 (3.4-5.0) gm/dl Globulin 3.2 (2.5-4.0) gm/dl Albumin/Globulin Ratio 1.4 (0.9-2) Lipase 24 (11-82) U/L Urine Color Yellow Urine Appearance Clear (Clear) Urine pH 7.5 (4.5-7.5) Ur Specific [place] 1.020 (1.000-1.030) Urine Protein Negative (Negative) Urine Glucose (UA) Negative (Negative) Urine Ketones Negative (Negative) Urine Blood Negative (Negative) Urine Nitrite Negative (Negative) Urine Bilirubin Negative (Negative) Urine Urobilinogen Negative (Negative) Ur Leukocyte Esterase Negative (Negative) Imaging Data Attestation: I personally reviewed and interpreted this imaging study as follows: Radiologist's Impression: Abdomen/Pelvis CT 04/11/23 23:01 Exam(s): CT ABDOMEN + PELVIS With Contrast IV Amt: 117 cc opti 320 EXAM: CT Abdomen and Pelvis With Intravenous Contrast CLINICAL HISTORY: Reason for exam: mid abd pain. TECHNIQUE: Axial computed tomography images of the abdomen and pelvis with intravenous contrast. CTDI is 28.14 mGy and DLP is 2464.86 mGy-cm. Automated exposure control was utilized for the study. A dose lowering technique was utilized adhering to the principles of ALARA. CONTRAST: Patient received 117 cc opti 320 of IV contrast COMPARISON: No relevant prior studies available. FINDINGS: Lung bases: Unremarkable. No mass. No consolidation. ABDOMEN: Liver: Hepatic steatosis. Gallbladder and bile ducts: Contracted gallbladder. No calcified stones. No ductal dilation. Pancreas: Unremarkable. No mass. No ductal dilation. Spleen: Unremarkable. No splenomegaly. Adrenals: Unremarkable. No mass. Kidneys and ureters: Unremarkable. No hydronephrosis or delayed nephrogram. Stomach and bowel: Dilated small bowel measuring up to 3.6 cm, concerning for small bowel obstruction. The area of transition is in the LEFT lower quadrant on coronal image 87. This area demonstrates circumferential wall thickening. Surgical evaluation recommended. PELVIS: Appendix: No findings to suggest acute appendicitis. Bladder: Unremarkable. No mass. Reproductive: Unremarkable as visualized. ABDOMEN and PELVIS: Intraperitoneal space: Unremarkable. No free air. No significant fluid collection. Bones/joints: Degenerative changes of the spine. No acute fracture. No dislocation. Soft tissues: Unremarkable. Vasculature: Atherosclerotic changes of the aorta. No abdominal aortic aneurysm. Lymph nodes: Unremarkable. No enlarged lymph nodes. IMPRESSION: Dilated small bowel measuring up to 3.6 cm, concerning for small bowel obstruction. The area of transition is in the LEFT lower quadrant on coronal image 87. This area demonstrates circumferential wall thickening. Surgical evaluation recommended. Electronically signed by: Lux Mireles MD 04/11/23 23:50 PM Chest CTA 04/11/23 23:01 Exam(s): CTA CHEST IV Amt: 117 cc opti 320 EXAM: CT Angiography Chest With Intravenous Contrast CLINICAL HISTORY: Reason for exam: PE. TECHNIQUE: Axial computed tomographic angiography images of the chest with intravenous contrast. CTDI is 28.12 mGy and DLP is 2464.86 mGy-cm. Automated exposure control was utilized for the study. A dose lowering technique was utilized adhering to the principles of ALARA. MIP reconstructed images were created and reviewed. COMPARISON: No relevant prior studies available. FINDINGS: Pulmonary arteries: Unremarkable. No acute pulmonary embolism. Aorta: No acute findings. No thoracic aortic aneurysm. Lungs: Unremarkable. No mass. No consolidation. Pleural space: Unremarkable. No significant effusion. No pneumothorax. Heart: Cardiomegaly. No significant pericardial effusion. No evidence of RV dysfunction. Bones/joints: No acute fracture. No dislocation. Soft tissues: Unremarkable. Lymph nodes: Unremarkable. No enlarged lymph nodes. Liver: Hepatic steatosis. IMPRESSION: No acute pulmonary embolism. Electronically signed by: Lux Mireles MD 04/11/23 23:49 PM [facility] Narrative Prior records/ancillary studies reviewed. Triage Nursing notes reviewed. Additional history obtained from family. The patient's history was concerning for abdominal pain. Differential diagnosis: Etiologies such as appendicitis, diverticulitis, PUD, biliary pathology, UTI, pancreatitis, obstruction, mesenteric ischemia, aortic pathology, infections, inflammatory bowel disease, renal colic, as well as others were entertained. Physical examination findings: As above. ER treatment provided: An order was placed for continuous cardiac monitoring. The monitor shows a rate of 60-100 with a sinus rhythm per my Independent interpretation. IV fluids, Zofran morphine and Tylenol ordered On reassessment the patient felt better. Diagnostics interpreted by me: ECG: Ordered for upper abdominal pain EKG: Normal sinus, normal intervals, no acute ST-T wave changes. Impression normal sinus rhythm independently interpreted by myself I think arrhythmia is unlikely. EKG shows normal sinus rhythm with no interval abnormalities such as QT prolongation or WPW. There are no findings to suggest Brugada syndrome. Cardiac monitoring in the emergency department reveals no tachycardic or bradycardic dysrhythmia. Hypertrophic cardiomyopathy was considered but there are no clear historical elements pointing toward this. EKG is not suggestive. The QRS voltage is not extremely large and there are no suggestive Q waves. The labs Independently Interpreted by myself revealed no worrisome leukocytosis, stable H&H, hyperglycemia without DKA Imaging studies: Chest x-ray with no acute consolidation, pneumothorax or free air per my independent CTs reviewed by myself and read by radiology as above. Patient has a small bowel obstruction Consultation: A consultation was placed with the surgical midlevel. The case was discussed and diagnostics were reviewed. The patient was evaluated in the ER for further treatment. Medicine is consulted and the case was discussed. Patient was admitted to the medical service for further evaluation and treatment for the small bowel obstruction. Exam and history seem consistent with small bowel obstruction. Medicine and surgery were consulted and the case was discussed. Patient admitted to the medical service. He was not vomiting. No NG tube was placed then. CTA was negative. EKG is nonischemic. Patient is agreeable treatment plan of admission. By the evaluation outlined above emergent etiologies such as appendicitis, diverticulitis, PUD, biliary pathology, UTI, pancreatitis, mesenteric ischemia, aortic pathology, infections, inflammatory bowel disease, renal colic, as well as others were deemed relatively unlikely. The pt informed about the findings as listed above. All questions were answered and pleased with the treatment. The chart was completed utilizing [employer] voice recognition software. Grammatical errors, random word insertions, pronoun errors, and incomplete sentences are an occassional consequence of this system due to software limitations, ambient noise, and hardware issues. Any formal questions or concerns about the content, text, or information contained within the body of this dictation should be directly addressed to the physician sales operations assistant for clarification. Impression & Plan SBO (small bowel obstruction) Discharge Plan Visit Data Chief Complaint: Abdominal Pain Stated Complaint: ABDOMINAL CRAMPS/SPAZIMS, PAINFUL ED Provider: Isabella Hurst ED Midlevel Provider: Iveth Soto Discharge Problem: SBO (small bowel obstruction) Patient Disposition: Admitted As Inpatient Condition: Good Discharge Instructions Interventions: ED Discharge Assessment Last Done: 04/12/23 01:35
--- NOTE | 2023-04-12 00:48 | History & Physical Report ---
Date of Service April 12, 2023 Assessment & Plan (1) SBO (small bowel obstruction): (2) Incarcerated umbilical hernia: (3) Hyperlipidemia: (4) Hypertension: Plan Small bowel obstruction- CT notes transition point in left lower quadrant NPO From the ED received the following: Tylenol 1 g IV, morphine sulfate 4 mg IV and Zofran 4 mg IV LR at 100 mL/h Acetaminophen 1 g IV every 8 hours as needed for mild pain or fever Toradol 15 mg IV every 6 hours as needed for moderate pain Morphine sulfate 4 mg IV every 3 hours as needed for severe pain Zofran 4 mg IV every 6 hours as needed Zosyn 4.5 g IV every 8 hours Follow serial CBC with differential and chemistry profile General surgery consulted and saw the patient while in the ED Hypertension- Blood pressure somewhat elevated, in part likely due to abdominal pain Plan to control abdominal pain with medications as above Hydralazine 10 mg IV every 4 hours as needed for systolic blood pressure greater than 160 Hyperglycemia- Glucose 132 on admission If glucose is elevated in the morning, would start Accu-Cheks at that time History of Present Illness Chief Complaint: The patient presents to the emergency department with complaint of acute onset a round 2:00 this afternoon of severe abdominal pain and spasms, nausea without vomiting and generalized fatigue. Primary Care Provider: Jovi Bacon MD The patient is a 62-year-old male with a past medical history including incarcerated umbilical hernia, surgery for twisted colon as an , hypertensive urgency, hyperlipidemia, osteoarthritis, and had a colonoscopy earlier in the year with removal of benign polyps. He presented to the emergency department with acute onset of abdominal pain, spasms, nausea without vomiting and generalized fatigue. He reports no previous occurrence of the symptoms. He denied any recent change in liquid or food intake. Allergies Allergy/AdvReac Type Severity Reaction Status Date / Time No Known Allergies Allergy Verified 04/12/23 00:32 Home Medications Medication Instructions Recorded Confirmed Type cholecalciferol (vitamin D3) 25 1,000 unit PO QAM 11/27/17 04/12/23 History mcg (1,000 unit) capsule (Vitamin D3) ibuprofen 200 mg tablet 200 - 400 mg PO QID PRN Pain 11/27/17 04/12/23 History multivitamin 1 tab PO QAM 11/27/17 04/12/23 History turmeric 400 mg capsule 1 tab PO QAM 11/27/17 04/12/23 History glucosamine sulf dipot 2 cap PO DAILY 07/02/19 04/12/23 History chlr,msm,chond 550 mg-C 30 mg-gala 1 mg capsule (Glucosamine Chondroitin) rosuvastatin 10 mg tablet (Crestor) 10 mg PO QAM 07/02/19 04/12/23 History aspirin 81 mg tablet,delayed 81 mg PO QAM #30 tabs 04/13/22 04/12/23 Rx release Past Med/Surg History Medical History (Updated 04/12/23 @ 05:04 by Neal Elkins MD) Hypertension History of COVID-2021- flu symptoms; resolved Obesity (BMI 30-39.9) History of anesthesia reaction VOCAL CORDS DAMAGED DURING HERNIA SURGERY Nausea and vomiting after administration of anesthetic agent Osteoarthritis Diverticular disease Hyperlipidemia Surgical History H/O arthroscopy of left knee X3 H/O arthroscopy of right knee X3 History of repair of left rotator cuff History of repair of right rotator cuff History of total left knee replacement (TKR) Hx of vasectomy History of colonoscopy H/O umbilical hernia repair History of tooth extraction WISDOM TEETH S/P LASIK surgery of both eyes Family History Mother Family history of diabetes mellitus Grandfather Family hx of colon cancer PATERNAL Grandmother Family hx of colon cancer PATERNAL Brother Family hx of colon cancer 2 BROTHERS Family history of esophageal cancer Family/Other Family hx of colon cancer PATERNAL UNCLES Social History Smoking Status: Never smoker Second Hand Exposure: Yes (BOTH PARENTS SMOKED); Do You Dip or Chew Tobacco: No; Hx Alcohol Use: Yes Alcohol type: wine and hard liquor Hx Substance Use: No Preferred Language: [place] Communication Ability: Effective Product Development Actuary Required: No Beliefs That Will Affect Care: None Current Living Situation: Spouse Other Information That Helps Us Care for You: No Feels Safe at Home: Yes Safety Concerns: Feels Safe At This Time Assistive Devices: None Review of Systems Review of Systems: The patient denies chest pain, palpitations, shortness of breath, dyspnea on exertion, cough, lower extremity swelling, sore throat, fevers, chills, sweats, vomiting, diarrhea , constipation, blood in urine or stool, dysuria, urinary frequency or urgency, lightheadedness, dizziness, headache, memory loss, loss of consciousness, rash, abnormal bruising or bleeding, imbalance, focal or generalized weakness, numbness or tingling in arms or legs, generalized arthralgias or myalgias, back or neck pain, or night sweats. The review of systems is otherwise negative other than for that already noted above, and at least 10 systems have been reviewed. Physical Exam Physical Exam: The patient is awake, alert and oriented 3, well developed and well nourished, normocephalic and atraumatic, lying in bed and in intermittent abdominal distress. HEENT--PERRL, EOMI, mucous membranes and oropharynx mildly dry. Neck--supple. No JVD. No bruits. Thyroid normal, trachea midline, no adenopathy. Heart--normal S1 and S2. No murmurs, rubs or gallops. Lungs--clear bilaterally, no respiratory distress, no accessory muscle use. Abdomen--decreased bowel sounds, mildly distended, generalized discomfort Extremities--no cyanosis or clubbing. No edema. Dermatologic--normal skin turgor, normal color, no abnormal lymph nodes, no rash. Neurologic--cranial nerves II through XII grossly intact. Rheumatologic--normal range of motion. Psychiatric--normal affect. Results & Data Results & Data Vital Signs (Past 12 Hours) Vital Signs Temp Pulse Resp BP Pulse Ox O2 Del Method 04/11/23 23:40 68 04/11/23 21:11 36.0 C L 85 19 186/155 H 97 Room Air Laboratory Results Laboratory Results WBC 9.62 K/ul (4.8-10.8) 04/11/23 21:18 RBC 5.32 M/uL (4.70-6.10) 04/11/23 21:18 Hgb 16.2 g/dl (14.0-18.0) 04/11/23 21:18 Hct 45.6 % (42.0-52.0) 04/11/23 21:18 MCV 85.7 fL (80.0-100.0) 04/11/23 21:18 MCH 30.5 pg (25.0-34.0) 04/11/23 21:18 MCHC 35.5 g/dL (32.0-36.0) 04/11/23 21:18 RDW Std Deviation 38.5 fL (36.4-46.3) 04/11/23 21:18 RDW Coeff of Anna 12.4 % (11.5-14.5) 04/11/23 21:18 Plt Count 152 K/uL (130-400) 04/11/23 21:18 MPV 10.2 fL (9.4-12.4) 04/11/23 21:18 Immature Gran % (Auto) 0.3 % 04/11/23 21:18 Neut % (Auto) 77.2 % 04/11/23 21:18 Lymph % (Auto) 15.7 % 04/11/23 21:18 Prentiss % (Auto) 6.2 % 04/11/23 21:18 Eos % (Auto) 0.3 % 04/11/23 21:18 Baso % (Auto) 0.3 % 04/11/23 21:18 Neut # (Auto) 7.42 K/uL (1.40-6.50) H 04/11/23 21:18 Lymph # (Auto) 1.51 K/uL (1.20-3.40) 04/11/23 21:18 Prentiss # (Auto) 0.60 K/uL (0.11-0.59) H 04/11/23 21:18 Eos # (Auto) 0.03 K/uL (0.00-0.50) 04/11/23 21:18 Baso # (Auto) 0.03 K/uL (0.00-0.20) 04/11/23 21:18 Immature Gran # (Auto) 0.03 K/uL (0.01-0.20) 04/11/23 21:18 Sodium 137 mmol/L (136-145) 04/11/23 21:18 Potassium 4.4 mmol/L (3.5-5.1) 04/11/23 21:18 Chloride 102 mmol/L (98-107) 04/11/23 21:18 Carbon Dioxide 28 mmol/L (21-32) 04/11/23 21:18 Anion Gap 7 (3-11) 04/11/23 21:18 BUN 18 mg/dl (6-23) 04/11/23 21:18 Creatinine 0.93 mg/dl (0.6-1.4) 04/11/23 21:18 Est Cr Clr Drug Dosing 104.7 ml/min 04/11/23 21:18 Est GFR ( Amer) 101.6 ml/min 04/11/23 21:18 Est GFR (Non-Af Amer) 87.7 ml/min 04/11/23 21:18 BUN/Creatinine Ratio 19.4 (10-20) 04/11/23 21:18 Glucose 132 mg/dl (70-99(Fasting)) H 04/11/23 21:18 Calcium 9.6 mg/dl (8.6-10.3) 04/11/23 21:18 Total Bilirubin 1.4 mg/dl (0.2-1.0) H 04/11/23 21:18 AST 14 U/L (13-39) 04/11/23 21:18 ALT 20 U/L (7-52) 04/11/23 21:18 Alkaline Phosphatase 66 U/L (34-104) 04/11/23 21:18 Troponin I High Sens 2.9 pg/ml (0-20) 04/11/23 23:54 Total Protein 7.7 gm/dl (6.0-8.3) 04/11/23 21:18 Albumin 4.5 gm/dl (3.4-5.0) 04/11/23 21:18 Globulin 3.2 gm/dl (2.5-4.0) 04/11/23 21:18 Albumin/Globulin Ratio 1.4 (0.9-2) 04/11/23 21:18 Lipase 24 U/L (11-82) 04/11/23 21:18 Urine Color Yellow 04/11/23 22:32 Urine Appearance Clear (Clear) 04/11/23 22:32 Urine pH 7.5 (4.5-7.5) 04/11/23 22:32 Ur Specific [place] 1.020 (1.000-1.030) 04/11/23 22:32 Urine Protein Negative (Negative) 04/11/23 22:32 Urine Glucose (UA) Negative (Negative) 04/11/23 22:32 Urine Ketones Negative (Negative) 04/11/23 22:32 Urine Blood Negative (Negative) 04/11/23 22:32 Urine Nitrite Negative (Negative) 04/11/23 22:32 Urine Bilirubin Negative (Negative) 04/11/23 22:32 Urine Urobilinogen Negative (Negative) 04/11/23 22:32 Ur Leukocyte Esterase Negative (Negative) 04/11/23 22:32 Impressions Abdomen/Pelvis CT 04/11/23 23:01 Exam(s): CT ABDOMEN + PELVIS With Contrast IV Amt: 117 cc opti 320 EXAM: CT Abdomen and Pelvis With Intravenous Contrast CLINICAL HISTORY: Reason for exam: mid abd pain. TECHNIQUE: Axial computed tomography images of the abdomen and pelvis with intravenous contrast. CTDI is 28.14 mGy and DLP is 2464.86 mGy-cm. Automated exposure control was utilized for the study. A dose lowering technique was utilized adhering to the principles of ALARA. CONTRAST: Patient received 117 cc opti 320 of IV contrast COMPARISON: No relevant prior studies available. FINDINGS: Lung bases: Unremarkable. No mass. No consolidation. ABDOMEN: Liver: Hepatic steatosis. Gallbladder and bile ducts: Contracted gallbladder. No calcified stones. No ductal dilation. Pancreas: Unremarkable. No mass. No ductal dilation. Spleen: Unremarkable. No splenomegaly. Adrenals: Unremarkable. No mass. Kidneys and ureters: Unremarkable. No hydronephrosis or delayed nephrogram. Stomach and bowel: Dilated small bowel measuring up to 3.6 cm, concerning for small bowel obstruction. The area of transition is in the LEFT lower quadrant on coronal image 87. This area demonstrates circumferential wall thickening. Surgical evaluation recommended. PELVIS: Appendix: No findings to suggest acute appendicitis. Bladder: Unremarkable. No mass. Reproductive: Unremarkable as visualized. ABDOMEN and PELVIS: Intraperitoneal space: Unremarkable. No free air. No significant fluid collection. Bones/joints: Degenerative changes of the spine. No acute fracture. No dislocation. Soft tissues: Unremarkable. Vasculature: Atherosclerotic changes of the aorta. No abdominal aortic aneurysm. Lymph nodes: Unremarkable. No enlarged lymph nodes. IMPRESSION: Dilated small bowel measuring up to 3.6 cm, concerning for small bowel obstruction. The area of transition is in the LEFT lower quadrant on coronal image 87. This area demonstrates circumferential wall thickening. Surgical evaluation recommended. Electronically signed by: Lux Mireles MD 04/11/23 23:50 PM Chest CTA 04/11/23 23:01 Exam(s): CTA CHEST IV Amt: 117 cc opti 320 EXAM: CT Angiography Chest With Intravenous Contrast CLINICAL HISTORY: Reason for exam: PE. TECHNIQUE: Axial computed tomographic angiography images of the chest with intravenous contrast. CTDI is 28.12 mGy and DLP is 2464.86 mGy-cm. Automated exposure control was utilized for the study. A dose lowering technique was utilized adhering to the principles of ALARA. MIP reconstructed images were created and reviewed. COMPARISON: No relevant prior studies available. FINDINGS: Pulmonary arteries: Unremarkable. No acute pulmonary embolism. Aorta: No acute findings. No thoracic aortic aneurysm. Lungs: Unremarkable. No mass. No consolidation. Pleural space: Unremarkable. No significant effusion. No pneumothorax. Heart: Cardiomegaly. No significant pericardial effusion. No evidence of RV dysfunction. Bones/joints: No acute fracture. No dislocation. Soft tissues: Unremarkable. Lymph nodes: Unremarkable. No enlarged lymph nodes. Liver: Hepatic steatosis. IMPRESSION: No acute pulmonary embolism. Electronically signed by: Lux Mireles MD 04/11/23 23:49 PM Code Status & VTE Plan Code Status Full code VTE Prophylaxis Plan VTE Prophylaxis will be ordered: Yes PG Care Time/CCT Total # of Minutes Spent Total Time Spent with Patient: Total time spent is greater than 50% in coordination of care (as documented) at patient's floor/unit and/or counseling patient: Coding Level of Care Code 42553 INT INP/OBS CARE 3/75MIN Diagnoses SBO (small bowel obstruction) K56.609 Incarcerated umbilical hernia K42.0 Hyperlipidemia E78.5 Hypertension I10
--- NOTE | 2023-04-12 00:58 | Surgery Consultation ---
<Statement entered by Terrell Joshi DO - 04/12/23 03:06> This case was discussed with the surgical PA, I agree with this plan Date of Consultation April 12, 2023 Assessment & Plan (1) SBO (small bowel obstruction): I discussed with the treating emergency room physician and the patient is being admitted on the hospital service. From surgical perspective we recommend the following: Implement n.p.o. status Provide analgesics provide antiemetics Provide IV fluid for hydration Follow serial labs Follow serial physical exams At the present time patient's abdomen is nonrigid and nondistended. The patient also has also not had any emesis therefore I think we can hold on placing an NG tube at this time. I did discuss with the patient that if his abdominal exam worsens or if he has any nausea or vomiting that ensues we may need to rethink this modality. At the present time the patient is noted to be normotensive without tachycardia or fever. He also does not have leukocytosis or acute kidney injury. Additional recommendations to be forthcoming based on his clinical course as unfolds History of Present Illness Reason for Consultation: Small bowel obstruction History of Present Illness This is a 62-year-old male who presented the emergency department secondary to abdominal pain. The patient says at approximate 2:30 PM on 04/11/2023 he developed some generalized abdominal cramping. He denies any nausea or vomiting. He has also not had any fevers, shakes, or chills. He reports that he had a normal bowel movement earlier today prior to his abdominal cramping beginning but since his symptomatology began he has not been able to pass any flatus. He denies any provocative factors to his symptomatology but he does note that his symptoms were improved with administration of pain medicines in the emergency department. 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 Patient notes that he has never had a small bowel obstruction in the past. Patient also reports that he has had a colonoscopy in the past. This was performed in November 2022. The patient did have multiple polyps from the sigmoid colon removed and he also had a polypoid lesion at the ileocecal valve biopsied as well. Pathology from the sigmoid polyps revealed 1 tubular adenoma and 3 hyperplastic polyps. The ileocecal valve biopsy showed no diagnostic abnormalities on pathology. Since arrival to hospital the patient has had labs and imaging that independently reviewed. CT scan of the chest showed no evidence of pulmonary emboli. Patient also had a CT scan of the abdomen pelvis. This showed the patient had dilated small bowel measuring up to 3.6 cm concerning for small bowel obstruction with an area of transition in the left lower quadrant. There is no intraperitoneal free air or or intraperitoneal free fluid. Labs include a CBC her white blood cell count, hemoglobin, hematocrit, platelet count were all normal. Chemistry profile showed sodium and potassium along with the BUN and creatinine were normal. Patient had a slight elevation of his total bilirubin 1.4 but his LFTs were otherwise on remarkable. His lipase was nonelevated and urinalysis is not indicative of infection. At the time my interview the patient was resting comfortably bed he was in no distress. Allergies Allergy/AdvReac Type Severity Reaction Status Date / Time No Known Allergies Allergy Verified 04/12/23 00:32 Home Medications Medication Instructions Recorded Confirmed Type cholecalciferol (vitamin D3) 25 1,000 unit PO QAM 11/27/17 04/12/23 History mcg (1,000 unit) capsule (Vitamin D3) ibuprofen 200 mg tablet 200 - 400 mg PO QID PRN Pain 11/27/17 04/12/23 History multivitamin 1 tab PO QAM 11/27/17 04/12/23 History turmeric 400 mg capsule 1 tab PO QAM 11/27/17 04/12/23 History glucosamine sulf dipot 2 cap PO DAILY 07/02/19 04/12/23 History chlr,msm,chond 550 mg-C 30 mg-gala 1 mg capsule (Glucosamine Chondroitin) rosuvastatin 10 mg tablet (Crestor) 10 mg PO QAM 07/02/19 04/12/23 History aspirin 81 mg tablet,delayed 81 mg PO QAM #30 tabs 04/13/22 04/12/23 Rx release Patient History Medical History History of COVID-19 2021- flu symptoms; resolved Obesity (BMI 30-39.9) History of anesthesia reaction VOCAL CORDS DAMAGED DURING HERNIA SURGERY Nausea and vomiting after administration of anesthetic agent Osteoarthritis Diverticular disease Hyperlipidemia Surgical History H/O arthroscopy of left knee X3 H/O arthroscopy of right knee X3 History of repair of left rotator cuff History of repair of right rotator cuff History of total left knee replacement (TKR) Hx of vasectomy History of colonoscopy H/O umbilical hernia repair History of tooth extraction WISDOM TEETH S/P LASIK surgery of both eyes Family History Mother Family history of diabetes mellitus Grandfather Family hx of colon cancer PATERNAL Grandmother Family hx of colon cancer PATERNAL Brother Family hx of colon cancer 2 BROTHERS Family history of esophageal cancer Family/Other Family hx of colon cancer PATERNAL UNCLES Social History Smoking Status: Never smoker Second Hand Exposure: Yes (BOTH PARENTS SMOKED); Do You Dip or Chew Tobacco: No; Hx Alcohol Use: Yes Alcohol type: beer and wine Hx Substance Use: No Preferred Language: [place] Communication Ability: Effective Audio/Video Technician Required: No Beliefs That Will Affect Care: None Current Living Situation: Spouse and Family Feels Safe at Home: Yes Assistive Devices: Glasses Review of Systems Constitutional: no fever and no chills Ear, Nose, Mouth, Throat: no ear pain Respiratory: no cough and no dyspnea Cardiovascular: no chest pain Gastrointestinal: as per Subjective / HPI Genitourinary: no dysuria Musculoskeletal: no back pain Integumentary: no rash Neurologic: no localized weakness Physical Exam Constitutional: WD/WN, vitals as above Eyes: no conjunctival abnormality ENMT: Ears: no hearing impairment and no external ear abnormality Mouth: no oropharynx abnormality Neck: trachea midline Respiratory: normal respiratory effort; no respiratory distress and no labored breathing Cardiovascular: Rate/Rhythm: regular rate and regular rhythm Gastrointestinal (Abdomen): Abdomen is soft and nonrigid. Minimal distention is noted. There is no rebound tenderness or guarding. Patient did have some pain with palpation to the left of the umbilicus. Bowel sounds are present but hypoactive Musculoskeletal: No calf tenderness Skin: no rashes Neurologic: moves all extremities Psychiatric: A+Ox3, euthymic affect Results & Data Vital Signs (Past 12 Hours) Vital Signs Temp Pulse Resp BP Pulse Ox O2 Del Method 02/07/24 23:40 68 04/11/23 21:11 36.0 C L 85 19 186/155 H 97 Room Air PG Care Time/CCT Total # of Minutes Spent Total Time Spent with Patient: Total time spent is greater than 50% in coordination of care (as documented) at patient's floor/unit and/or counseling patient: Coding Level of Care Code 76794 IN/OBS CONSULT LVL 5,80M Diagnoses SBO (small bowel obstruction) K56.609
[2023-04-12] MEDS ORDERED: hydrALAZINE HCL 20 MG/ML VIAL IV PRN ×2 (01:07→08:10)
[2023-04-12] MEDS: PIPERACILLIN/TAZOBACTAM 4.5 GM/100 ML BAG IV STA (01:17)
[2023-04-12] MEDS: LACTATED RINGER'S 1,000 ML IV SCH (02:21)
[2023-04-12] MEDS: SODIUM CHLORIDE 0.9% 1,000 ML IV SCH (02:25)
[2023-04-12] MEDS: MoRPHine SULFATE 4 MG/ML 1 ML CARP\\VIAL IV PRN (05:01)
--- OUTSIDE RECORDS SUMMARY | 2023-04-12 07:18 | External Medical Summary | Continuity of Care Document ---
Author Name Unknown Organization [facility] [address] [place] [address] [place] [id number] Care Team Providers Care Ring Facer Name Role Phone Jovi Bacon Primary Care Physician [phone] [phone] Date(s): 10/20/22 - 10/20/22 [facility] [address] Practice Site [address] [id number] [phone] Encounter Diagnosis Seborrheic keratosis(Discharge Diagnosis) - 10/20/22 Right inguinal hernia(Discharge Diagnosis) - 10/20/22 Sebaceous cyst(Discharge Diagnosis) - 10/20/22 Vision changes(Discharge Diagnosis) - 10/20/22 Cutaneous skin tags(Discharge Diagnosis) - 10/22/22 Discharge Disposition: Home or Self Care Attending Physician: MD Jerome [place] Allergies, Adverse Reactions, Alerts No Known Medication Allergies Substance Reaction Severity Status Bee stings swellling Active Immunizations Given and Recorded Vaccine Date Status Refusal Reason influenza virus vaccine, inactivated 11/21/19 Give n influenza virus vaccine, inactivated 12/04/18 Give n influenza virus vaccine, inactivated 11/17/17 Roel rded influenza virus vaccine, inactivated 11/22/16 Give n influenza virus vaccine, inactivated 11/22/15 Give n influenza virus vaccine, inactivated 12/01/13 Give n tetanus/diphtheria/pertuss, acel (Tdap) 08/12/12 R ecorded Medications aspirin 81 mg oral delayed release tablet Start: 04/13/22 15:23:00 EST, 1 tab, PO, Daily Start Date: 04/13/22 Status: Ordered Chondroitin-Glucosamine Start: 07/04/19 16:02:00 EDT Start Date: 5/1/20 Status: Ordered cinnamon Start: 11/22/15 9:18:00, See Instructions, 2 tabs daily, not sure of the mg Start Date: 11/22/15 Status: Ordered garlic oral tablet Start: 12/07/17 8:48:00 EDT, See Instructions, 1 tablet po daily Start Date: 12/07/17 Status: Ordered Immune plus Start: 04/14/22 10:58:00 EST, Immune plus, See Instructions, 1 tablet daily Start Date: 04/14/22 Status: Ordered multivitamin Start: 09/09/13 10:48:00, 1 tab, PO, Daily Start Date: 09/09/13 Status: Ordered rosuvastatin 10 mg oral tablet Start: 08/30/22 17:34:00 EDT, See Instructions, Disp# 90 tab, Refills: 0, TAKE 1 TABLET BY MOUTH DAILY., Pharmacy: [facility] Start Date: 08/30/22 Status: Ordered Shingrix intramuscular injection Start: 04/19/22 12:37:00 EST, 0.5 mL, IM, ONCE, Disp# 1 each, [facility]: [id number] Start Date: 04/19/22 Status: Ordered Tylenol Start: 11/22/16 9:09:00, 500 mg =, PO, qhs, alternates with ibuprofen Start Date: 11/22/16 Status: Ordered unknown medication Start: 04/30/13 11:08:00, Tumeric-1 tab PO Daily Start Date: 04/30/13 Status: Ordered unlisted medication Start: 10/02/14 7:58:00, promegranate 1 tab/dose unknown po daily Start Date: 10/02/14 Status: Ordered Vitamin C 1000 mg oral tablet Start: 01/28/14 13:08:00, 1 tab, PO, Daily Start Date: 01/28/14 Status: Ordered Vitamin D3 Start: 11/22/15 9:17:00, See Instructions, takes 1 tablet daily, not sure of the mg Start Date: 11/22/15 Status: Ordered Mental Status 10/20/22 Barriers to Learning one year None evide nt Mandatory Health Literacy Documentation Yes Health Literacy Communication Barriers N ever Primary Language Armenian Problem List Condition Confirmation Course Effective Dates Status H ealth Status Informant Tarsal tunnel syndrome, bilateral Confirmed Active Choking Confirmed Active Headache Confirmed Active Hyperlipidemia Confirmed Active Impaired fasting glucose Confirmed Active Knee pain 1 Confirmed Active Obesity Confirmed Active Plantar fasciitis Confirmed Active Thrombocytopenia Confirmed Active Colon polyp Confirmed Active Weight disorder Confirmed Active 1s/p left knee TKR in 05/2016 Diagnosis Diagnosis Type Effective Dates Health Status Clinical Service Informant Seborrheic keratosis Discharge Diagnosis 10/20/22 Sebaceous cyst Discharge Diagnosis 10/20/22 Vision changes Discharge Diagnosis 10/20/22 Right inguinal hernia Discharge Diagnosis 10/20/22 Cutaneous skin tags Discharge Diagnosis 10/22/22 Procedures Procedure Date Related Diagnosis Body Site Status Ultrasound treatment to abdomen 1 08/10/22 Completed Chest angiography 2 04/12/22 Compl eted Chest X-ray 3 04/12/[address] angiography of head with contrast 4 04/12/[address] of head 5 04/12/22 Completed Magnetic resonance angiogram of neck without contrast 6 04/12/22 Completed MRI of brain w/o contrast 7 03/18/21 Completed Colonoscopy 8 11/30/17 Completed Repair of umbilical hernia 9, 10 06/21/17 Completed CXR - Chest X-ray 11 06/19/[address] of abdomen and pelvis wit h oral contrast 12 06/18/17 Completed Left Knee arthroplasty 13, 14 05/12/16 Completed Left total knee arthoplasty 15 05/12/16 Completed Chest x-ray 16 04/11/16 Completed MRI-Brain 17 06/23/15 Completed Knee replacement 2015 Compl eted Procedure 19 08/20/14 Completed Surgery 08/20/14 Completed Colonoscopy 20 03/13/14 Completed bowel sugery 21 Completed Knee surgery Completed Shoulder surgery Complete d 1Impression: Small right inguinal hernia. 2Impression: No thoracic aortic aneurysm or dissection. Cardiomegaly with moderate coronary artery calcifications. Mild hepatic steatosis. 3Impression: No significant change compared to the prior study. No acute process. 4Impression: No central vessel occlusion. No intracranial aneurysm 5Impression: No acute intracranial findings. 6Impression: Unremarkable CTA of neck 7Impression: 1. No acute intracranel findings. 2. Unremarkable unenhanced MRI of the brain. 8normal 9Final diagnosis: A. Hernia sac, umbilical, herniography: benign appearing adipose tissue present. B. Muscle, Left rectus, Hematoma, biopsy: benign appearing skeletal muscle and clotted blood consistent with history of hematoma. 10Incarcerated umbilical hernia with left rectus muscle hematoma - Promise Narvaez 11No active disease in chest. 12Impression: 1. Mild hepatic steatosis. 2. No evidence of bowel obstruction. 3. Normal appendix. 4. No evidence of acute diverticulitis. 5. Tiny fat-containing umbilical hernia. 13final diagnosis: Degenerative joint disease involving the articular ccartilage. Marginal osteophytes noted. Synovium/soft tissue: no significant inflammation identified. 14Biomedical hardware, left knee, explant removal: biomedical hardware removal. 15left knee TKR 16Impression: negative chest 17Unremarkable unenhanced MRI of the brain 18Left knee 19Procedure: Diagnostic arthroscopy with limited debridement, acromioplasty, rotator cuff repair and open subpectoral biceps tenodesis. 20Two 4-5cmm polyps in the descending colon. Resected and retrieved. One 4mm polyp at the recto-sigmoid colon. Resected and retrieved. 21at age 2 weeks old Vital Signs Most recent to oldest [Reference Range]: 1 Patient Weight 114.0 kg (10/20/22 12:55 PM) Temperature [36.5-37.9 DegC] 37.0 DegC (10/20/22 12:55 PM) Blood Pressure 136/82mmHg (10/20/22 12:55 PM) BP Location # 1 Left Arm (10/20/22 12:55 PM) Social History Social History Type Response Smoking Status Never smoked cigaret roel Sex Male Patient Care team information Care Team Personnel Name: MD Oconnor Jonathan D Position: Physician - Family Med Member Role: Lifetime Relationship Address: Address: [address] Name: MD Bacon Juan Position: Physician - Family Med Member Role: Primary Care Provider Address: Address: [address] [place] [address] [place] Name: JAY Salmon Christina L Position: Physician - Podiatry Member Role: Lifetime Relationship Address: Address: [facility] [place] [address] [place] Care Team Related Persons Name: ANDRIY KENNEDY Address: home No Address Provided
[2023-04-12 07:31] LABS: Basophils # (auto) 0.02 K/uL (0.00-0.20); Basophils % (auto) 0.3 %; Eosinophils # (auto) 0.03 K/uL (0.00-0.50); Eosinophils % (auto) 0.4 %; Hematocrit (blood only) 43.7 % (42.0-52.0); Hemoglobin 15.4 g/dl (14.0-18.0); Immature Granulocytes # (auto) 0.02 K/uL (0.01-0.20); Immature Granulocytes % (auto) 0.3 %; Lymphocytes # (auto) 1.62 K/uL (1.20-3.40); Lymphocytes % (auto) 23.5 %; Mean Corpuscular Hemoglobin 30.9 pg (25.0-34.0); Mean Corpuscular Hgb Conc 35.2 g/dL (32.0-36.0); Mean Corpuscular Volume 87.8 fL (80.0-100.0); Mean Platelet Volume 9.9 fL (9.4-12.4); Monocytes # (auto) 0.78 K/uL (0.11-0.59); Monocytes % (auto) 11.3 %; Neutrophils # (auto) 4.43 K/uL (1.40-6.50); Neutrophils % (auto) 64.2 %; Platelet Count 150 K/uL (130-400); RDW Coefficient of Variation 12.7 % (11.5-14.5); Red Blood Count 4.98 M/uL (4.70-6.10)
[2023-04-12] MEDS: ONDANSETRON INJ 2 MG/ML 2 ML VIAL IV PRN (07:33)
[2023-04-12] MEDS: ACETAMINOPHEN 1,000 MG/100 ML VIAL IV PRN (07:35)
[2023-04-12 07:45] LABS: Albumin Globulin Ratio 1.6 (0.9-2); Albumin Level 4.2 gm/dl (3.4-5.0); BUN Creatinine Ratio 16.7 (10-20); Bilirubin,Total 1.5 mg/dl (0.2-1.0); Calcium 8.9 mg/dl (8.6-10.3); Creatinine Clr Calc Pharmacy 106.2 ml/min; Est GFR (African American) 105.7 ml/min; Est GFR (Non-African American) 91.2 ml/min; Globulin 2.6 gm/dl (2.5-4.0); Potassium 3.8 mmol/L (3.5-5.1); Total Protein 6.8 gm/dl (6.0-8.3)
--- NOTE | 2023-04-12 07:51 | XRay Report ---
XR chest 1V portable HISTORY: 62 years-old Male upper abd pain acute epigastric abdominal pain COMPARISON: CTA chest 04/11/2023 TECHNIQUE: AP view of the chest FINDINGS: Cardiomediastinal and hilar silhouettes are within normal limits. No pneumothorax, pleural effusion o r airspace consolidation. Bones appear grossly intact. IMPRESSION: No acute process. ACT 112: Negative or not required by law. The above report was generated using voice recognition software. It may contain grammatical, syntax o r spelling errors. Electronically signed by: Hipolito Ventura M.D. 04/12/2023 7:50 AM
--- NOTE | 2023-04-12 07:52 | XRay Report ---
KUB CLINICAL HISTORY: Small bowel obstruction. FINDINGS: 2 AP, portable, supine abdominal radiographs are correlated with abdominal CT dated 4. There is evidence of a persistent small bowel obstruction. Distended and gas-filled loops of small bowel measure up to 3.6 cm. No evidence of intraperitoneal free air is seen on these supine images. There are no abnormal abdominal calcifications. Excreted IV contrast is seen in the bladder. There ar e pelvic phleboliths. The skeletal structures are osteopenic and appear intact. There is moderate lum bosacral spondylosis. IMPRESSION: Persistent small bowel obstruction. Electronically signed by: Nirav Resendiz M.D. 04/12/2023 7:50 AM
[2023-04-12] MEDS: PIPERACILLIN/TAZOBACTAM 4.5 GM in DEXTROSE 5% MINI-B 100 ML IV SCH (07:56)
[2023-04-12] MEDS ORDERED: MoRPHine SULFATE 4 MG/ML 1 ML CARP\\VIAL IV PRN (08:10)
--- NOTE | 2023-04-12 08:15 | Electrocardiogram Report ---
Test Reason : Blood Pressure : / mmHG Vent. Rate : 071 BPM Atrial Rate : 071 BPM P-R Int : 190 ms QRS Dur : 084 ms QT Int : 384 ms P-R-T Axes : 048 013 047 degrees QTc Int : 417 ms Normal sinus rhythm Normal ECG When compared with ECG of 12-APR-2022 12:04, No significant change was found Confirmed by Conor Conroy ([id number]) on 04/12/2023 8:15:02 AM Referred By: REFERRED SELF Confirmed By:Conor Conroy
--- NOTE | 2023-04-12 11:27 | XRay Report ---
KUB HISTORY: Status post placement of an enteric tube NG placement COMPARISON: KUB of same day, CT 04/11/2023 FINDINGS: Persistent small bowel obstruction with stable to slightly improved dilation of the small b owel. Status post placement of enteric tube with distal tip projected over the gastric body. Contrast in the urinary bladder. No renal calculi. No ureteral calculi. No pneumoperitoneum or pneumatosis. No fracture. IMPRESSION: 1. Status post placement of an enteric tube with distal tip projected over the gastric body. 2. Persistent small bowel obstruction with stable to mildly improved small bowel distention. ACT 112: Negative or not required by law. The above report was generated using voice recognition software. It may contain grammatical, syntax o r spelling errors. Electronically signed by: Hipolito Ventura M.D. 04/12/2023 11:25 AM
[2023-04-12] MEDS: PANTOprazole 40 MG in SYRINGE 0 ML IV SCH (13:07)
[2023-04-12] MEDS: HEPARIN SOD 5,000 UNIT/0.5 ML VIAL SQ SCH (13:07)
--- NOTE | 2023-04-12 13:45 | Hospitalist Progress Note ---
Date of Service April 12, 2023 Assessment & Plan (1) SBO (small bowel obstruction): Plan: NG tube is now in place. Appreciate general surgery consultation and recommendations. Conservative management for now (2) Incarcerated umbilical hernia: Plan: Previous repair. This does not appear to be a problem at this time (3) Hyperlipidemia: Plan: Stable. Medical management is on hold (4) Hypertension: Plan: Stable. Medical management is on hold Plan Hopeful discharge back to home soon Admission and Anticipated Discharge Date Admission Date: April 12, 2023 Subjective Alert and oriented. No acute distress. KUB done today, April 12, continues to reveal evidence of small bowel obstruction. NG tube has been ordered by general surgery and now is in place. He previously had incarcerated umbilical hernia repair. Hopefully further surgery can be avoided. He has been started on subcutaneous heparin and intravenous Protonix for prophylaxis. Continue IV fluids and n.p.o. status for now Review of Systems 2 Review of Systems: Constitutional-no fever or chills ENT-no blurred vision, no double vision, no epistaxis, no sore throat Respiratory-no cough, no wheezing, no shortness of breath Cardiac-no palpitations, no chest pain, no syncope GI-intermittent nausea, no vomiting, no diarrhea, no melena, no hematochezia -no urinary retention, no urinary incontinence, no dysuria, no hematuria Musculoskeletal-no joint pain, no muscle tenderness Skin-no bruising, no rashes, no pruritus Neuro-no isolated weakness, no paresthesia Psych-no depression, no anxiety Physical Exam 2 Physical Exam: General-alert and oriented x3, no fever, no chills HEENT-head atraumatic and normocephalic, pupils equal and reactive to light, extraocular muscles intact. NG tube is in place Neck-no lymphadenopathy or thyromegaly, trachea midline Chest-clear to auscultation. No rales, wheezing or rhonchi Cardiac-regular rate and rhythm, normal S1 and S2 Abdomen-normal bowel sounds, nontender, no hepatosplenomegaly. Previous umbilical surgical site is unremarkable Extremities-no cyanosis, clubbing, or edema Neuro-cranial nerves II through XII intact, motor and sensory function within normal limits, strength symmetrical, no focal deficits Psych-flat affect Results & Data Results & Data Vital Signs (Past 12 Hours) Vital Signs Temp Pulse Resp BP Pulse Ox O2 Del Method 04/12/23 10:47 36.4 C L 66 18 145/87 H 95 Room Air 04/12/23 07:07 36.5 C 63 16 117/79 98 Room Air 04/12/23 02:10 Room Air 04/12/23 02:09 36.9 C 67 16 149/82 H 97 Room Air Laboratory Results 04/12/23 06:24 04/12/23 06:24 PG Care Time/CCT Total # of Minutes Spent Total Time Spent with Patient: Total time spent is greater than 50% in coordination of care (as documented) at patient's floor/unit and/or counseling patient: Coding Level of Care Code 63107 SUB INP/OBS CARE 3/50MIN Diagnoses SBO (small bowel obstruction) K56.609 Incarcerated umbilical hernia K42.0 Hyperlipidemia E78.5 Hypertension I10
[2023-04-12] MEDS: diphenhydrAMINE 50 MG/ML VIAL IV ONE (20:34)
[2023-04-12] MEDS: KETOROLAC TROMETHAMINE 15 MG/ML VIAL IV PRN (20:35)
[2023-04-13 07:40] LABS: Basophils # (auto) 0.02 K/uL (0.00-0.20); Basophils % (auto) 0.3 %; Eosinophils # (auto) 0.03 K/uL (0.00-0.50); Eosinophils % (auto) 0.5 %; Hematocrit (blood only) 42.2 % (42.0-52.0); Hemoglobin 14.6 g/dl (14.0-18.0); Immature Granulocytes # (auto) 0.02 K/uL (0.01-0.20); Immature Granulocytes % (auto) 0.3 %; Lymphocytes # (auto) 1.33 K/uL (1.20-3.40); Lymphocytes % (auto) 22.9 %; Mean Corpuscular Hemoglobin 30.8 pg (25.0-34.0); Mean Corpuscular Hgb Conc 34.6 g/dL (32.0-36.0); Mean Platelet Volume 9.7 fL (9.4-12.4); Monocytes % (auto) 10.3 %; Neutrophils % (auto) 65.7 %; Platelet Count 140 K/uL (130-400); RDW Coefficient of Variation 12.8 % (11.5-14.5); RDW Standard Deviation 41.5 fL (36.4-46.3); Red Blood Count 4.74 M/uL (4.70-6.10)
[2023-04-13 08:07] LABS: Albumin Globulin Ratio 1.5 (0.9-2); Albumin Level 3.7 gm/dl (3.4-5.0); BUN Creatinine Ratio 18.1 (10-20); Bilirubin,Total 1.9 mg/dl (0.2-1.0); Calcium 8.1 mg/dl (8.6-10.3); Creatinine Clr Calc Pharmacy 101.7 ml/min; Est GFR (African American) 100.3 ml/min; Est GFR (Non-African American) 86.5 ml/min; Globulin 2.4 gm/dl (2.5-4.0); Magnesium 2.1 mg/dl (1.7-2.4); Potassium 3.9 mmol/L (3.5-5.1); Total Protein 6.1 gm/dl (6.0-8.3)
[2023-04-13] MEDS: CHLORASEPTIC (PHENOL) 1.4% SOLN 180 ML BTL MT PRN (08:50)
--- NOTE | 2023-04-13 15:15 | Surgery Progress Note ---
<Statement entered by Terrell Joshi DO - 04/13/23 16:38> I have seen and examined this patient. I agree with the plan. Date of Service April 13, 2023 Assessment & Plan (1) SBO (small bowel obstruction): Plan: pt here w/ abdominal pain and findings concerning for sbo he is feeling well, no pain/nausea. + gas NGT with 350cc documented abdomen soft/non tender okay to perform clamp trial. if passes and low residuals may remove NGT and start sips/chips Admission and Anticipated Discharge Date Admission Date: April 12, 2023 Subjective patient feeling much better. no pain/nausea since yesterday AM. reports passing flatus. tube bothers back of throat Physical Exam Physical Exam: awake/alert, no distress Gastrointestinal (Abdomen): Inspection/Auscultation: abdomen not distended Percussion/Palpation: abdomen soft; abdomen nontender Results & Data Vital Signs (Past 12 Hours) Vital Signs Temp Pulse Resp BP Pulse Ox O2 Del Method 04/13/23 14:59 98.0 F 75 16 151/88 H 96 Room Air 04/13/23 07:30 98.2 F 93 H 18 143/68 H 96 Room Air PG Care Time/CCT Total # of Minutes Spent Total Time Spent with Patient: Total time spent is greater than 50% in coordination of care (as documented) at patient's floor/unit and/or counseling patient: Coding Level of Care Code 04657 SUB INP/OBS CARE 1/25MIN Diagnoses SBO (small bowel obstruction) K56.609
--- NOTE | 2023-04-13 17:46 | Hospitalist Progress Note ---
Date of Service April 13, 2023 Assessment & Plan (1) SBO (small bowel obstruction): Plan: NG tube will be clamped according to general surgery note. Hopefully this can be removed and he can be started on a clear liquid diet. Continue conservative management (2) Incarcerated umbilical hernia: Plan: Previous repair. This does not appear to be a problem at this time (3) Hyperlipidemia: Plan: Stable. Medical management is on hold (4) Hypertension: Plan: Stable. Medical management is on hold Plan Hopeful discharge back to home soon Admission and Anticipated Discharge Date Admission Date: April 12, 2023 Subjective Alert and oriented. No complaints. General surgery entry noted. NG tube will be clamped and if he tolerates this it will be removed and he will be started on clear liquids. Intravenous antibiotics have been discontinued. Review of Systems 2 Review of Systems: Constitutional-no fever or chills ENT-no blurred vision, no double vision, no epistaxis, no sore throat Respiratory-no cough, no wheezing, no shortness of breath Cardiac-no palpitations, no chest pain, no syncope GI-intermittent nausea, no vomiting, no diarrhea, no melena, no hematochezia -no urinary retention, no urinary incontinence, no dysuria, no hematuria Musculoskeletal-no joint pain, no muscle tenderness Skin-no bruising, no rashes, no pruritus Neuro-no isolated weakness, no paresthesia Psych-no depression, no anxiety Physical Exam 2 Physical Exam: General-alert and oriented x3, no fever, no chills HEENT-head atraumatic and normocephalic, pupils equal and reactive to light, extraocular muscles intact. NG tube is in place Neck-no lymphadenopathy or thyromegaly, trachea midline Chest-clear to auscultation. No rales, wheezing or rhonchi Cardiac-regular rate and rhythm, normal S1 and S2 Abdomen-normal bowel sounds, nontender, no hepatosplenomegaly. Previous umbilical surgical site is unremarkable Extremities-no cyanosis, clubbing, or edema Neuro-cranial nerves II through XII intact, motor and sensory function within normal limits, strength symmetrical, no focal deficits Psych-flat affect Results & Data Results & Data Vital Signs (Past 12 Hours) Vital Signs Temp Pulse Resp BP Pulse Ox O2 Del Method 04/13/23 14:59 36.7 C 75 16 151/88 H 96 Room Air 04/13/23 07:30 36.8 C 93 H 18 143/68 H 96 Room Air Laboratory Results 04/13/23 07:00 04/13/23 07:00 PG Care Time/CCT Total # of Minutes Spent Total Time Spent with Patient: Total time spent is greater than 50% in coordination of care (as documented) at patient's floor/unit and/or counseling patient: Coding Level of Care Code 99305 SUB INP/OBS CARE 2/35MIN Diagnoses SBO (small bowel obstruction) K56.609 Incarcerated umbilical hernia K42.0 Hyperlipidemia E78.5 Hypertension I10
[2023-04-14 06:18] LABS: Basophils # (auto) 0.02 K/uL (0.00-0.20); Basophils % (auto) 0.3 %; Eosinophils # (auto) 0.05 K/uL (0.00-0.50); Eosinophils % (auto) 0.9 %; Hematocrit (blood only) 40.6 % (42.0-52.0); Hemoglobin 14.3 g/dl (14.0-18.0); Immature Granulocytes # (auto) 0.01 K/uL (0.01-0.20); Immature Granulocytes % (auto) 0.2 %; Lymphocytes # (auto) 1.51 K/uL (1.20-3.40); Lymphocytes % (auto) 25.7 %; Mean Corpuscular Hemoglobin 30.8 pg (25.0-34.0); Mean Corpuscular Hgb Conc 35.2 g/dL (32.0-36.0); Mean Corpuscular Volume 87.5 fL (80.0-100.0); Monocytes # (auto) 0.55 K/uL (0.11-0.59); Monocytes % (auto) 9.4 %; Neutrophils # (auto) 3.73 K/uL (1.40-6.50); Neutrophils % (auto) 63.5 %; Platelet Count 124 K/uL (130-400); RDW Coefficient of Variation 12.3 % (11.5-14.5); RDW Standard Deviation 39.1 fL (36.4-46.3); Red Blood Count 4.64 M/uL (4.70-6.10); White Blood Count 5.87 K/ul (4.8-10.8)
[2023-04-14 08:03] LABS: Calcium 8.3 mg/dl (8.6-10.3); Potassium 3.7 mmol/L (3.5-5.1)
[2023-04-14 08:09] LABS: BUN Creatinine Ratio 13.5 (10-20); Creatinine Clr Calc Pharmacy 129.2 ml/min; Est GFR (African American) 114.6 ml/min; Est GFR (Non-African American) 98.9 ml/min
--- NOTE | 2023-04-14 10:30 | XRay Report ---
KUB CLINICAL HISTORY: Follow-up small bowel obstruction. FINDINGS: 2 AP, portable, supine abdominal radiographs are compared to study dated 04/12/2023 and corre lated with abdominal CT dated 04/11/2023. An enteric tube has been removed. There is persistent gaseous distention of the small bowel loops which has improved from previous. This likely represents resolvi ng small bowel obstruction. Gas is noted throughout the colon. No evidence of intraperitoneal free ai r is seen on these supine images. There are no abnormal abdominal calcifications. Phleboliths are see n in the pelvis. The skeletal structures are osteopenic and appear intact. There is moderate lumbosac ral spondylosis. IMPRESSION: 1. An enteric tube has been removed. 2. There is mild persistent gaseous distention of the small bowel loops which has improved from previ ous. This likely represents resolving obstruction. Electronically signed by: Nirav Resendiz M.D. 04/14/2023 10:29 AM
--- NOTE | 2023-04-14 11:54 | Surgery Progress Note ---
Date of Service April 14, 2023 Assessment & Plan (1) SBO (small bowel obstruction): Plan: Clinically and radiographically improving. Will advance diet over the next 24 hours. I recommend that he continues to do well potential discharge tomorrow. Admission and Anticipated Discharge Date Admission Date: April 12, 2023 Subjective Patient seen. Feeling much better. No further nausea or pain. He is tolerating clear liquids Physical Exam Constitutional: WD/WN, vitals as above no acute distress and not ill appearing Eyes: PERRL, conjunctivae normal, anicteric sclerae EOM intact bilaterally ENMT: external ear and nose normal, oropharynx normal Ears: no hearing impairment Neck: trachea midline, no thyromegaly Respiratory: normal respiratory effort; no respiratory distress and does not use accessory muscles Cardiovascular: Rate/Rhythm: regular rate and regular rhythm Gastrointestinal (Abdomen): Soft. Nontender nondistended with active bowel sounds Skin: no rashes, warm and dry Psychiatric: Orientation: alert, oriented x 3 and cooperative Results & Data Vital Signs (Past 12 Hours) Vital Signs Temp Pulse Resp BP Pulse Ox O2 Del Method 04/14/23 07:55 36.8 C 63 16 129/81 95 Room Air PG Care Time/CCT Total # of Minutes Spent Total Time Spent with Patient: Total time spent is greater than 50% in coordination of care (as documented) at patient's floor/unit and/or counseling patient: Coding Level of Care Code 27755 SUB INP/OBS CARE 2/35MIN Diagnoses SBO (small bowel obstruction) K56.609
--- NOTE | 2023-04-14 14:38 | Hospitalist Progress Note ---
Date of Service April 14, 2023 Assessment & Plan (1) SBO (small bowel obstruction): Plan: Appears to have resolved. NG tube has been removed. He has been started on clear liquid diet which will be advanced as tolerated. Appreciate general surgery assistance (2) Incarcerated umbilical hernia: Plan: Previous repair. This does not appear to be a problem at this time (3) Hyperlipidemia: Plan: Stable. Medical management is on hold (4) Hypertension: Plan: Stable. Medical management is on hold Plan Hopeful discharge to home tomorrow, April 15 Admission and Anticipated Discharge Date Admission Date: April 12, 2023 Subjective Alert and oriented. The NG tube has been removed and he is now on clear liquids. KUB obtained this morning, April 14, looks better. Surgery entry noted. Hopefully home tomorrow, April 15 Review of Systems 2 Review of Systems: Constitutional-no fever or chills ENT-no blurred vision, no double vision, no epistaxis, no sore throat Respiratory-no cough, no wheezing, no shortness of breath Cardiac-no palpitations, no chest pain, no syncope GI- nausea has resolved. No vomiting, no diarrhea, no melena, no hematochezia -no urinary retention, no urinary incontinence, no dysuria, no hematuria Musculoskeletal-no joint pain, no muscle tenderness Skin-no bruising, no rashes, no pruritus Neuro-no isolated weakness, no paresthesia Psych-no depression, no anxiety Physical Exam 2 Physical Exam: General-alert and oriented x3, no fever, no chills HEENT-head atraumatic and normocephalic, pupils equal and reactive to light, extraocular muscles intact. NG tube is in place Neck-no lymphadenopathy or thyromegaly, trachea midline Chest-clear to auscultation. No rales, wheezing or rhonchi Cardiac-regular rate and rhythm, normal S1 and S2 Abdomen-normal bowel sounds, nontender, no hepatosplenomegaly. Previous umbilical surgical site is unremarkable Extremities-no cyanosis, clubbing, or edema Neuro-cranial nerves II through XII intact, motor and sensory function within normal limits, strength symmetrical, no focal deficits Psych-flat affect Results & Data Results & Data Vital Signs (Past 12 Hours) Vital Signs Temp Pulse Resp BP Pulse Ox O2 Del Method 04/14/23 07:55 36.8 C 63 16 129/81 95 Room Air Laboratory Results 04/14/23 05:22 04/14/23 05:22 PG Care Time/CCT Total # of Minutes Spent Total Time Spent with Patient: Total time spent is greater than 50% in coordination of care (as documented) at patient's floor/unit and/or counseling patient: Coding Level of Care Code 46985 SUB INP/OBS CARE 3/50MIN Diagnoses SBO (small bowel obstruction) K56.609 Incarcerated umbilical hernia K42.0 Hyperlipidemia E78.5 Hypertension I10
[2023-04-15 07:06] LABS: BUN Creatinine Ratio 12.7 (10-20); Calcium 8.8 mg/dl (8.6-10.3); Est GFR (African American) 111.5 ml/min; Est GFR (Non-African American) 96.2 ml/min; Potassium 3.8 mmol/L (3.5-5.1)
--- NOTE | 2023-04-15 11:43 | Surgery Progress Note ---
Date of Service April 15, 2023 Assessment & Plan (1) SBO (small bowel obstruction): Plan: Resolved. Doing well. Recommend discharge. Follow-up as needed. Admission and Anticipated Discharge Date Admission Date: April 12, 2023 Subjective Patient seen. Doing well. Tolerating regular diet and is having bowel movements Physical Exam Constitutional: WD/WN, vitals as above no acute distress and not ill appearing Eyes: PERRL, conjunctivae normal, anicteric sclerae EOM intact bilaterally ENMT: external ear and nose normal, oropharynx normal Ears: no hearing impairment Neck: trachea midline, no thyromegaly Respiratory: normal respiratory effort; no respiratory distress and does not use accessory muscles Cardiovascular: Rate/Rhythm: regular rate and regular rhythm Gastrointestinal (Abdomen): Soft. Nontender. Positive bowel sounds Skin: no rashes, warm and dry Psychiatric: Orientation: alert, oriented x 3 and cooperative Results & Data Vital Signs (Past 12 Hours) Vital Signs Temp Pulse Resp BP Pulse Ox O2 Del Method 04/15/23 07:32 36.9 C 64 16 138/76 96 Room Air PG Care Time/CCT Total # of Minutes Spent Total Time Spent with Patient: Total time spent is greater than 50% in coordination of care (as documented) at patient's floor/unit and/or counseling patient: Coding Level of Care Code 46193 SUB INP/OBS CARE 03/29MIN Diagnoses SBO (small bowel obstruction) K56.609
--- NOTE | 2023-04-15 12:51 | Discharge Summary ---
Date of Service April 15, 2023 Admission HPI Per Admitting Provider The patient is a 62-year-old male with a past medical history including incarcerated umbilical hernia, surgery for twisted colon as an infant, hypertensive urgency, hyperlipidemia, osteoarthritis, and had a colonoscopy earlier in the year with removal of benign polyps. He presented to the emergency department with acute onset of abdominal pain, spasms, nausea without vomiting and generalized fatigue. He reports no previous occurrence of the symptoms. He denied any recent change in liquid or food intake. Principal Diagnosis Small bowel obstruction Discharge Exam General-alert and oriented x3, no fever, no chills HEENT-head atraumatic and normocephalic, pupils equal and reactive to light, extraocular muscles intact. NG tube is in place Neck-no lymphadenopathy or thyromegaly, trachea midline Chest-clear to auscultation. No rales, wheezing or rhonchi Cardiac-regular rate and rhythm, normal S1 and S2 Abdomen-normal bowel sounds, nontender, no hepatosplenomegaly. Previous umbilical surgical site is unremarkable Extremities-no cyanosis, clubbing, or edema Neuro-cranial nerves II through XII intact, motor and sensory function within normal limits, strength symmetrical, no focal deficits Psych-flat affect Discharge Data Allergies Allergy/AdvReac Type Severity Reaction Status Date / Time No Known Allergies Allergy Verified 04/12/23 00:32 Consultations 04/12/23 00:13 ED Decision to Admit Stat 04/12/23 00:48 Consult General Surgery Routine Ordered Studies 04/11/23 23:01 CT Abd and Pelvis [CT abd pelvis IV con only] Stat CT angio chest PE protocol Stat Hospital Course (1) SBO (small bowel obstruction): Appears to have resolved. NG tube has been removed. Diet has been advanced and well-tolerated. No nausea or vomiting. He is passing gas and had a bowel movement. Surgery entry noted. (2) Incarcerated umbilical hernia: Previous repair. This does not appear to be a problem at this time (3) Hyperlipidemia: Stable. Medical management is on hold (4) Hypertension: Stable. Medical management is on hold Plan Home today, April 15 Total Time Total Time Spent Total Time Spent (In Minutes): 35-minute Discharge Plan Discharge Items Patient Disposition: Home - Self-Care Reason For Visit: SBO Discharge Diagnosis: Small bowel obstruction Condition on Discharge: Good Activity: Resume your previous activity Non-emergency contact: Primary Care Provider Call non-emergency contact if: your symptoms worsen Follow-up/Referrals: Jovi Bacon MD [Primary Care Provider] - Diet: Regular and Heart Healthy Addtl Attending Provider Instructions: All medications remain the same. Take a stool softener daily Pending Studies at Discharge: No Stand-Alone Forms: My [facility] [email or web address], Smoking Cessation Medications and DC Order Prescriptions: Continued multivitamin Tablet 1 tab PO QAM ibuprofen 200 mg Tablet 200 - 400 mg PO QID PRN (Reason: Pain) cholecalciferol (vitamin D3) [Vitamin D3] 1,000 unit Capsule 1,000 unit PO QAM turmeric 400 mg Capsule 1 tab PO QAM rosuvastatin [Crestor] 10 mg tablet 10 mg PO QAM Glucosamine Chondroitin 550-30-1 mg Capsule 2 cap PO DAILY aspirin 81 mg Tablet,Delayed Release (Dr/Ec) 81 mg PO QAM Qty: 30 0RF Discharge Orders: Discharge Order (Routine); Ordered 04/15/23 Ordered By: Adam Aceves Admission Data Admit Date/Time: 04/12/23 00:48 Attending Provider: Adam Aceves Admit Provider: Neal Elkins Primary Care Provider: Jovi Bacon Other Providers: Terrell Joshi; Neal Elkins Coding Level of Care Code 05711 INP/OBS DISCH >30 MIN Diagnoses SBO (small bowel obstruction) K56.609 Incarcerated umbilical hernia K42.0 Hyperlipidemia E78.5 Hypertension I10
== END 2023-04-15 14:38 | disposition home or self-care (01) | DRG 390 ==
LOC: ED 20:45 → 3N 04-12 00:48 → SUATTDRO 04-12 00:48 → 3N 04-12 01:35